=== PATIENT | female | born 1935 | race Caucasian/White ===

== ENCOUNTER 2017-02-09 09:53 | Inpatient (IN) | payer MEDICARE, OTHER ==
[2017-02-09] MEDS ORDERED: SODIUM CHLORIDE 0.9% 1,000 ML IV STA (10:08)
--- NOTE | 2017-02-09 10:20 | ED ---
General Adult HPI - General Chief complaint: Syncope Stated complaint: Fall, Syncope Time Seen by Provider: 02/09/17 09:59 Source: patient, EMS, RN notes reviewed, old records reviewed Mode of arrival: EMS Limitations: no limitations - History of Present Illness Initial comments: This is a 81-year-old female ER for evaluation. This patient presents for evaluation of syncope. Patient is an accurate historian bolus and first that patient was walking into room and completely passed out. She does not lose consciousness and has no trauma she was at the ground easily. Patient denies any chest pain headache or shortness of breath. Patient states she does feel a little weak. She states she did take his Medicare medication as described. Again patient's poor historian, history is obtained from EMS and staff - Related Data Home Medications Medication Instructions Recorded Confirmed Insulin Detemir [Levemir] 40 unit SQ DAILY@1700 12/19/14 10/21/16 Isosorbide Mononitrate [Imdur] 120 mg PO DAILY 12/19/14 10/21/16 Allopurinol [Zyloprim] 100 mg PO DAILY 05/10/15 10/21/16 [place]-3 Fatty Acids/Fish Oil [Fish 1 cap PO BID 05/10/15 10/21/16 Oil 1,000 mg Softgel] Acetaminophen Tab [Tylenol] 650 mg PO ACHS 09/14/16 10/21/16 Artificial Tears-Hypromellose 2 drops BOTH EYES BID 09/14/16 10/21/16 [Artificial Tear Drops] Menthol/Zinc Oxide [Calmoseptine 1 applic TOPICAL BID 09/14/16 10/21/16 Ointment] Naproxen Sodium [Aleve] 440 mg PO BID PRN 09/14/16 10/21/16 PARoxetine [Paxil] 10 mg PO HS 09/14/16 10/21/16 Solifenacin Succinate [Vesicare] 5 mg PO HS 09/14/16 10/21/16 metFORMIN HCL [Glucophage] 500 mg PO TID 09/14/16 10/21/16 Atenolol [Tenormin] 25 mg PO DAILY 10/21/16 10/21/16 Nystatin 1 applic TOPICAL BID 10/21/16 10/21/16 Selsun Blue Dry Scal 1% Shampoo 1 applic TOPICAL MOFR 10/21/16 10/21/16 Triamcinolone 0.1% Cream [Kenalog] 1 applic TOPICAL BID 10/21/16 10/21/16 Previous Rx's Medication Instructions Recorded Aspirin 81 mg PO DAILY #1 chewable 12/21/14 Furosemide [Lasix] 40 mg PO MOWEFR #0 09/15/16 Potassium Chloride ER [K-Dur 10] 10 meq PO MOWEFR tab.er.prt 09/15/16 Acetaminophen Tab [Tylenol] 650 mg PO Q6HR PRN #0 tab 10/23/16 Aspirin EC [Ecotrin Low Dose] 81 mg PO DAILY #30 tablet.dr 10/23/16 Atorvastatin [Lipitor] 10 mg PO HS #30 tab 10/23/16 Fenofibrate [Lofibra] 160 mg PO DAILY #30 tab 10/23/16 Folic Acid 1 mg PO DAILY@1200 #30 tab 10/23/16 Levofloxacin [Levaquin] 250 mg PO Q24H #5 tab 10/23/16 Multivitamins, Thera [Multivitamin] 1 each PO DAILY@1200 #30 tab 10/23/16 Thiamine [Vitamin B-1] 100 mg PO DAILY@1200 #30 tab 10/23/16 Allergies Allergy/AdvReac Type Severity Reaction Status Date / Time No Known Allergies Allergy Verified 02/09/17 11:19 Review of Systems ROS Statement: Those systems with pertinent positive or pertinent negative responses have been documented in the HPI. ROS Other: All systems not noted in ROS Statement are negative. Past Medical History Past Medical History: Coronary Artery Disease (CAD), Heart Failure, Diabetes Mellitus, Hyperlipidemia, Hypertension Additional Past Medical History / Comment(s): shingles a year ago, arthritis in left hand and shoulders. History of Any Multi-Drug Resistant Organisms: None Reported Past Surgical History: Heart Catheterization With Stent, Hysterectomy, Orthopedic Surgery Additional Past Surgical History / Comment(s): bilateral Cateract surgery Past Anesthesia/Blood Transfusion Reactions: No Reported Reaction Date of Last Stent Placement:: 1999 Past Psychological History: Depression Smoking Status: Never smoker Past Alcohol Use History: None Reported Past Drug Use History: None Reported - Past Family History Father Family Medical History: No Reported History General Exam Limitations: no limitations General appearance: alert, in no apparent distress Head exam: Present: atraumatic, normocephalic, normal inspection Eye exam: Present: normal appearance, PERRL, EOMI. Absent: scleral icterus, conjunctival injection, periorbital swelling ENT exam: Present: normal exam, mucous membranes moist Neck exam: Present: normal inspection. Absent: tenderness, meningismus, lymphadenopathy Respiratory exam: Present: normal lung sounds bilaterally. Absent: respiratory distress, wheezes, rales, rhonchi, stridor Cardiovascular Exam: Present: normal rhythm, bradycardia, normal heart sounds. Absent: systolic murmur, diastolic murmur, rubs, gallop, clicks GI/Abdominal exam: Present: soft, normal bowel sounds. Absent: distended, tenderness, guarding, rebound, rigid Extremities exam: Present: normal inspection, full ROM, normal capillary refill. Absent: tenderness, pedal edema, joint swelling, calf tenderness Back exam: Present: normal inspection Neurological exam: Present: alert, oriented X3, CN II-XII intact Psychiatric exam: Present: normal affect, normal mood Skin exam: Present: warm, dry, intact, normal color. Absent: rash Course Vital Signs 02/09/17 02/09/17 02/09/17 09:59 10:07 10:25 Temperature 96.9 F L Pulse Rate 52 L 46 L Pulse Rate [ 51 L Bilateral Radial] Respiratory 15 15 Rate Blood Pressure 104/56 103/56 O2 Sat by Pulse 97 100 Oximetry 02/09/17 10:48 Temperature Pulse Rate 51 L Pulse Rate [ Bilateral Radial] Respiratory 15 Rate Blood Pressure 104/54 O2 Sat by Pulse 99 Oximetry - Reevaluation(s) Reevaluation #1: 02/09/17 11:31 Patient remains bradycardic, feels like she did not pass up of blood pressure is stable EKG Findings - EKG Comments: EKG Findings:: EKG shows sinus bradycardia rate of 51, pO2 26, QRS 76, QTC 414 Medical Decision Making - Medical Decision Making 81 female the ER with syncope, bradycardia, patient was brought to the emergency room, EKG was obtained patient was placed on pacer pads secondary bradycardia, blood pressure is maintaining stable although lower than her normal , patient is not passed out one emergency room and will be admitted for telemetry and cardiology evaluation - Lab Data Result diagrams: 02/09/17 10:22 02/09/17 10:22 Lab Results 02/09/17 02/09/17 02/09/17 Range/Units 10:22 10:22 10:22 WBC 8.7 (3.8-10.6) k/uL RBC 4.02 (3.80-5.40) m/uL Hgb 11.9 (11.4-16.0) gm/dL Hct 37.1 (34.0-46.0) % MCV 92.3 (80.0-100.0) fL MCH 29.6 (25.0-35.0) pg MCHC 32.0 (31.0-37.0) g/dL RDW 15.6 H (11.5-15.5) % Plt Count 164 (150-450) k/uL Neutrophils % 71 % Lymphocytes % 15 % Monocytes % 5 % Eosinophils % 7 % Basophils % 1 % Neutrophils # 6.2 (1.3-7.7) k/uL Lymphocytes # 1.3 (1.0-4.8) k/uL Monocytes # 0.5 (0-1.0) k/uL Eosinophils # 0.6 (0-0.7) k/uL Basophils # 0.1 (0-0.2) k/uL PT (9.0-12.0) sec INR (<1.1) APTT (22.0-30.0) sec Sodium 142 (137-145) mmol/L Potassium 4.3 (3.5-5.1) mmol/L Chloride 107 (98-107) mmol/L Carbon Dioxide 24 (22-30) mmol/L Anion Gap 11 mmol/L BUN 30 H (7-17) mg/dL Creatinine 1.15 H (0.52-1.04) mg/dL Est GFR (MDRD) Af Amer 55 (>60 ml/min/1.73 sqM) Est GFR (MDRD) Non-Af 45 (>60 ml/min/1.73 sqM) Glucose 128 H (74-99) mg/dL Calcium 10.7 H (8.4-10.2) mg/dL Phosphorus 3.4 (2.5-4.5) mg/dL Magnesium 1.9 (1.6-2.3) mg/dL Total Bilirubin 0.6 (0.2-1.3) mg/dL AST 30 (14-36) U/L ALT 27 (9-52) U/L Alkaline Phosphatase 45 (38-126) U/L Total Creatine Kinase 31 (30-135) U/L CK-MB (CK-2) 0.9 (0.0-2.4) ng/mL CK-MB (CK-2) Rel Index 2.9 Troponin I <0.012 (0.000-0.034) ng/mL Total Protein 6.3 (6.3-8.2) g/dL Albumin 3.5 (3.5-5.0) g/dL 02/09/17 Range/Units 10:22 WBC (3.8-10.6) k/uL RBC (3.80-5.40) m/uL Hgb (11.4-16.0) gm/dL Hct (34.0-46.0) % MCV (80.0-100.0) fL MCH (25.0-35.0) pg MCHC (31.0-37.0) g/dL RDW (11.5-15.5) % Plt Count (150-450) k/uL Neutrophils % % Lymphocytes % % Monocytes % % Eosinophils % % Basophils % % Neutrophils # (1.3-7.7) k/uL Lymphocytes # (1.0-4.8) k/uL Monocytes # (0-1.0) k/uL Eosinophils # (0-0.7) k/uL Basophils # (0-0.2) k/uL PT 11.5 (9.0-12.0) sec INR 1.1 (<1.1) APTT 22.1 (22.0-30.0) sec Sodium (137-145) mmol/L Potassium (3.5-5.1) mmol/L Chloride (98-107) mmol/L Carbon Dioxide (22-30) mmol/L Anion Gap mmol/L BUN (7-17) mg/dL Creatinine (0.52-1.04) mg/dL Est GFR (MDRD) Af Amer (>60 ml/min/1.73 sqM) Est GFR (MDRD) Non-Af (>60 ml/min/1.73 sqM) Glucose (74-99) mg/dL Calcium (8.4-10.2) mg/dL Phosphorus (2.5-4.5) mg/dL Magnesium (1.6-2.3) mg/dL Total Bilirubin (0.2-1.3) mg/dL AST (14-36) U/L ALT (9-52) U/L Alkaline Phosphatase (38-126) U/L Total Creatine Kinase (30-135) U/L CK-MB (CK-2) (0.0-2.4) ng/mL CK-MB (CK-2) Rel Index Troponin I (0.000-0.034) ng/mL Total Protein (6.3-8.2) g/dL Albumin (3.5-5.0) g/dL Critical Care Time Critical Care Time: Yes Total Critical Care Time: 31 Disposition Clinical Impression: Syncope, Bradycardia Disposition: ADMITTED IP TO THIS HOSP Condition: Fair Referrals: Home Graham MD [Primary Care Provider] - 1-2 days
[2017-02-09 10:35] LABS: Basophils # (A) 0.1 k/uL (0-0.2); Basophils % (A) 1 %; CH 29.7; CHCM 32.4; Eosinophils # (A) 0.6 k/uL (0-0.7); Eosinophils % (A) 7 %; HCT 37.1 % (34.0-46.0); HDW 2.76; HGB 11.9 gm/dL (11.4-16.0); Luc # (Auto) 0.17; Luc % (Auto) 2; Lymphocytes # (A) 1.3 k/uL (1.0-4.8); Lymphocytes % (A) 15 %; MCH 29.6 pg (25.0-35.0); MCV 92.3 fL (80.0-100.0); Monocytes # (A) 0.5 k/uL (0-1.0); Monocytes % (A) 5 %; Neutrophils # (A) 6.2 k/uL (1.3-7.7); Neutrophils % (A) 71 %; RBC 4.02 m/uL (3.80-5.40); RDW 15.6 % (11.5-15.5); WBC 8.7 k/uL (3.8-10.6); WBC (Perox) 8.91
[2017-02-09 10:46] LABS: INR 1.1 (<1.1); Partial Thromboplastin Time 22.1 sec (22.0-30.0); Prothrombin Time 11.5 sec (9.0-12.0)
[2017-02-09 10:55] LABS: Calcium 10.7 mg/dL (8.4-10.2); Creatine Kinase 31 U/L (30-135); Magnesium 1.9 mg/dL (1.6-2.3); Phosphorous 3.4 mg/dL (2.5-4.5); Potassium 4.3 mmol/L (3.5-5.1); Total Bilirubin 0.6 mg/dL (0.2-1.3); Total Protein 6.3 g/dL (6.3-8.2)
[2017-02-09 11:06] LABS: Creatine Kinase MB 0.9 ng/mL (0.0-2.4); Troponin I <0.012 ng/mL (0.000-0.034)
[2017-02-09] MEDS ORDERED: NITROGLYCERIN SL TABS 0.4 MG TAB SUBLINGUAL PRN (11:28)
[2017-02-09] MEDS ORDERED: ASPIRIN 81 MG CHEW PO STA (11:28)
[2017-02-09 11:57] LABS: Appearance,Urine Cloudy (Clear); Bacteria,Urine Rare /hpf; Bilirubin,Urine Negative (Negative); Glucose,Urine (UA) Negative (Negative); Ketones,Urine Negative (Negative); Leukocyte Esterase,Urine Large (Negative); Nitrite,Urine Positive (Negative); Particle Count 41900; Protein,Urine Negative (Negative); RBC,Urine 17 /hpf (0-5); Specific Gravity,Urine 1.008 (1.001-1.035); Squamous Epithelial Cell,Urine 1 /hpf (0-4); UA Billing (MACRO vs. MICRO) MICRO; Urobilinogen,Urine <2.0 mg/dL (<2.0); WBC,Urine 155 /hpf (0-5)
[2017-02-09 13:33] LABS: Glucose,Whole Blood 123 mg/dL (75-99)
[2017-02-09] MEDS ORDERED: ACETAMINOPHEN TAB 500 MG TAB PO PRN (13:45)
[2017-02-09] MEDS ORDERED: NAPROXEN 250 MG TAB PO PRN (13:45)
--- NOTE | 2017-02-09 14:20 | XR ---
EXAMINATION TYPE: XR chest 1V portable DATE OF EXAM: 02/09/2017 2:00 PM COMPARISON: Prior chest x-ray 21 October 2016 HISTORY: Pneumonia TECHNIQUE: Single frontal view of the chest is obtained. FINDINGS: Heart size is stable and enlarged. There are overlying cardiac leads. Marked arthropathy i n the left shoulder. No airspace disease, pneumothorax, or pleural effusion. Pulmonary vascularity an d perri within normal limits. IMPRESSION: Cardiomegaly
[2017-02-09] MEDS: POTASSIUM CHLORIDE ER 10 MEQ TAB.ER.PRT PO SCH (14:39)
[2017-02-09] MEDS: FUROSEMIDE 40 MG TAB PO SCH (14:39)
[2017-02-09] MEDS: metFORMIN 500 MG TAB PO SCH ×2 (16:26→23:48)
[2017-02-09 17:06] LABS: Creatine Kinase 36 U/L (30-135)
[2017-02-09 17:16] LABS: Troponin I <0.012 ng/mL (0.000-0.034)
[2017-02-09 17:25] LABS: Glucose,Whole Blood 131 mg/dL (75-99)
[2017-02-09] MEDS: INSULIN DETEMIR 100 UNIT/ML 10 ML VIAL SQ SCH (17:38)
[2017-02-09] MEDS: INSULIN LISPRO (humaLOG) 300 UNIT/3 ML VIAL SQ SCH ×2 (17:39→20:40)
[2017-02-09 20:19] LABS: Glucose,Whole Blood 139 mg/dL (75-99)
[2017-02-09] MEDS: ATORVASTATIN 10 MG TAB PO SCH (20:40)
[2017-02-09] MEDS: ARTIFICIAL TEARS-HYPROMELLOSE DROPS 15 ML BTL BOTH EYES SCH (20:40)
[2017-02-09] MEDS: PARoxetine 10 MG TAB PO SCH (20:40)
[2017-02-09] MEDS: OXYBUTYNIN 10 MG TAB.ER.24 PO SCH (20:40)
[2017-02-09] MEDS ORDERED: NON-FORMULARY DRUG (Omega-3 Fatty Acids/Fish Oil [Fish Oil 1,000 Mg Softgel] 1 CAP) PO SCH (21:00)
[2017-02-09 22:37] LABS: Hemoglobin A1C 5.3 % (4.2-6.1)
[2017-02-09 23:11] LABS: Creatine Kinase 41 U/L (30-135)
[2017-02-09 23:24] LABS: Troponin I <0.012 ng/mL (0.000-0.034)
--- NOTE | 2017-02-09 23:38 | HP ---
DATE OF ADMISSION: 02/09/2017 CHIEF COMPLAINT: Syncope. HISTORY OF PRESENT ILLNESS: This 81-year-old woman with a past medical history of multiple medical problems including CAD, history of CHF, CVA, TIA, diabetes mellitus, hypertension, hyperlipidemia, DJD, history of pneumonia, history of sleep apnea, history of anxiety, depression, being followed by Dr. Graham from physician group was admitted. The patient was living in assisted living facility. Apparently, the patient walked in the lynch. The patient felt dizzy and the patient fell down and the patient had an episode of syncope which was a very brief lasting. The patient presented to [facility] and was found to have significant sinus bradycardia and heart rate was up to 30s and 40s. An EKG done in the ER showed heart rate of 51 with possibly first degree AV block as well. The patient admitted to the hospital for further evaluation and treatment. There is no history of fever, rigors or chills. There is no history of any seizures. No history of any chest pain, palpitations, hematochezia, melena at this time. The patient is receiving beta blockers. Cardiology is on the case. The patient is found to have UTI in the ER also. PAST MEDICAL HISTORY: History of coronary artery disease, history of CHF, CVA, TIA, diabetes mellitus, type II, hypertension, hyperlipidemia, degenerative joint disease, history of pneumonia, sleep apnea, syncope. History of CAD/stent, anxiety, depression. Medications prior to admission include home medications are: 1. Vitamin D3 2000 daily. 2. Aleve 220 mg b.i.d. p.r.n. 3. [place] one application b.i.d. 4. Vitamin B100 mg p.o. daily. 5. Vesicare 5 mg p.o. q.h.s. 8. Tylenol 650 p.o. 9. K-Dur 10 meq Thursday, Thursday, Thursday. 11. Multivitamin one p.o. daily. 12. Glucophage 500 mg p.o. t.i.d. 13. Levemir 40 units subcu daily. 14. Imdur 120 mg p.o. daily. 15. Lasix 40 mg Thursday, Thursday, Thursday. 16. Folic acid 1 mg daily. 17. Fish oil 1 capsule p.o. b.i.d. 18. Lofibra 60 mg p.o. daily. 19. Lipitor 10 mg q.h.s. 20. Tenormin 25 mg daily. 21. Aspirin 81 mg daily. 22. Artificial tears two drops b.i.d. 23. Zyloprim 100 mg p.o. daily. ALLERGIES: None. FAMILY HISTORY: No history of heart disease or strokes in the family. SOCIAL HISTORY: no history of smoking. No history of alcohol. REVIEW OF SYSTEMS: HEENT: No diminished vision. No diminished hearing. CARDIOVASCULAR: as mentioned earlier. RESPIRATORY: As mentioned earlier. GI: No nausea or vomiting. GENITOURINARY: No dysuria. CENTRAL NERVOUS SYSTEM: No numbness or weakness otherwise as mentioned earlier. IMMUNOLOGY/ALLERGY: No asthma or hayfever. MUSCULOSKELETAL: As mentioned HEMATOLOGY/ONCOLOGY: No history of anemia. PSYCHIATRY: As mentioned earlier. RHEUMATOLOGY: Negative. DERMATOLOGY: Negative. PHYSICAL EXAMINATION: The patient is alert and oriented times three. Pulse 51. Blood pressure 105/54. Respiratory rate 15, temperature 96.9, pulse ox 97% on room air. HEENT: Conjunctivae normal. Oral mucosa moist. NECK: No jugular venous distention. No carotid bruit. No lymph node enlargement. CARDIOVASCULAR: S1, S2, muffled. No S3, no S4. No murmur. No thrills. RESPIRATORY: Breath sounds diminished at the bases. No rhonchi, no crackles. ABDOMEN: Soft, nontender. No mass palpable. LEGS: No edema. No swelling. CENTRAL NERVOUS SYSTEM: Higher functions as mentioned earlier. Cranial nerves 2 thru 12 grossly intact. Moves all 4 limbs. No nystagmus. SKIN: No ulcer, rash or bleeding. LYMPHATICS: No lymph nodes palpable in the neck, axillae or groin. JOINTS: Deforming arthropathy present. LABS INVESTIGATIONS: At this time shows WBC 8.7, hemoglobin 11.9, creatinine is 1.15. Albumin is 10.7. UA noted urinary tract infection. ASSESSMENT: 1. Syncope for evaluation, possible orthostatic hypotension. 2. Urinary tract infection, rule out sepsis. 3. Mild acute renal failure, possibly prerenal factors. 4. Hypocalcemia secondary to dehydration. 5. Syncope secondary to orthostatic hypotension possibly. 6. Sinus bradycardia, possible secondary to beta blockers. 7. Diabetes mellitus type 2. 8. History of coronary artery disease and stent. 9. History of congestive heart failure, ejection fraction unknown. 10. History of cerebrovascular accident, transient ischemic attack. 11. Hypertension. 12. Hyperlipidemia. 13. History of degenerative joint disease. 14. History of pneumonia. 15. History of obstructive sleep apnea. 16. History of gait dysfunction. 17. History of cataract surgery. 18. Anxiety, depression, not otherwise specified. 19. FULL CODE. RECOMMENDATIONS AND DISCUSSION: In this 81 -year-old woman who presented with multiple complex medical issues, at this time, we will monitor the patient closely. Exact etiology of syncope is unclear at this time. The patient definitely had bradycardia. Would recommend to stop the beta blockers and obtain cardiology consultation for full cardiovascular work-up. Otherwise, I would also recommend antibiotics for urinary tract infection, IV Rocephin as well as follow the cultures. Rule out possible sepsis. Otherwise continue the rest of the medications. See orders for further details. Prognosis guarded. I again discussed diagnosis and prognosis at length with the patient and patient's daughter at the bedside who understand and agree. Further recommendations to follow. A copy of dictation being forwarded to Dr. Graham who is the primary physician. See orders for details. MTDD
[2017-02-10 04:58] LABS: Basophils # (A) 0.1 k/uL (0-0.2); Basophils % (A) 1 %; CH 29.3; CHCM 31.2; Eosinophils # (A) 0.4 k/uL (0-0.7); Eosinophils % (A) 7 %; HCT 39.4 % (34.0-46.0); HDW 2.64; HGB 12.1 gm/dL (11.4-16.0); Hypochromasia Slight; Luc # (Auto) 0.13; Luc % (Auto) 2; Lymphocytes # (A) 1.1 k/uL (1.0-4.8); Lymphocytes % (A) 16 %; MCHC 30.8 g/dL (31.0-37.0); MCV 94.4 fL (80.0-100.0); Mean Platelet Volume 7.1; Monocytes # (A) 0.4 k/uL (0-1.0); Monocytes % (A) 6 %; Neutrophils # (A) 4.5 k/uL (1.3-7.7); Neutrophils % (A) 69 %; RBC 4.17 m/uL (3.80-5.40); RDW 15.4 % (11.5-15.5); WBC 6.5 k/uL (3.8-10.6); WBC (Perox) 6.84
[2017-02-10 05:14] LABS: Calcium 10.3 mg/dL (8.4-10.2); Potassium 4.1 mmol/L (3.5-5.1)
[2017-02-10 07:35] LABS: Glucose,Whole Blood 80 mg/dL (75-99)
[2017-02-10] MEDS: INSULIN LISPRO (humaLOG) 300 UNIT/3 ML VIAL SQ SCH ×4 (07:37→22:37)
[2017-02-10] MEDS: PANTOPRAZOLE 40 MG TABLET PO SCH (07:37)
[2017-02-10] MEDS: ASPIRIN 325 MG TAB PO SCH (07:38)
[2017-02-10] MEDS: ALLOPURINOL 100 MG TAB PO SCH (07:38)
[2017-02-10] MEDS: ARTIFICIAL TEARS-HYPROMELLOSE DROPS 15 ML BTL BOTH EYES SCH ×2 (07:38→20:35)
[2017-02-10] MEDS: metFORMIN 500 MG TAB PO SCH ×3 (07:42→22:39)
[2017-02-10] MEDS: FENOFIBRATE 160 MG TAB PO SCH (07:42)
[2017-02-10] MEDS: THIAMINE 100 MG TAB PO SCH (07:42)
[2017-02-10] MEDS ORDERED: ISOSORBIDE MONONITRATE ER 60 MG TAB.ER.24H PO SCH (09:00)
[2017-02-10] MEDS ORDERED: ENOXAPARIN 40 MG/0.4 ML SYRINGE SQ SCH (09:00)
[2017-02-10 09:16] VITALS: BMI 35.6
[2017-02-10] MEDS: FOLIC ACID 1 MG TAB PO SCH (11:27)
[2017-02-10] MEDS: CHOLECALCIFEROL 1,000 UNIT TAB PO SCH (11:27)
[2017-02-10] MEDS: MULTIVITAMINS, THERA 1 EACH TAB PO SCH (11:27)
--- NOTE | 2017-02-10 11:49 | CONS ---
DATE OF CONSULTATION: Mrs. Duran is an 81-year-old female who is seen for the evaluation of near syncopal spell. This patient lives in assisted living home and patient was walking to the bathroom. He felt the room was spinning around and she probably passed out. She did not have any nausea or vomiting or sweating. When the EMS arrived, the patient's vital signs were stable. This patient has been taking medications for blood pressure and her heart rate was in the 50s when she arrived. She denies any history suggestive of angina. Denies any history of myocardial infarction. Her physical activities are limited. Home medications include, Levemir, Imdur, Zyloprim, Tylenol, artificial drops, Aleve, Paxil, Tenormin 25 mg daily, Lasix 40 mg Thursday, Thursday, Thursday, low-dose aspirin, Lipitor, fenofibrate and ( ). Past medical history includes a history of possible stroke, history of diabetes, hypertension, hyperlipidemia. There is no definite previous history of myocardial infarction. Patient has a prior history of cardiac catheterization with stent. Physical examination at present reveals an 81-year-old female who does not appear to be in any acute distress. In the emergency room, patient's heart rate was 52 and the blood pressure was 104/56 mmHg. HEENT examination is negative. Neck is supple. There is no increase in jugular venous pressure. Both the carotid pulses are felt. There is no bruit. Chest is symmetrical. HEART: The PMI is not felt. First and second heart sounds are normal. There is a grade 2/6 ejection systolic murmur noted. Lungs are clinically clear to auscultation and percussion. ABDOMEN: Soft. Liver and spleen are not enlarged. Bowel sounds are heard. EXTREMITIES: Peripheral pulsations are 1+. EKG shows normal sinus rhythm with sinus bradycardia. Monitor strips reviewed. Patient persists to sinus bradycardia without any significant long pauses. FINAL IMPRESSION: 1. Syncope possibly secondary to orthostatic hypotension. Patient has a sinus bradycardia, possibly secondary to involvement. 2. History of coronary artery disease. RECOMMENDATIONS: As the patient is not having any anginal pain, I will recommend to discontinue Imdur. We will check for orthostatic changes and discontinue atenolol. We will obtain echo and Doppler study.
[2017-02-10 12:10] LABS: Glucose,Whole Blood 135 mg/dL (75-99)
--- NOTE | 2017-02-10 15:20 | PN ---
DATE OF SERVICE: 02/10/2017 This 81-year-old woman who was admitted with syncope and orthostatic hypertension also had possible urinary tract infection. Cultures are negative at this time. White count is normal. No chest pain or palpitation. No fever. The patient is closely monitored. Patient has bradycardia. Cardiology is following the patient closely. PAST MEDICAL HISTORY: Reviewed. REVIEW OF SYSTEMS: CARDIOVASCULAR: As mentioned earlier. RESPIRATORY: As mentioned earlier. GI: As mentioned earlier. : No dysuria, as mentioned earlier. Current medications are reviewed and include: 1. Tylenol 500 mg q.6. p.r.n. 2. Zyloprim 100 mg p.o. daily. 3. Artificial tears. 4. Aspirin 325 mg daily. 5. Lipitor 10 mg q.h.s. 6. Rocephin 1 gram daily. 7. Vitamin D3 2000. 8. Lovenox 30 mg subcutaneous. 10. Folic acid 1 mg daily. 11. Lasix 40 mg p.o. Thursday, Thursday, Thursday. 12. Levemir 40 units a.c. daily. 13. Humalog scale. 14. Glucophage 500 mg p.o. t.i.d. 15. Multivitamins 1 p.o. daily. 16. Naprosyn p.r.n. 17. Nitrostat p.r.n. 18. Ditropan XL. 19. Protonix 40 mg daily. 20. Paxil. 21. K-Dur 10 mg. 22. Vitamin B 100 mg p.o. daily. PHYSICAL EXAMINATION: Patient is alert and oriented x3. Pulse 56, blood pressure 118/92, respiratory rate 19, temperature 98.1. Pulse was 97% on room air. HEENT: Conjunctivae normal. NECK: No jugular venous distention. CARDIOVASCULAR: S1 and S2, muffled. RESPIRATORY: Breath sounds diminished at the bases. Bilateral scattered rhonchi and crackles. ABDOMEN: Soft, nontender. No mass palpable. LEGS: No edema, no swelling. NERVOUS SYSTEM: No focal deficits. LABS: Creatinine 1.30, triglycerides 246. ASSESSMENT: 1. Syncope for evaluation, possible orthostatic hypotension. 2. Urinary tract infection. 3. Mild acute renal failure, possible prerenal factors and dehydration. 4. Hypercalcemia secondary to dehydration. 5. Syncope secondary to orthostatic hypotension possibly. 6. Sinus bradycardia, possibly secondary to beta blockers. 7. Diabetes mellitus type 2. 8. History of coronary artery disease and stent. 9. History of congestive heart failure, ejection fraction unknown. 10. History of cerebrovascular accident and transient ischemic attack. 11. Hypertension. 12. Hyperlipidemia. 13. History of degenerative joint disease. 14. History of pneumonia. 15. History of obstructive sleep apnea. 16. History of gait dysfunction. 17. History of cataract surgery. 18. Anxiety, depression, not otherwise specified. 19. FULL CODE. RECOMMENDATIONS AND DISCUSSION: I recommend to continue the current medications, continue monitoring and symptomatic treatment. Otherwise closely follow with Cardiology. The patient is still having bradycardia, which appears to be improving at this time. The 2-D echo has been taken, results are pending. Continue with the rest of the medications, continue with antibiotics. Cultures are negative so far. Prognosis guarded. Discussed with the patient and family who understand. Further recommendations to follow. MTDD
[2017-02-10 18:13] LABS: Glucose,Whole Blood 89 mg/dL (75-99)
[2017-02-10] MEDS: INSULIN DETEMIR 100 UNIT/ML 10 ML VIAL SQ SCH (18:55)
[2017-02-10] MEDS: OXYBUTYNIN 10 MG TAB.ER.24 PO SCH (20:35)
[2017-02-10] MEDS: ATORVASTATIN 10 MG TAB PO SCH (20:35)
[2017-02-10] MEDS: PARoxetine 10 MG TAB PO SCH (20:35)
[2017-02-10 22:39] LABS: Glucose,Whole Blood 102 mg/dL (75-99)
[2017-02-11 04:39] LABS: Basophils # (A) 0.1 k/uL (0-0.2); Basophils % (A) 1 %; CH 29.5; CHCM 31.4; Eosinophils # (A) 0.3 k/uL (0-0.7); Eosinophils % (A) 5 %; HDW 2.68; HGB 11.7 gm/dL (11.4-16.0); Hypochromasia Slight; Luc # (Auto) 0.11; Luc % (Auto) 2; Lymphocytes % (A) 16 %; MCH 29.8 pg (25.0-35.0); MCHC 31.5 g/dL (31.0-37.0); MCV 94.5 fL (80.0-100.0); Mean Platelet Volume 7.8; Monocytes # (A) 0.4 k/uL (0-1.0); Monocytes % (A) 6 %; Neutrophils # (A) 4.6 k/uL (1.3-7.7); Neutrophils % (A) 71 %; RBC 3.92 m/uL (3.80-5.40); RDW 15.6 % (11.5-15.5); WBC 6.4 k/uL (3.8-10.6); WBC (Perox) 6.74
[2017-02-11 04:56] LABS: Calcium 9.8 mg/dL (8.4-10.2); Potassium 4.1 mmol/L (3.5-5.1)
[2017-02-11 07:42] LABS: Glucose,Whole Blood 83 mg/dL (75-99)
[2017-02-11] MEDS: INSULIN LISPRO (humaLOG) 300 UNIT/3 ML VIAL SQ SCH ×4 (08:21→22:47)
[2017-02-11] MEDS: ASPIRIN 325 MG TAB PO SCH (08:22)
[2017-02-11] MEDS: ARTIFICIAL TEARS-HYPROMELLOSE DROPS 15 ML BTL BOTH EYES SCH ×2 (08:22→22:47)
[2017-02-11] MEDS: POTASSIUM CHLORIDE ER 10 MEQ TAB.ER.PRT PO SCH (08:22)
[2017-02-11] MEDS: ENOXAPARIN 30 MG/0.3 ML SYRINGE SQ SCH (08:22)
[2017-02-11] MEDS: ALLOPURINOL 100 MG TAB PO SCH (08:22)
[2017-02-11] MEDS: FENOFIBRATE 160 MG TAB PO SCH (08:23)
[2017-02-11] MEDS: PANTOPRAZOLE 40 MG TABLET PO SCH (08:23)
[2017-02-11] MEDS: FUROSEMIDE 40 MG TAB PO SCH (08:23)
[2017-02-11] MEDS: THIAMINE 100 MG TAB PO SCH (08:24)
[2017-02-11] MEDS: metFORMIN 500 MG TAB PO SCH ×3 (08:24→22:46)
--- NOTE | 2017-02-11 09:38 | ECHOF ---
Referral Reason:syncope MEASUREMENTS -------- HEIGHT: 152.4 cm WEIGHT: 79.8 kg BP: RVIDd: 2.9 cm (< 3.3) IVSd: 1.4 cm (0.6 - 1.1) LVIDd: 4.1 cm (3.9 - 5.3) LVPWd: 1.0 cm (0.6 - 1.1) IVSs: 1.5 cm LVIDs: 2.9 cm LVPWs: 1.1 cm LA Diam: 3.2 cm (2.7 - 3.8) Ao Diam: 2.8 cm (2.0 - 3.7) AV Cusp: 1.5 cm (1.5 - 2.6) LA Diam: 3.9 cm (2.7 - 3.8) MV EXCURSION: 14.285 mm (> 18.000) MV EF SLOPE: 33 mm/s (70 - 150) EPSS: 0.4 cm MV E Donald: 0.87 m/s MV DecT: 442 ms MV A Donald: 1.13 m/s MV E/A Ratio: 0.77 RAP: 5.00 mmHg RVSP: 17.61 mmHg FINDINGS -------- Sinus rhythm. This was a technically adequate study. There is moderate concentric left ventricular hypertrophy. Overall left ventricular systolic function is low-normal with, an EF between 50 - 55 %. The right ventricle is normal in size. The left atrial size is normal. The right atrial size is normal. There is mild aortic valve sclerosis. There is no evidence of aortic regurgitation. Mild mitral annular calcification present. Mild mitral regurgitation is present. Mild tricuspid regurgitation present. There is no evidence of pulmonary hypertension. The right ventricular systolic pressure, as measured by Doppler, is 17.61mmHg. There is no pulmonic regurgitation present. The aortic root size is normal. There is no pericardial effusion. CONCLUSIONS -------- 1. There is moderate concentric left ventricular hypertrophy. 2. Overall left ventricular systolic function is low-normal with, an EF between 50 - 55 %. 3. There is mild aortic valve sclerosis. 4. Mild mitral annular calcification present. 5. Mild mitral regurgitation is present. 6. Mild tricuspid regurgitation present. 7. There is no evidence of pulmonary hypertension. 8. The right ventricular systolic pressure, as measured by Doppler, is 17.61mmHg. TECHNOLOGY INSTRUCTOR: Chelita Kurtz RDCS
--- NOTE | 2017-02-11 13:55 | PN ---
This patient was admitted with a history of syncope which appears to be secondary to orthostatic hypotension. Patient subsequently was noticed to have some sinus bradycardia. Patient remains asymptomatic. Heart rate remains in the range of 60. No significant bradyarrhythmias are noted. Blood pressure is 145/48 mmHg. First and second heart sounds are normal. Lungs are clinically clear to auscultation and percussion. Patient's echocardiogram reveals normal left ventricular systolic function. Patient can be ambulated and discharged home.
[2017-02-11] MEDS: FOLIC ACID 1 MG TAB PO SCH (14:08)
[2017-02-11] MEDS: MULTIVITAMINS, THERA 1 EACH TAB PO SCH (14:08)
[2017-02-11] MEDS: CHOLECALCIFEROL 1,000 UNIT TAB PO SCH (14:08)
[2017-02-11 14:56] LABS: Glucose,Whole Blood 109 mg/dL (75-99)
[2017-02-11 17:12] LABS: Glucose,Whole Blood 103 mg/dL (75-99)
[2017-02-11] MEDS: INSULIN DETEMIR 100 UNIT/ML 10 ML VIAL SQ SCH (17:34)
--- NOTE | 2017-02-11 19:24 | PN ---
DATE OF SERVICE: 02/11/2017 This 81-year-old woman who was admitted with syncope and orthostatic hypotension is being closely monitored. Patient had UTI also. Cardiology is following the patient closely. The echocardiogram showed normal LV function. Past medical history reviewed. REVIEW OF SYSTEMS: CARDIOVASCULAR SYSTEM: As mentioned earlier. RESPIRATORY SYSTEM: No cough. GI: No nausea. : No dysuria. NERVOUS SYSTEM: No numbness or weakness. Current medications are reviewed and include: 1. Tylenol 500 mg q.6 p.r.n. 2. Zyloprim 100 mg daily. 3. Artificial Tears. 4. Aspirin 325 mg daily. 5. Lipitor 10 mg at bedtime. 6. Rocephin 1 gram daily. 7. Vitamin D3 2000 units. 8. Lovenox 30 mg subcutaneously daily. 9. Lofibra 160 mg p.o. daily. 10. Folic acid 1 mg p.o. daily. 11. Lasix 40 mg Thursday, Thursday and Thursday. 12. Levemir 40 units subcutaneously daily. 13. Humalog. 14. Glucophage 500 mg p.o. t.i.d. 15. Multivitamins 1 p.o. daily. 16. Naprosyn 250 mg p.o. b.i.d. 17. Nitrostat 0.4 sublingually p.r.n. 18. Ditropan XL 10 mg p.o. at bedtime. 19. Protonix 40 mg p.o. daily. 20. Paxil 10 mg p.o. at bedtime. 21. K-Dur 10 mEq p.o. Thursday, Thursday and Thursday. 22. Vitamin B1 100 mg p.o. daily. PHYSICAL EXAMINATION: Patient is alert and oriented x3. Pulse is 57, blood pressure 144/62, respiration 26, temperature 98.0, pulse ox 96% on room air. HEENT: Conjunctivae normal. NECK: No jugular venous distention. CARDIOVASCULAR SYSTEM: S1, S2 muffled. RESPIRATORY SYSTEM: Breath sounds diminished at the bases. A few scattered rhonchi and crackles. ABDOMEN: Soft, obese, nontender. No mass palpable. LEGS: No edema. No swelling. NERVOUS SYSTEM: Higher functions as mentioned earlier. Moves all 4 limbs. No focal motor or sensory deficit. LYMPHATICS: No lymph node palpable in neck, axillae or groin. SKIN: No ulcer, rash, bleeding. LABS: Platelets 170. Creatinine is 1.20. ASSESSMENT: 1. Syncope for evaluation; possible orthostatic hypotension. 2. Urinary tract infection. 3. Mild acute renal failure, possibly prerenal factors and dehydration, present on admission. 4. Hypercalcemia secondary to dehydration and syncope secondary to orthostatic hypotension possibly. 5. Sinus bradycardia, possibly secondary to beta blockers. 6. Diabetes mellitus, type 2. 7. History of coronary artery disease and stent. 8. Thrombocytopenia, stable. 9. History of congestive heart failure; with chronic diastolic dysfucntion. 10. History of cerebrovascular accident, transient ischemic attack. 11. Hypertension, essential. 12. Hyperlipidemia. 13. History of degenerative joint disease. 14. History of pneumonia. 15. History of obstructive sleep apnea. 16. History of gait dysfunction. 17. History of cataract surgery. 18. Anxiety, depression not otherwise specified. 19. FULL CODE. RECOMMENDATIONS AND DISCUSSION: In this 81-year-old woman who presented with multiple complex medical issues, we will monitor the patient closely, continue the current medication, continue with symptomatic treatment. Otherwise, at this time I would recommend continuing to avoid the beta blockers. Increase ambulation. Guarded prognosis. Closely follow with Cardiology. Further recommendations to follow. Monitor renal functions. MTDD
[2017-02-11 21:01] LABS: Glucose,Whole Blood 118 mg/dL (75-99)
[2017-02-11] MEDS: OXYBUTYNIN 10 MG TAB.ER.24 PO SCH (22:46)
[2017-02-11] MEDS: PARoxetine 10 MG TAB PO SCH (22:46)
[2017-02-11] MEDS: ATORVASTATIN 10 MG TAB PO SCH (22:46)
[2017-02-12 07:11] LABS: Glucose,Whole Blood 74 mg/dL (75-99)
[2017-02-12 07:33] VITALS: BP 143/66; PULSE 62; RESP 20; TEMP 96.8
[2017-02-12] MEDS: INSULIN LISPRO (humaLOG) 300 UNIT/3 ML VIAL SQ SCH ×2 (07:52→11:57)
[2017-02-12] MEDS: ALLOPURINOL 100 MG TAB PO SCH (08:34)
[2017-02-12] MEDS: PANTOPRAZOLE 40 MG TABLET PO SCH (08:34)
[2017-02-12] MEDS: ARTIFICIAL TEARS-HYPROMELLOSE DROPS 15 ML BTL BOTH EYES SCH (08:34)
[2017-02-12] MEDS: metFORMIN 500 MG TAB PO SCH (08:35)
[2017-02-12] MEDS: ASPIRIN 325 MG TAB PO SCH (08:35)
[2017-02-12] MEDS: ENOXAPARIN 30 MG/0.3 ML SYRINGE SQ SCH (08:35)
[2017-02-12] MEDS: FENOFIBRATE 160 MG TAB PO SCH (08:35)
[2017-02-12] MEDS: THIAMINE 100 MG TAB PO SCH (08:36)
[2017-02-12 10:08] LABS: Basophils # (A) 0.1 k/uL (0-0.2); Basophils % (A) 1 %; CH 29.9; Eosinophils # (A) 0.6 k/uL (0-0.7); Eosinophils % (A) 8 %; HCT 38.8 % (34.0-46.0); HDW 2.73; HGB 12.4 gm/dL (11.4-16.0); Luc # (Auto) 0.12; Luc % (Auto) 2; Lymphocytes % (A) 14 %; MCH 30.1 pg (25.0-35.0); MCHC 31.9 g/dL (31.0-37.0); MCV 94.2 fL (80.0-100.0); Monocytes # (A) 0.3 k/uL (0-1.0); Monocytes % (A) 4 %; Neutrophils # (A) 4.8 k/uL (1.3-7.7); Neutrophils % (A) 71 %; RBC 4.12 m/uL (3.80-5.40); RDW 15.6 % (11.5-15.5); WBC 6.7 k/uL (3.8-10.6); WBC (Perox) 7.09
[2017-02-12 10:09] LABS: Anion Gap 14 mmol/L; Blood Urea Nitrogen 34 mg/dL (7-17); Calcium 10.3 mg/dL (8.4-10.2); Carbon Dioxide 22 mmol/L (22-30); Chloride 106 mmol/L (98-107); Glucose 116 mg/dL (74-99); Non-African American GFR(MDRD) 51 (>60 ml/min/1.73 sqM); Sodium 142 mmol/L (137-145)
[2017-02-12] MEDS: MULTIVITAMINS, THERA 1 EACH TAB PO SCH (11:53)
[2017-02-12] MEDS: FOLIC ACID 1 MG TAB PO SCH (11:53)
[2017-02-12] MEDS: CHOLECALCIFEROL 1,000 UNIT TAB PO SCH (11:53)
[2017-02-12 11:57] LABS: Glucose,Whole Blood 142 mg/dL (75-99)
--- NOTE | 2017-02-12 13:04 | CDI ---
J[facility] [address] [place] [address] Documentation Clarification Form Date: 02/12/2017 From: MIKE Hendricks, CCDS Admit Date: 02/09/2017 Patient Name: Adilene Duran Visit Number: [id number] Dr Norma Bro History of CHF, ef unknown is documented in the progress notes. History/Risk Factors: Hypertension DM type 2 Clinical Indicators: Echocardiogram Results on 02/10/2017: ef 50-55%, moderate left ventricular hypertrophy Treatment: PO Lasix In your professional opinion, can you please clarify the acuity and type of CHF if known? Chronic Systolic CHF Chronic Diastolic CHF Chronic Systolic and Diastolic CHF Unable to determine Other, please specify Please document in your progress notes and discharge summary in order to capture severity of illness and risk of mortality. Include clinical findings that support your diagnosis. FYI: Press F11 to launch patient chart. Place X here if this finding has no clinical significance, is not applicable or if you are not able to provide any additional documentation. VINCENT
--- NOTE | 2017-02-12 15:22 | DS ---
DATE OF ADMISSION: 02/09/2017 DATE OF DISCHARGE: 02/12/2017 FINAL DIAGNOSES: 1. Syncope, possibly secondary to orthostatic hypotension. 2. Urinary tract infection. 3. Mild acute renal failure, possibly prerenal factors and dehydration, present on admission. 4. Hypercalcemia secondary to dehydration. 5. Sinus bradycardia, possibly secondary to beta blockers. 6. Diabetes mellitus type 2. 7. History of coronary artery disease and stent. 8. Thrombocytopenia, stable. 9. History of congestive heart failure with chronic diastolic dysfunction, ejection fraction 50% to 55%. 10. History of cerebrovascular accident, transient ischemic attack. 11. Hypertension, essential. 12. Hyperlipidemia. 13. History of degenerative joint disease. 14. History of pneumonia. 15. History of obstructive sleep apnea. 16. History of gait dysfunction. 17. History of cataracts. 18. History of anxiety, depression, not otherwise specified. 19. FULL CODE. DISCHARGE DISPOSITION: Patient will be discharged in a stable condition with guarded prognosis. Discharge cleared by multiple consultants. HISTORY OF PRESENT ILLNESS: This is an 81-year-old woman with a past medical history of multiple medical problems including syncope as well as UTI. Patient also had bradycardia, possibly secondary to beta blockers. Patient has been followed by Dr. Graham in the outpatient setting. The patient was treated symptomatically. Cardiology saw the patient. Recommended to followup in the outpatient setting. On exam, vitals are stable. CARDIOVASCULAR SYSTEM: S1, S2 muffled. ABDOMEN: Soft. NERVOUS SYSTEM: No focal deficits. The platelets are 117. Recommend outpatient followup. The sugar is 116. DISCHARGE ADVICE: 1. Diet is cardiac. 2. Activity limited until followup. 3. Follow up with Dr. Graham in 2 to 3 days. 4. Follow up with Cardiology Team as recommended. 5. Follow up with CBC, BMP in 2 to 3 days. The medications are: 1. Selsun Blue one application topically. 2. Tylenol 650 q.a.c. and at bedtime. 3. Zyloprim 100 mg p.o. daily. 4. Artificial tears two drops both eyes b.i.d. 5. Aspirin 81 mg p.o. daily. 6. Lipitor 10 mg q.h.s. 7. Ceftin 500 mg p.o. b.i.d. for 5 days. 8. Vitamin D3 two thousand daily. 9. Lofibra 160 mg p.o. b.i.d. 10. Folic acid 1 mg daily. 11. Lasix 40 mg Thursday, Thursday, Thursday. 12. Levemir 40 units subQ daily. 13. Menthol zinc oxide topically daily. 14. Multivitamin 1 p.o. daily. 15. Aleve 220 mg p.o. b.i.d. p.r.n. 16. [place]-3 fatty acid 1 capsule p.o. b.i.d. 17. Paxil 10 mg p.o. q.h.s. 18. K-Dur 10 mEq p.o. Thursday, Thursday, Thursday along with Lasix. 19. Vesicare 5 mg p.o. q.h.s. 20. Thiamine 100 mg p.o. daily. 21. Glucophage 500 mg p.o. t.i.d. Once again, the patient will be discharged in stable condition with guarded prognosis.
== END 2017-02-12 14:26 | disposition home or self-care (01) | DRG 312 ==
LOC: EC 09:53 → SUPCPDRO 09:53 → 6SEL 11:28 → 6ICU 13:10 → 4MS4W 02-11 15:25
PROVIDERS: ADMIT Hospitalist; ATTEND Hospitalist
DX: I95.1 Orthostatic hypotension (principal); N17.9 Acute kidney failure, unspecified; I50.32 Chronic diastolic (congestive) heart failure; N39.0 Urinary tract infection, site not specified; D69.6 Thrombocytopenia, unspecified; E83.52 Hypercalcemia; E86.0 Dehydration; R00.1 Bradycardia, unspecified; T50.995A Adverse effect of other drugs, medicaments and biological substances, initial encounter; E11.9 Type 2 diabetes mellitus without complications; E78.5 Hyperlipidemia, unspecified; F32.9 Major depressive disorder, single episode, unspecified; F41.9 Anxiety disorder, unspecified; G47.33 Obstructive sleep apnea (adult) (pediatric); I10 Essential (primary) hypertension; I25.10 Atherosclerotic heart disease of native coronary artery without angina pectoris; M19.042 Primary osteoarthritis, left hand; R26.9 Unspecified abnormalities of gait and mobility; R01.1 Cardiac murmur, unspecified; M19.012 Primary osteoarthritis, left shoulder; M19.011 Primary osteoarthritis, right shoulder; E66.9 Obesity, unspecified; Z68.35 Body mass index [BMI] 35.0-35.9, adult; Z79.82 Long term (current) use of aspirin; Z79.899 Other long term (current) drug therapy; Z79.4 Long term (current) use of insulin; Z95.5 Presence of coronary angioplasty implant and graft; Y92.009 Unspecified place in unspecified non-institutional (private) residence as the place of occurrence of the external cause
CPT/HCPCS: 36415; 71010; 80048; 80053; 80061; 81001; 82550; 82553; 83036; 83735; 84100; 84443; 84484; 85025; 85610; 85730; 87040; 87077; 87086; 87186; 93005; 93306; 96360; 96361; 99291

== ENCOUNTER 2017-06-09 15:37 | Emergency (ER) | payer MEDICARE, OTHER ==
[2017-06-09] MEDS ORDERED: SODIUM CHLORIDE 0.9% 1,000 ML IV ONE (16:21)
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
[2017-06-09 16:40] LABS: Basophils # (A) 0.1 k/uL (0-0.2); Basophils % (A) 1 %; CH 29.3; CHCM 33.2; Eosinophils # (A) 0.7 k/uL (0-0.7); Eosinophils % (A) 8 %; HCT 38.5 % (34.0-46.0); HDW 3.04; HGB 13.2 gm/dL (11.4-16.0); Luc % (Auto) 1; Lymphocytes # (A) 1.3 k/uL (1.0-4.8); Lymphocytes % (A) 17 %; MCH 30.4 pg (25.0-35.0); MCHC 34.3 g/dL (31.0-37.0); MCV 88.7 fL (80.0-100.0); Mean Platelet Volume 7.2; Monocytes # (A) 0.5 k/uL (0-1.0); Monocytes % (A) 7 %; Neutrophils # (A) 5.4 k/uL (1.3-7.7); Neutrophils % (A) 67 %; RBC 4.33 m/uL (3.80-5.40); RDW 14.3 % (11.5-15.5); WBC 8.1 k/uL (3.8-10.6); WBC (Perox) 7.91
[2017-06-09 16:48] LABS: ALT 29 U/L (9-52); AST 35 U/L (14-36); Alkaline Phosphatase 80 U/L (38-126); Amylase <30 U/L (30-110); Anion Gap 10 mmol/L; Blood Urea Nitrogen 27 mg/dL (7-17); Calcium 10.6 mg/dL (8.4-10.2); Carbon Dioxide 25 mmol/L (22-30); Chloride 105 mmol/L (98-107); Glucose 189 mg/dL (74-99); Non-African American GFR(MDRD) 42 (>60 ml/min/1.73 sqM); Potassium 4.7 mmol/L (3.5-5.1); Sodium 140 mmol/L (137-145); Total Bilirubin 0.5 mg/dL (0.2-1.3); Total Protein 6.8 g/dL (6.3-8.2)
--- NOTE | 2017-06-09 16:54 | XR ---
EXAMINATION TYPE: XR KUB DATE OF EXAM: 06/09/2017 CLINICAL DATA: 81-year-old female with pain, PHH COMPARISON: None FINDINGS: Lung bases are clear. No evidence for free intraperitoneal air. No dilated small bowel or air-fluid levels. Scattered air and stool seen throughout the colon extendi ng distally into the rectum. Gassy bowel loops are seen throughout. Calcifications on both side of the abdomen, 2 on the right measuring 7 mm each and one on the left me asuring 1.3 cm. These are nonspecific and may represent renal calculi. Bony deformity to the anterior right iliac wing could be posttraumatic or postsurgical. IMPRESSION: 1. No evidence of bowel obstruction or free intraperitoneal air. Prominent gassy bowel loops. 2. Calcifications on both sides of the abdomen measuring up to 1.2 cm. These are nonspecific and may represent renal calculi.
[2017-06-09 17:43] LABS: Appearance,Urine Cloudy (Clear); Bacteria,Urine Occasional /hpf; Bilirubin,Urine Negative (Negative); Glucose,Urine (UA) Negative (Negative); Ketones,Urine Negative (Negative); Leukocyte Esterase,Urine Large (Negative); Mucus,Urine Rare /hpf; Nitrite,Urine Negative (Negative); Particle Count 2263; Protein,Urine Trace (Negative); RBC,Urine 14 /hpf (0-5); Specific Gravity,Urine 1.009 (1.001-1.035); Squamous Epithelial Cell,Urine <1 /hpf (0-4); UA Billing (MACRO vs. MICRO) MICRO; Urobilinogen,Urine <2.0 mg/dL (<2.0); WBC,Urine 130 /hpf (0-5)
[2017-06-09 18:10] VITALS: BP 120/57; PULSE 50; RESP 16; TEMP 98.4
--- NOTE | 2017-06-09 18:13 | CT ---
EXAMINATION TYPE: CT abdomen pelvis wo con DATE OF EXAM: 06/09/2017 COMPARISON: Abdomen same date HISTORY: Patient complains of right flank pain. CT DLP: 826.7 mGycm Automated exposure control for dose reduction was used. TECHNIQUE: Helical acquisition of images from the lung bases through the pelvis. FINDINGS: No pneumoperitoneum, retroperitoneal adenopathy, or ascites. LUNG BASES: There is some basilar bronchiectasis present bilaterally, some dependent atelectatic patterson ges. Bilateral breast calcifications are diffuse. Calcification present at the level of the aortic ro ot, mitral annulus. AORTA: Atheromatous changes are present. LIVER/GB: Nodular contour within the liver compatible with underlying cirrhosis. Gallbladder within n ormal limits. PANCREAS: Small duodenal diverticulum present at the second and third portion of the duodenum, pancre as somewhat atrophic. SPLEEN: No significant abnormality is seen. ADRENALS: No significant abnormality is seen. KIDNEYS: Bilateral renal calculi are present. Within the renal pelvis on the left there is multiple c alcifications, 3-4, largest measures approximately 12 mm in size. Adjacent the renal pelvis there is some fluid density suggestive of inflammatory change. The lower pole of the left kidney multiple calc cathy are present, largest measuring approximately 5 to 6 mm. Midpole also shows a nonobstructive calcu walter on the left. On the right multiple calculi are also present, kidney shows malrotation. Nonobstruc tive posterior calculi present on the right largest measuring approximately 6 mm. Possible parenchyma l calcification present mid pole on the right measuring 7 mm. REPRODUCTIVE ORGANS: Uterus and adnexal structures are not seen. URINARY BLADDER: Urinary bladder is not dilated, there may be wall thickening. BOWEL: Diverticular change is extensive, along the sigmoid colon difficult to exclude some mild infl ammatory change adjacent to some diverticula. FREE AIR: No Free Air is visible. ASCITES: None visible. PELVIC ADENOPATHY: None visualized. RETROPERITONEAL ADENOPATHY: No Retroperitoneal Adenopathy visible. OSSEOUS STRUCTURES: Degenerative disc disease, facet arthropathy changes are present. Anterior abdominal wall shows some increased attenuation, difficult to exclude a local cellulitis inf eriorly. IMPRESSION: CORRELATE FOR URINARY TRACT INFECTION, POSSIBLE PYELONEPHRITIS, CYSTITIS. CIRRHOSIS. DIVERTICULOSIS, CORRELATE FOR POSSIBLE DIVERTICULITIS. NONCONTRAST EXAM. POSTOP CHANGES. BILATERAL NEPHROLITHIASIS.
[2017-06-09] MEDS ORDERED: metroNIDAZOLE 500 MG TAB PO STA (18:37)
[2017-06-09] MEDS ORDERED: CIPROFLOXACIN HCL 500 MG TAB PO STA (18:37)
== END 2017-06-09 18:57 | disposition home or self-care (01) ==
LOC: EC 15:37
DX: K57.92 Diverticulitis of intestine, part unspecified, without perforation or abscess without bleeding (principal); N39.0 Urinary tract infection, site not specified; I25.10 Atherosclerotic heart disease of native coronary artery without angina pectoris; I50.9 Heart failure, unspecified; E11.9 Type 2 diabetes mellitus without complications; I10 Essential (primary) hypertension; M19.90 Unspecified osteoarthritis, unspecified site; F32.9 Major depressive disorder, single episode, unspecified; F41.9 Anxiety disorder, unspecified; Z79.4 Long term (current) use of insulin; Z79.899 Other long term (current) drug therapy; Z79.891 Long term (current) use of opiate analgesic; Z95.5 Presence of coronary angioplasty implant and graft
CPT/HCPCS: 36415; 74000; 74176; 80053; 81001; 82150; 83605; 83690; 85025; 87040; 99284

== ENCOUNTER 2017-07-22 10:34 | Inpatient (IN) | payer MEDICARE, OTHER ==
[2017-07-22] MEDS ORDERED: SODIUM CHLORIDE 0.9% 1,000 ML IV STA ×2 (10:44)
[2017-07-22] MEDS ORDERED: RX INFO: IV CONTRAST WAS GIVEN 1 EACH MISC MISCELLANE PRN (10:44)
[2017-07-22] MEDS ORDERED: MORPHINE SULFATE 4 MG/ML SYRINGE IV STA (10:44)
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
[2017-07-22 11:21] LABS: ALT 39 U/L (9-52); AST 25 U/L (14-36); Alkaline Phosphatase 85 U/L (38-126); Amylase <30 U/L (30-110); Anion Gap 9 mmol/L; Basophils # (A) 0.1 k/uL (0-0.2); Basophils % (A) 1 %; Blood Urea Nitrogen 16 mg/dL (7-17); CH 29.5; CHCM 33.2; Carbon Dioxide 25 mmol/L (22-30); Chloride 105 mmol/L (98-107); Eosinophils # (A) 0.3 k/uL (0-0.7); Eosinophils % (A) 3 %; Glucose 229 mg/dL (74-99); HCT 42.7 % (34.0-46.0); HGB 14.6 gm/dL (11.4-16.0); Luc # (Auto) 0.13; Luc % (Auto) 1; Lymphocytes # (A) 1.1 k/uL (1.0-4.8); Lymphocytes % (A) 10 %; MCH 30.5 pg (25.0-35.0); MCHC 34.3 g/dL (31.0-37.0); MCV 89.1 fL (80.0-100.0); Mean Platelet Volume 7.3; Monocytes # (A) 0.6 k/uL (0-1.0); Monocytes % (A) 6 %; Neutrophils # (A) 8.8 k/uL (1.3-7.7); Neutrophils % (A) 80 %; Non-African American GFR(MDRD) >60 (>60 ml/min/1.73 sqM); RBC 4.79 m/uL (3.80-5.40); RDW 14.7 % (11.5-15.5); Sodium 139 mmol/L (137-145); Total Protein 6.5 g/dL (6.3-8.2)
[2017-07-22 11:35] LABS: Creatine Kinase <20 U/L (30-135)
[2017-07-22 11:47] LABS: Creatine Kinase MB 0.5 ng/mL (0.0-2.4); Troponin I <0.012 ng/mL (0.000-0.034)
[2017-07-22 12:23] LABS: Appearance,Urine Cloudy (Clear); Bacteria,Urine Many /hpf; Bilirubin,Urine Negative (Negative); Glucose,Urine (UA) Negative (Negative); Ketones,Urine Negative (Negative); Leukocyte Esterase,Urine Large (Negative); Mucus,Urine Rare /hpf; Nitrite,Urine Negative (Negative); PH, Urine 5.5 (5.0-8.0); Particle Count 2003; Protein,Urine Negative (Negative); RBC,Urine 1 /hpf (0-5); Specific Gravity,Urine 1.004 (1.001-1.035); Squamous Epithelial Cell,Urine 1 /hpf (0-4); UA Billing (MACRO vs. MICRO) MICRO; Urobilinogen,Urine <2.0 mg/dL (<2.0); WBC,Urine 68 /hpf (0-5)
--- NOTE | 2017-07-22 14:13 | CT ---
EXAMINATION TYPE: CT abdomen pelvis w con DATE OF EXAM: 07/22/2017 COMPARISON: Prior CT abdomen pelvis 06/09/2017 HISTORY: Patient complains of RLQ pain. CT DLP: 1598.3 mGycm Automated exposure control for dose reduction was used. TECHNIQUE: Helical acquisition of images from the lung bases through the pelvis have been completed. CONTRAST: Performed without Oral Contrast and with IV Contrast, patient injected with 100 mL of Omnipaque 300. FINDINGS: Bilateral breast calcifications are present. LUNG BASES: Dependent atelectatic changes are present. No pleural or pericardial effusion. There are coronary artery calcifications. The heart is enlarged. AORTA: No significant abnormality is appreciated. LIVER/GB: The liver shows a nodular contour and low attenuation and is enlarged, there may be underly ing hepatocellular disease, cirrhosis, hepatic steatosis, gallbladder is normal. PANCREAS: Pancreas is somewhat atrophic. Pancreatic head shows associated duodenal diverticulum at th e second portion of the duodenum with an air-fluid level. SPLEEN: Spleen is enlarged. ADRENALS: No significant abnormality is seen. KIDNEYS: Nonobstructive calculi are present bilaterally, at the upper pole of the right kidney there is a calcification measuring approximately 6 mm, the mid pole there is a calcification measuring appr oximately 4 to 5 mm. The left kidney shows a calcification at the lower pole measuring only 7 mm, the re may be 2 distinct calcifications. At the mid pole there is a calcification measuring 4 to 5 mm. Th e left renal pelvis shows a calcification present measuring 9 mm. There is some inflammatory change a bout the renal pelvis. No ureteral dilation is evident. Small probable cortical cysts associated with the kidneys. REPRODUCTIVE ORGANS: Not seen, there is suggestion of fatty lesion in the right hemipelvis with some peripheral calcification which is indeterminate measuring approximately 4.7 cm, teratoma or postop ch uziel could be present. BOWEL: Retained fecal debris present throughout much of the distribution of the colon. Some inflamma tory change in the right lower quadrant is present, there is some local increased density within some pericecal fat laterally, the appendix not seen with certainty FREE AIR: No Free Air visible. ASCITES: None visible. PELVIC ADENOPATHY: None visualized. RETROPERITONEAL ADENOPATHY: No Retroperitoneal Adenopathy visible. URINARY BLADDER: No significant abnormality is seen. OSSEOUS STRUCTURES: No significant abnormality is seen. Injection granuloma noted in the visualized subcutaneous fat the right lower quadrant. IMPRESSION: ABNORMAL ATTENUATION IN THE RIGHT LOWER QUADRANT WITHIN THE FAT, CORRELATE FOR POSSIBLE APPENDICITIS, THE APPENDIX IS NOT SEEN WITH CERTAINTY. NONOBSTRUCTIVE NEPHROLITHIASIS. CORRELATE FOR POSSIBLE URIN NELLI TRACT INFECTION. HEPATOSPLENOMEGALY. CORRELATE FOR FECAL STASIS. Additional findings above.
[2017-07-22] MEDS ORDERED: SODIUM CHLORIDE 0.9% 1,000 ML IV ONE (14:21)
[2017-07-22] MEDS ORDERED: ONDANSETRON 4 MG/2 ML VIAL IVP PRN (14:22)
[2017-07-22 16:00] VITALS: BMI 35.1
[2017-07-22] MEDS ORDERED: MAGNESIUM CITRATE 296 ML BOTTLE PO ONE (16:20)
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
[2017-07-22 16:35] LABS: Glucose,Whole Blood 144 mg/dL (75-99)
[2017-07-22] MEDS: INSULIN LISPRO (humaLOG) 300 UNIT/3 ML VIAL SQ SCH ×2 (17:57→22:13)
[2017-07-22] MEDS: INSULIN DETEMIR 100 UNIT/ML 10 ML VIAL SQ SCH (17:57)
[2017-07-22 22:07] LABS: Glucose,Whole Blood 233 mg/dL (75-99)
[2017-07-22] MEDS: ACETAMINOPHEN TAB 325 MG TAB PO SCH (22:08)
[2017-07-22] MEDS: OXYBUTYNIN XL 5 MG TAB.ER.24 PO SCH (22:09)
[2017-07-22] MEDS: PARoxetine 10 MG TAB PO SCH (22:09)
[2017-07-22] MEDS: ARTIFICIAL TEARS-HYPROMELLOSE DROPS 15 ML BTL BOTH EYES SCH (22:09)
[2017-07-22] MEDS: METOCLOPRAMIDE 10 MG TAB PO SCH (22:09)
[2017-07-22] MEDS: MEMANTINE 5 MG TAB PO SCH (22:09)
[2017-07-22] MEDS: ATORVASTATIN 10 MG TAB PO SCH (22:10)
[2017-07-22] MEDS: NYSTATIN 100,000 UNIT/GM OINT 30 GM TUBE TOPICAL SCH (22:11)
[2017-07-22] MEDS: DICLOFENAC SODIUM GEL 100 GM TUBE TOPICAL SCH (22:11)
[2017-07-23] MEDS: DICLOFENAC SODIUM GEL 100 GM TUBE TOPICAL SCH ×4 (00:52→20:36)
[2017-07-23 07:14] LABS: Basophils % (A) 1 %; CH 29.1; CHCM 32.3; Eosinophils # (A) 0.4 k/uL (0-0.7); Eosinophils % (A) 5 %; HCT 40.9 % (34.0-46.0); HDW 3.18; HGB 13.7 gm/dL (11.4-16.0); Hypochromasia Slight; Luc # (Auto) 0.15; Luc % (Auto) 2; Lymphocytes # (A) 1.1 k/uL (1.0-4.8); Lymphocytes % (A) 11 %; MCH 30.2 pg (25.0-35.0); MCHC 33.4 g/dL (31.0-37.0); MCV 90.5 fL (80.0-100.0); Mean Platelet Volume 7.7; Monocytes # (A) 0.7 k/uL (0-1.0); Monocytes % (A) 8 %; Neutrophils % (A) 74 %; RBC 4.52 m/uL (3.80-5.40); RDW 14.7 % (11.5-15.5); WBC 9.4 k/uL (3.8-10.6); WBC (Perox) 10.02
[2017-07-23 07:34] LABS: Anion Gap 6 mmol/L; Blood Urea Nitrogen 13 mg/dL (7-17); Calcium 9.2 mg/dL (8.4-10.2); Carbon Dioxide 27 mmol/L (22-30); Chloride 110 mmol/L (98-107); Glucose 104 mg/dL (74-99); Non-African American GFR(MDRD) >60 (>60 ml/min/1.73 sqM); Potassium 4.1 mmol/L (3.5-5.1); Sodium 143 mmol/L (137-145)
[2017-07-23] MEDS: INSULIN LISPRO (humaLOG) 300 UNIT/3 ML VIAL SQ SCH ×4 (08:00→22:04)
[2017-07-23] MEDS: ARTIFICIAL TEARS-HYPROMELLOSE DROPS 15 ML BTL BOTH EYES SCH ×2 (08:39→20:37)
[2017-07-23] MEDS: ATENOLOL 25 MG TAB PO SCH (08:40)
[2017-07-23] MEDS: FUROSEMIDE 20 MG TAB PO SCH (08:40)
[2017-07-23] MEDS: METOCLOPRAMIDE 10 MG TAB PO SCH ×3 (08:40→22:04)
[2017-07-23] MEDS: ALLOPURINOL 100 MG TAB PO SCH (08:41)
[2017-07-23] MEDS: NYSTATIN 100,000 UNIT/GM OINT 30 GM TUBE TOPICAL SCH ×2 (08:41→20:37)
[2017-07-23] MEDS: ASPIRIN 81 MG CHEW PO SCH (08:41)
[2017-07-23] MEDS: MEMANTINE 5 MG TAB PO SCH (08:42)
[2017-07-23] MEDS: ACETAMINOPHEN TAB 325 MG TAB PO SCH ×2 (08:44→20:35)
[2017-07-23] MEDS: ENOXAPARIN 40 MG/0.4 ML SYRINGE SQ SCH (09:00)
[2017-07-23] MEDS: PANTOPRAZOLE 40 MG/10 ML VIAL IVP SCH (09:00)
--- NOTE | 2017-07-23 09:36 | P.PN ---
Subjective Principal diagnosis: Abdominal pain The patient is seen on rounds. She has not had a bowel movement yet. No complaints of abdominal pain to the nurses. She does admit to tenderness when palpated. Nausea or vomiting. Tolerating a diet. No fevers or chills. She wants to get up and walk. Objective - Vital Signs Vital signs: Vital Signs Temp 97.0 F L 07/23/17 07:00 Pulse 64 07/23/17 08:00 Resp 16 07/23/17 08:00 BP 154/68 07/23/17 07:00 Pulse Ox 97 07/23/17 07:00 Intake & Output 07/22/17 07/23/17 07/23/17 18:59 06:59 18:59 Intake Total 330 Balance 330 Weight 81.64 kg 81.64 kg Intake: Intake, IV Titration 130 Amount Sodium Chloride 0.9% 1, 130 000 ml @ 100 mls/hr IV . Q10H ONE Rx#:[id number] Oral 200 Other: # Voids 4 4 - Constitutional General appearance: Present: cooperative, no acute distress - Respiratory Respiratory: bilateral: CTA - Cardiovascular Rhythm: regular - Gastrointestinal General gastrointestinal: Present: normal bowel sounds, soft, tenderness (Right lower quadrant, no rebound or guarding). Absent: distended - Labs CBC & Chem 7: 07/23/17 06:49 07/23/17 06:49 Labs: Abnormal Lab Results - Last 24 Hours (Table) 07/22/17 07/22/17 07/22/17 Range/Units 10:58 10:58 10:58 WBC 11.0 H (3.8-10.6) k/uL Plt Count 116 L (150-450) k/uL Neutrophils # 8.8 H (1.3-7.7) k/uL Chloride (98-107) mmol/L Glucose 229 H (74-99) mg/dL POC Glucose (mg/dL) (75-99) mg/dL Total Creatine Kinase <20 L (30-135) U/L Amylase <30 L (30-110) U/L Urine Appearance (Clear) Ur Leukocyte Esterase (Negative) Urine WBC (0-5) /hpf Urine Bacteria (None) /hpf Urine Mucus (None) /hpf 07/22/17 07/22/17 07/22/17 Range/Units 12:07 16:30 22:05 WBC (3.8-10.6) k/uL Plt Count (150-450) k/uL Neutrophils # (1.3-7.7) k/uL Chloride (98-107) mmol/L Glucose (74-99) mg/dL POC Glucose (mg/dL) 144 H 233 H (75-99) mg/dL Total Creatine Kinase (30-135) U/L Amylase (30-110) U/L Urine Appearance Cloudy H (Clear) Ur Leukocyte Esterase Large H (Negative) Urine WBC 68 H (0-5) /hpf Urine Bacteria Many H (None) /hpf Urine Mucus Rare H (None) /hpf 07/23/17 07/23/17 Range/Units 06:49 06:49 WBC (3.8-10.6) k/uL Plt Count 110 L (150-450) k/uL Neutrophils # (1.3-7.7) k/uL Chloride 110 H (98-107) mmol/L Glucose 104 H (74-99) mg/dL POC Glucose (mg/dL) (75-99) mg/dL Total Creatine Kinase (30-135) U/L Amylase (30-110) U/L Urine Appearance (Clear) Ur Leukocyte Esterase (Negative) Urine WBC (0-5) /hpf Urine Bacteria (None) /hpf Urine Mucus (None) /hpf Microbiology - Last 24 Hours (Table) 07/22/17 12:07 Urine Culture - Preliminary Urine,Clean Catch Assessment and Plan (1) Change in bowel habits Status: Acute (2) Abdominal pain Status: Acute (3) UTI (urinary tract infection) Status: Acute Plan: The patient's white count has normalized. There is no fevers. She is watershed tender in the right lower quadrant. We will recheck her later today. Give another half bottle of magnesium citrate. Further recommendations to follow.
[2017-07-23] MEDS ORDERED: MAGNESIUM CITRATE 296 ML BOTTLE PO ONE (09:45)
[2017-07-23] MEDS: MULTIVITAMINS, THERA 1 EACH TAB PO SCH (12:35)
[2017-07-23] MEDS: ISOSORBIDE MONONITRATE ER 60 MG TAB.ER.24H PO SCH (12:35)
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
--- NOTE | 2017-07-23 16:25 | P.PN ---
Progress Note - Text The patient did have a bowel movement. Continues to have pain in the right lower quadrant. Today according to her daughter. No nausea or vomiting. Tolerating a diet. Abdomen: Soft, positive bowel sounds, right lower quadrant tenderness without rebound. Assessment: Abdominal pain Plan: currently nonsurgical. We'll evaluate her in the morning. If she has fever or elevated white count I may repeat the computed tomography scan.
[2017-07-23 16:31] LABS: Glucose,Whole Blood 185 mg/dL (75-99)
[2017-07-23] MEDS: SENNOSIDES-DOCUSATE SODIUM 1 EACH TAB PO SCH (16:42)
[2017-07-23] MEDS: DICYCLOMINE 10 MG CAP PO SCH ×2 (16:46→20:36)
[2017-07-23] MEDS: INSULIN DETEMIR 100 UNIT/ML 10 ML VIAL SQ SCH (18:00)
[2017-07-23] MEDS: OXYBUTYNIN XL 5 MG TAB.ER.24 PO SCH (20:36)
[2017-07-23] MEDS: ATORVASTATIN 10 MG TAB PO SCH (20:37)
[2017-07-23] MEDS: PARoxetine 10 MG TAB PO SCH (20:37)
[2017-07-23 21:39] LABS: Glucose,Whole Blood 225 mg/dL (75-99)
[2017-07-24] MEDS: DICLOFENAC SODIUM GEL 100 GM TUBE TOPICAL SCH ×5 (01:30→20:55)
[2017-07-24 07:34] LABS: HCT 39.8 % (34.0-46.0); HGB 12.7 gm/dL (11.4-16.0); Hypochromasia Slight; MCH 30.2 pg (25.0-35.0); MCV 94.4 fL (80.0-100.0); RBC 4.22 m/uL (3.80-5.40); RDW 15.3 % (11.5-15.5); WBC 8.2 k/uL (3.8-10.6)
[2017-07-24 07:45] LABS: Anion Gap 6 mmol/L; Blood Urea Nitrogen 22 mg/dL (7-17); Calcium 8.9 mg/dL (8.4-10.2); Carbon Dioxide 23 mmol/L (22-30); Chloride 112 mmol/L (98-107); Glucose 128 mg/dL (74-99); Non-African American GFR(MDRD) 58 (>60 ml/min/1.73 sqM); Sodium 141 mmol/L (137-145)
[2017-07-24] MEDS: ACETAMINOPHEN TAB 325 MG TAB PO SCH ×2 (07:47→20:56)
[2017-07-24 07:52] LABS: Potassium 4.3 mmol/L (3.5-5.1)
[2017-07-24] MEDS: METOCLOPRAMIDE 10 MG TAB PO SCH ×3 (07:54→23:20)
[2017-07-24] MEDS: ALLOPURINOL 100 MG TAB PO SCH (07:54)
[2017-07-24] MEDS: ASPIRIN 81 MG CHEW PO SCH (07:55)
[2017-07-24] MEDS: FUROSEMIDE 20 MG TAB PO SCH (07:55)
[2017-07-24] MEDS: POTASSIUM CHLORIDE ER 10 MEQ TAB.ER.PRT PO SCH (07:55)
[2017-07-24] MEDS: ATENOLOL 25 MG TAB PO SCH (07:55)
[2017-07-24] MEDS: ARTIFICIAL TEARS-HYPROMELLOSE DROPS 15 ML BTL BOTH EYES SCH ×2 (07:55→20:57)
[2017-07-24] MEDS: NYSTATIN 100,000 UNIT/GM OINT 30 GM TUBE TOPICAL SCH ×3 (07:56→20:58)
[2017-07-24] MEDS: DICYCLOMINE 10 MG CAP PO SCH ×2 (07:57→14:38)
[2017-07-24] MEDS: ENOXAPARIN 40 MG/0.4 ML SYRINGE SQ SCH (07:58)
[2017-07-24] MEDS: PANTOPRAZOLE 40 MG/10 ML VIAL IVP SCH (07:58)
[2017-07-24] MEDS: POLYETHYLENE GLYCOL 3350 17 GM POWD.PACK PO SCH (07:59)
[2017-07-24] MEDS: INSULIN LISPRO (humaLOG) 300 UNIT/3 ML VIAL SQ SCH ×4 (08:37→20:59)
--- NOTE | 2017-07-24 09:54 | CT ---
EXAMINATION TYPE: CT abdomen pelvis wo con DATE OF EXAM: 07/24/2017 COMPARISON: 07/22/2017 HISTORY: Abdominal pain CT DLP: 624.6 mGycm Examination of the solid and hollow viscera is limited given the lack of contrast. FINDINGS: LUNG BASES: No evidence for nodule. Mild basilar subpleural fibrosis. Cardiomegaly. Coronary artery c alcifications. LIVER/GB: The gallbladder is unremarkable. No space-occupying hepatic lesion. PANCREAS: No pancreatic mass identified. No inflammatory process seen. SPLEEN: No evidence for splenomegaly. No intrasplenic lesions seen. ADRENALS: No adrenal nodules identified. No evidence for thickening. KIDNEYS: Bilateral nephrolithiasis again noted. Calculus is noted within the left renal pelvis withou t evidence for obstruction although the left renal pelvis demonstrates wall thickening and this may r eflect underlying infection. No distinct renal mass. BOWEL: Persistent inflammatory process right lower quadrant. The appendix is poorly visualized. Findi ngs could reflect appendicitis versus a diverticulitis. Overall the appearance is slightly improved. No evidence for abscess. No evidence for bowel obstruction. Lymph nodes: No evidence for adenopathy greater than 1 cm. Abdominal aorta: Atheromatous changes seen. Mild aneurysmal dilatation of the abdominal aorta at the level of the aortic hiatus. Genital organs: No significant abnormality. Other: Degenerative changes lumbar spine. IMPRESSION: 1. PERSISTENT BUT IMPROVING INFLAMMATORY PROCESS ADJACENT TO THE CECUM WITHIN THE RIGHT LOWER QUADRAN T. NOTED THE APPENDIX IS NOT CLEARLY VISUALIZED. APPENDICITIS IS NOT ENTIRELY EXCLUDED. NO EVIDENC E OF PERFORATION OR ABSCESS. 2. NONOBSTRUCTING NEPHROLITHIASIS. UROTHELIAL THICKENING LEFT RENAL PELVIS COULD REFLECT UNDERLYING I NFECTION.
[2017-07-24] MEDS: DEXTROSE 5%-0.45% NACL 1,000 ML IV SCH ×2 (10:04→23:25)
[2017-07-24] MEDS: SENNOSIDES-DOCUSATE SODIUM 1 EACH TAB PO SCH (10:07)
[2017-07-24 12:17] LABS: Glucose,Whole Blood 130 mg/dL (75-99)
--- NOTE | 2017-07-24 13:06 | P.PN ---
Subjective Principal diagnosis: Abdominal pain The patient was complaining of more abdominal pain this morning so I ordered a repeat CT scan. This showed improvment of the inflammatory changes in the right lower quadrant. The appendix was not visualized. No abscess. The patient's eating well. She's had several bowel movements. No nausea no vomiting. Pain with movement or cough. Objective - Vital Signs Vital signs: Vital Signs Temp 98.5 F 07/24/17 07:00 Pulse 65 07/24/17 07:00 Resp 16 07/24/17 07:00 BP 139/64 07/24/17 07:00 Pulse Ox 93 L 07/24/17 07:00 Intake & Output 07/23/17 07/24/17 07/24/17 18:59 06:59 18:59 Intake Total 200 590 Balance 200 590 Weight 81.64 kg Intake: Oral 200 590 Other: # Voids 1 2 # Bowel Movements 1 1 - Constitutional General appearance: Present: cooperative, no acute distress - Gastrointestinal General gastrointestinal: Present: normal bowel sounds, soft, tenderness (Right lower quadrant was some mild voluntary guarding) - Labs CBC & Chem 7: 07/24/17 07:17 07/24/17 07:17 Labs: Abnormal Lab Results - Last 24 Hours (Table) 07/23/17 07/23/17 07/24/17 Range/Units 16:30 21:38 07:17 Plt Count 123 L (150-450) k/uL Chloride (98-107) mmol/L BUN (7-17) mg/dL Glucose (74-99) mg/dL POC Glucose (mg/dL) 185 H 225 H (75-99) mg/dL 07/24/17 07/24/17 Range/Units 07:17 12:15 Plt Count (150-450) k/uL Chloride 112 H (98-107) mmol/L BUN 22 H (7-17) mg/dL Glucose 128 H (74-99) mg/dL POC Glucose (mg/dL) 130 H (75-99) mg/dL Microbiology - Last 24 Hours (Table) 07/22/17 12:07 Urine Culture - Preliminary Urine,Clean Catch Gram Neg Bacilli - Imaging and Cardiology CT scan - abdomen: report reviewed, image reviewed Assessment and Plan (1) Change in bowel habits Status: Acute (2) Abdominal pain Status: Acute (3) UTI (urinary tract infection) Status: Acute Plan: The patient does have a urinary tract infection. She can be treated with antibiotics. Control pain. Agree with addition of MiraLAX. She can have outpatient colonoscopy in a month.
[2017-07-24] MEDS: ISOSORBIDE MONONITRATE ER 60 MG TAB.ER.24H PO SCH (13:18)
[2017-07-24] MEDS: MULTIVITAMINS, THERA 1 EACH TAB PO SCH (13:18)
[2017-07-24] MEDS: MORPHINE SULFATE 4 MG/ML SYRINGE IVP PRN (14:41)
[2017-07-24 16:51] LABS: Glucose,Whole Blood 231 mg/dL (75-99)
[2017-07-24] MEDS: INSULIN DETEMIR 100 UNIT/ML 10 ML VIAL SQ SCH (17:41)
--- NOTE | 2017-07-24 18:30 | P.PN ---
<Zoë Lofton - Last Filed: 07/24/17 18:31> Progress Note - Text DATE OF SERVICE: 07/24/2017 PRESENTING COMPLAINT: Tired/UTI/Abdominal pain INTERVAL HISTORY: 81-year-old female who was tired and lethargic found to have a UTI and was also having abdominal pain intermittently with an erratic bowel pattern. 07/24/2017: Patient seen in follow-up today continues to complain of right-sided abdominal pain, painful when she breathes or coughs. Surgery saw the patient this morning continuing with a nonsurgical approach. Continues on IV antibiotics for UTI. Tolerating her diet appetite is really good eating 75% of her meals. Patient is sitting up in the chair at the bedside. REVIEW OF SYSTEMS: Done for constitutional ,cardiovascular, GI, pulmonary with relevant findings as above. CURRENT MEDICATIONS Tylenol, Zyloprim, aspirin, Tenormin, Lipitor, ceftriaxone, diclofenac gel, Bentyl, Lasix, Levemir, Humalog, Reglan, Paxil, MiraLAX PHYSICAL EXAM VITAL SIGNS: Temperature 98.5, pulse 65, respiratory rate 16, blood pressure 139/64, oxygen saturation 93% on room air. GENERAL APPEARANCE: Sitting in the chair at the bedside, not in distress. EYES: Pupils equal. Conjunctiva normal. NECK: JVD not raised. Mass not palpable. RESPIRATORY: Respiratory effort normal. Lungs diminished to auscultation. CARDIOVASCULAR: First and second sounds normal. No edema. ABDOMEN: Soft. Liver and spleen not palpable. Right upper and lower quadrant tenderness, No mass palpable. PSYCHIATRY: Alert and oriented x3. Mood and affect normal. Dermatologic: Bilateral discoloration of the shins INVESTIGATIONS: White blood cell count 8.2, platelet count 123, sodium 141, BUN 22 Accu-Cheks noted. Computed tomography scan: Persistent but improving inflammatory process in the right lower quadrant no evidence of perforation or abscess. ASSESSMENT: -Acute UTI leading to metabolic encephalopathy present on admission in a patient with recurrent UTIs -Possibly low-grade colitis with long history of abdominal pain on and off intermittent diarrhea and constipation -Chronic constipation patient noted to have a lot of stool in the computed tomography scan -Diabetes mellitus type 2 on oral hypoglycemic -Essential hypertension -Hyperlipidemia -Alzheimer's dementia late onset type -Coronary artery disease or prior history of stent -chronic congestive heart failure from diastolic dysfunction EF 50% secondary to CAD -Obstructive sleep apnea does not use CPAP machine -Anxiety depression not otherwise specified -Primary osteoarthritis multiple joints, especially the knees -Kidney stones asymptomatic -Chronic sleepiness and drowsiness according to the daughter this could be developing be from patient being on Namenda/chronic encephalopathy. -Chronic gait dysfunction uses a walker PLAN: Continue IV antibiotics and adjusted Bentyl. Surgery continuing to follow with a nonsurgical approach and may have colonoscopy in the outpatient setting in a month. Plan of care discussed with the patient and the daughter at the bedside. They all are in Agreement with current plan. We will continue to follow closely. BANQUET MANAGER statement: Patient was seen and examined by nurse practitioner Zoë Lofton and all elements of the case discussed with attending Dr. Salas <Aquilino Salas - Last Filed: 07/25/17 12:45> Progress Note - Text Attending note. Date of service-07/24/2017 This patient was seen and examined by me . Discussed the patient with my nurse practitioner Ms. Lofton. Admitted with UTI and possible low-grade colitis. Patient tolerating a diet well. Having bowel movements. Much more awake. As discussed the surgery patient oriented antibiotics. On examination: Abdomen-tender with no guarding or rigidity, soft. Patient otherwise very comfortable sitting up Investigations: White count 8.2 Assessment and plan: Possible acute colitis right-sided with good clinical response patient doing well no fever and no white count tolerating a diet having a bowel movement. Patient relates long-term assistance. . Spoke to Dr. Carmona from surgery. Total time spent was 40 minutes with over 25 minutes of discussion including Dr. Carmona.
[2017-07-24 20:52] LABS: Glucose,Whole Blood 228 mg/dL (75-99)
[2017-07-24] MEDS: ATORVASTATIN 10 MG TAB PO SCH (20:57)
[2017-07-24] MEDS: OXYBUTYNIN XL 5 MG TAB.ER.24 PO SCH (20:58)
[2017-07-24] MEDS: PARoxetine 10 MG TAB PO SCH (20:58)
[2017-07-24] MEDS: DICYCLOMINE 20 MG TAB PO SCH (20:58)
[2017-07-25] MEDS: DICLOFENAC SODIUM GEL 100 GM TUBE TOPICAL SCH ×4 (01:10→19:56)
[2017-07-25] MEDS: MORPHINE SULFATE 4 MG/ML SYRINGE IVP PRN (05:49)
[2017-07-25 07:38] LABS: Basophils % (A) 0 %; CHCM 32.4; Eosinophils # (A) 0.5 k/uL (0-0.7); Eosinophils % (A) 5 %; HCT 40.6 % (34.0-46.0); HDW 3.17; Hypochromasia Slight; Luc % (Auto) 1; Lymphocytes % (A) 11 %; MCH 29.9 pg (25.0-35.0); MCHC 32.1 g/dL (31.0-37.0); MCV 93.2 fL (80.0-100.0); Mean Platelet Volume 8.1; Monocytes # (A) 0.6 k/uL (0-1.0); Monocytes % (A) 7 %; Neutrophils # (A) 6.2 k/uL (1.3-7.7); Neutrophils % (A) 74 %; RBC 4.36 m/uL (3.80-5.40); RDW 15.1 % (11.5-15.5); WBC 8.3 k/uL (3.8-10.6); WBC (Perox) 8.09
[2017-07-25 07:46] LABS: Anion Gap 8 mmol/L; Blood Urea Nitrogen 15 mg/dL (7-17); Calcium 8.9 mg/dL (8.4-10.2); Carbon Dioxide 25 mmol/L (22-30); Chloride 110 mmol/L (98-107); Glucose 137 mg/dL (74-99); Non-African American GFR(MDRD) >60 (>60 ml/min/1.73 sqM); Potassium 4.2 mmol/L (3.5-5.1); Sodium 143 mmol/L (137-145)
[2017-07-25] MEDS: ARTIFICIAL TEARS-HYPROMELLOSE DROPS 15 ML BTL BOTH EYES SCH ×2 (08:20→19:58)
[2017-07-25] MEDS: ISOSORBIDE MONONITRATE ER 60 MG TAB.ER.24H PO SCH (08:21)
[2017-07-25] MEDS: ALLOPURINOL 100 MG TAB PO SCH (08:21)
[2017-07-25] MEDS: DICYCLOMINE 20 MG TAB PO SCH ×3 (08:21→23:02)
[2017-07-25] MEDS: METOCLOPRAMIDE 10 MG TAB PO SCH ×3 (08:21→23:02)
[2017-07-25] MEDS: ENOXAPARIN 40 MG/0.4 ML SYRINGE SQ SCH (08:22)
[2017-07-25] MEDS: ATENOLOL 25 MG TAB PO SCH (08:22)
[2017-07-25] MEDS: ASPIRIN 81 MG CHEW PO SCH (08:22)
[2017-07-25] MEDS: FUROSEMIDE 20 MG TAB PO SCH (08:23)
[2017-07-25] MEDS: NYSTATIN 100,000 UNIT/GM OINT 30 GM TUBE TOPICAL SCH ×2 (08:23→19:59)
[2017-07-25] MEDS: PANTOPRAZOLE 40 MG/10 ML VIAL IVP SCH (08:25)
[2017-07-25] MEDS: ACETAMINOPHEN TAB 325 MG TAB PO SCH ×2 (08:25→19:58)
[2017-07-25] MEDS: SENNOSIDES-DOCUSATE SODIUM 1 EACH TAB PO SCH (08:35)
[2017-07-25] MEDS: INSULIN LISPRO (humaLOG) 300 UNIT/3 ML VIAL SQ SCH ×4 (09:50→20:42)
[2017-07-25] MEDS: MULTIVITAMINS, THERA 1 EACH TAB PO SCH (09:50)
--- NOTE | 2017-07-25 12:51 | P.PN ---
Progress Note - Text The patient continues to complain of some pain. She's tolerating a diet. She had a bowel movement. Physical exam: She's been afebrile, positive bowel sounds, minimal right upper quadrant tenderness which subjectively appears improved. Lab: She does have a UTI with E. coli present. It's resistant to multiple antibiotics. Assessment: Abdominal pain, UTI Recommendation: She is nonsurgical. Antibiotics based on urine culture and sensitivity. Outpatient colonoscopy.
[2017-07-25 13:21] LABS: Glucose,Whole Blood 149 mg/dL (75-99)
[2017-07-25] MEDS: DEXTROSE 5%-0.45% NACL 1,000 ML IV SCH (13:34)
--- NOTE | 2017-07-25 14:25 | P.PN ---
<Zoë Lofton - Last Filed: 07/25/17 14:01> Progress Note - Text DATE OF SERVICE: 07/25/2017 PRESENTING COMPLAINT: Tired/UTI/Abdominal pain INTERVAL HISTORY: 81-year-old female who was tired and lethargic found to have a UTI and was also having abdominal pain intermittently with an erratic bowel pattern. 07/25/2017: Patient seen today sitting up in the bed, continues to complain of right-sided abdominal pain particular painful when she agrees her coughs. Continue with a nonsurgical approach, encourage splinting when coughing or deep breathing to support. Bentyl adjusted. Tolerating her diet, eating about 75% -100% of her meals. Moving her bowels. Patient ambulatory with minimal assist, concerns from the family regarding returning to nursing care facility. Case management to come and evaluate and provide options. 07/24/2017: Patient seen in follow-up today continues to complain of right-sided abdominal pain, painful when she breathes or coughs. Surgery saw the patient this morning continuing with a nonsurgical approach. Continues on IV antibiotics for UTI. Tolerating her diet appetite is really good eating 75% of her meals. Patient is sitting up in the chair at the bedside. REVIEW OF SYSTEMS: Done for constitutional ,cardiovascular, GI, pulmonary with relevant findings as above. CURRENT MEDICATIONS Tylenol, Zyloprim, aspirin, Tenormin, Lipitor, ceftriaxone, diclofenac gel, Bentyl, Lasix, Levemir, Humalog, Reglan, Paxil, MiraLAX PHYSICAL EXAM VITAL SIGNS: Temperature 97.1, pulse 62, respiratory rate 16, blood pressure 132/74, oxygen saturation 96% on room air GENERAL APPEARANCE: Sitting in the chair at the bedside, not in distress. EYES: Pupils equal. Conjunctiva normal. NECK: JVD not raised. Mass not palpable. RESPIRATORY: Respiratory effort normal. Lungs diminished to auscultation. CARDIOVASCULAR: First and second sounds normal. No edema. ABDOMEN: Soft. Liver and spleen not palpable. Right upper and lower quadrant tenderness, No mass palpable. PSYCHIATRY: Alert and oriented x3. Mood and affect normal. DERMATOLOGIC: Bilateral discoloration of the shins INVESTIGATIONS: CBC unremarkable, BMP unremarkable Accu-Cheks noted. ASSESSMENT: -Acute UTI leading to metabolic encephalopathy present on admission in a patient with recurrent UTIs -Possibly acute colitis with good clinical response -Chronic constipation patient noted to have a lot of stool in the computed tomography scan -Diabetes mellitus type 2 on oral hypoglycemic -Essential hypertension -Hyperlipidemia -Alzheimer's dementia late onset type -Coronary artery disease or prior history of stent -chronic congestive heart failure from diastolic dysfunction EF 50% secondary to CAD -Obstructive sleep apnea does not use CPAP machine -Anxiety depression not otherwise specified -Primary osteoarthritis multiple joints, especially the knees -Kidney stones asymptomatic -Chronic sleepiness and drowsiness according to the daughter this could be developing be from patient being on Namenda/chronic encephalopathy. -Chronic gait dysfunction uses a walker PLAN: Continue IV antibiotics and adjusted Bentyl. Surgery continuing to follow with a nonsurgical approach and may have colonoscopy in the outpatient setting in a month. Plan of care discussed with the daughter, said son was coming to see patient, new concerns for abdominal pain, GI consulted. Case management to see daughter and son at bedside to provide information about discharge options. They all are in Agreement with current plan. We will continue to follow closely. HORSE RANCHER statement: Patient was seen and examined by nurse practitioner Zoë Lofton and all elements of the case discussed with attending Dr. Salas <Aquilino Salas - Last Filed: 07/25/17 16:28> Progress Note - Text Attending note. Date of service-07/25/2017 This patient was seen and examined by me . Discussed the patient with my nurse practitioner Ms. Lofton. Patient seen to be very comfortable in bed. She does state that when she coughed she hurts in the belly. To be noted again the patient had his intermittently chronic for a long time. Though given the computed tomography scan findings and may be an element of colitis hence the antibiotics and to continue in addition to the UTI. Patient eating well. On examination: Abdomen-soft, tenderness present but no guarding or rigidity. Patient very comfortable at rest otherwise Investigations: White count normal Assessment and plan: Possible acute colitis that responded to IV antibiotics. Did speak to the daughter at length to respond. We'll get a GI opinion.
[2017-07-25 16:21] LABS: Glucose,Whole Blood 173 mg/dL (75-99)
[2017-07-25] MEDS: INSULIN DETEMIR 100 UNIT/ML 10 ML VIAL SQ SCH (17:46)
[2017-07-25] MEDS: ATORVASTATIN 10 MG TAB PO SCH (19:58)
[2017-07-25] MEDS: OXYBUTYNIN XL 5 MG TAB.ER.24 PO SCH (19:59)
[2017-07-25] MEDS: PARoxetine 10 MG TAB PO SCH (19:59)
[2017-07-25 20:24] LABS: Glucose,Whole Blood 241 mg/dL (75-99)
[2017-07-25] MEDS: Acetaminophen-Codeine 300-30mg TAB PO PRN (23:01)
[2017-07-26] MEDS: DEXTROSE 5%-0.45% NACL 1,000 ML IV SCH ×2 (01:00→15:49)
[2017-07-26] MEDS: DICLOFENAC SODIUM GEL 100 GM TUBE TOPICAL SCH ×4 (06:11→21:39)
[2017-07-26] MEDS: Acetaminophen-Codeine 300-30mg TAB PO PRN ×2 (07:22→17:44)
[2017-07-26] MEDS: FUROSEMIDE 20 MG TAB PO SCH (07:29)
[2017-07-26] MEDS: ATENOLOL 25 MG TAB PO SCH (07:29)
[2017-07-26] MEDS: ISOSORBIDE MONONITRATE ER 60 MG TAB.ER.24H PO SCH (07:29)
[2017-07-26] MEDS: ARTIFICIAL TEARS-HYPROMELLOSE DROPS 15 ML BTL BOTH EYES SCH ×2 (07:30→21:41)
[2017-07-26] MEDS: SENNOSIDES-DOCUSATE SODIUM 1 EACH TAB PO SCH (07:32)
[2017-07-26] MEDS: NYSTATIN 100,000 UNIT/GM OINT 30 GM TUBE TOPICAL SCH ×2 (07:34→21:41)
[2017-07-26 07:37] LABS: Glucose,Whole Blood 139 mg/dL (75-99)
[2017-07-26] MEDS: ACETAMINOPHEN TAB 325 MG TAB PO SCH ×2 (08:25→21:40)
[2017-07-26] MEDS: METOCLOPRAMIDE 10 MG TAB PO SCH ×3 (08:25→22:00)
[2017-07-26] MEDS: PANTOPRAZOLE 40 MG/10 ML VIAL IVP SCH (08:25)
[2017-07-26] MEDS: ENOXAPARIN 40 MG/0.4 ML SYRINGE SQ SCH (08:25)
[2017-07-26] MEDS: ALLOPURINOL 100 MG TAB PO SCH (08:26)
[2017-07-26] MEDS: ASPIRIN 81 MG CHEW PO SCH (08:26)
[2017-07-26] MEDS: DICYCLOMINE 20 MG TAB PO SCH ×3 (08:26→21:42)
[2017-07-26] MEDS: MULTIVITAMINS, THERA 1 EACH TAB PO SCH (08:27)
[2017-07-26] MEDS: INSULIN LISPRO (humaLOG) 300 UNIT/3 ML VIAL SQ SCH ×4 (08:28→21:42)
[2017-07-26 09:58] LABS: Anion Gap 10 mmol/L; Blood Urea Nitrogen 15 mg/dL (7-17); Calcium 9.2 mg/dL (8.4-10.2); Carbon Dioxide 21 mmol/L (22-30); Chloride 109 mmol/L (98-107); Glucose 140 mg/dL (74-99); Non-African American GFR(MDRD) >60 (>60 ml/min/1.73 sqM); Potassium 4.9 mmol/L (3.5-5.1); Sodium 140 mmol/L (137-145)
[2017-07-26] MEDS ORDERED: BISACODYL 10 MG SUPP RECTAL STA (10:18)
--- NOTE | 2017-07-26 10:41 | XR ---
EXAMINATION TYPE: XR chest 1V portable DATE OF EXAM: 07/26/2017 COMPARISON: 02/09/2017 HISTORY: Cough TECHNIQUE: Single frontal view of the chest is obtained. FINDINGS: Subsegmental changes at the right lung base. Chronic rib deformities and severe arthropath y of the AC joints and left shoulder. No pneumothorax. Heart is enlarged. Hypertrophic change of the spine. Atherosclerotic change aorta. IMPRESSION: 1. Elevated right hemidiaphragm with subsegmental atelectasis favored over infiltrate correlate clini dedrick
[2017-07-26 11:40] LABS: Glucose,Whole Blood 267 mg/dL (75-99)
--- NOTE | 2017-07-26 11:40 | P.PN ---
Subjective Principal diagnosis: Abdominal pain The patient is eating normally. She is passing flatus. No bowel movement since she had the bottle of magnesium citrate. That day therefore bowel movements. She is still having some right-sided abdominal pain. Objective - Vital Signs Vital signs: Vital Signs Temp 97.4 F L 07/26/17 08:00 Pulse 60 07/26/17 09:00 Resp 17 07/26/17 08:00 BP 133/70 07/26/17 09:00 Pulse Ox 95 07/26/17 08:00 Intake & Output 07/25/17 07/26/17 07/26/17 18:59 06:59 18:59 Intake Total 1710 Output Total 350 Balance 1710 -350 Intake: IV 750 Dextrose 5%-0.45% NaCl 1, 750 000 ml @ 75 mls/hr IV . [id number] DANIEL Rx#:[id number] Oral 960 Output: Urine 350 Other: Voiding Method Toilet Diaper # Voids 2 - Constitutional General appearance: Present: cooperative, no acute distress - Gastrointestinal General gastrointestinal: Present: normal bowel sounds, soft, tenderness (Right lower quadrant right upper quadrant) - Labs CBC & Chem 7: 07/25/17 07:15 07/26/17 06:55 Labs: Abnormal Lab Results - Last 24 Hours (Table) 07/25/17 07/25/17 07/25/17 Range/Units 13:09 16:16 20:23 Chloride (98-107) mmol/L Carbon Dioxide (22-30) mmol/L Glucose (74-99) mg/dL POC Glucose (mg/dL) 149 H 173 H 241 H (75-99) mg/dL 07/26/17 07/26/17 Range/Units 06:55 07:30 Chloride 109 H (98-107) mmol/L Carbon Dioxide 21 L (22-30) mmol/L Glucose 140 H (74-99) mg/dL POC Glucose (mg/dL) 139 H (75-99) mg/dL Microbiology - Last 24 Hours (Table) 07/22/17 12:07 Urine Culture - Preliminary Urine,Clean Catch Escherichia coli Escherichia coli#2 Assessment and Plan (1) Change in bowel habits Status: Acute (2) Abdominal pain Status: Acute (3) UTI (urinary tract infection) Status: Acute Plan: The patient's temperature and white count are normal. The computed tomography scan showed improvement of the inflammatory change. She is on antibiotics for the urinary tract infection. Recommend outpatient colonoscopy in 4-6 weeks. This was discussed with patient and family.
[2017-07-26 16:23] LABS: Glucose,Whole Blood 146 mg/dL (75-99)
--- NOTE | 2017-07-26 16:27 | CONS ---
REASON FOR CONSULTATION: Abdominal pain. HISTORY OF PRESENT ILLNESS: The patient is an 81-year-old pleasant white female admitted to the hospital with right-sided abdominal pain for the last two weeks duration. Apparently she has been having alternating diarrhea and constipation for the last several months duration. She initially had some pain in the right lower quadrant that radiated to the right upper quadrant area on and off for the last two weeks, but has progressively gotten worse and hence, came into the emergency room on July 22. In the emergency room she did have a CT of the abdomen and pelvis done that showed inflammatory changes in the cecal area and possibility of acute appendicitis could not be excluded. Dr. Carmona was consulted and patient was started on broad-spectrum IV antibiotics and was being treated conservatively. The patient continued to have progressively worsening pain over the next two to three days and hence we are consulted for another opinion. Today the patient states the pain is mostly in the right lower quadrant area. It radiates to the right upper quadrant area, very intense, worse with coughing and movement. She denies any diarrhea. In fact bowel movement yesterday that was normal in consistency. Denies any active bleeding. She reports no fever, chills or night sweats. No nausea or vomiting. Her past medical history is significant for hypertension, hyperlipidemia, dementia, coronary artery disease, congestive heart failure, degenerative joint disease, sleep apnea with CPAP. PAST SURGICAL HISTORY: Bilateral cataract surgeries, carpal tunnel surgery, right leg fracture, hysterectomy, cardiac catheterization with stent. Medications at home include: VESIcare, K-Dur, Paxil, multivitamins, Reglan, Imdur, Namenda, Levemir, Lasix, Voltaren, Lipitor, Ecotrin, Zyloprim, and Tylenol. ALLERGIES: NONE. SOCIAL HISTORY: No smoking, no alcohol use. FAMILY HISTORY: Unremarkable. REVIEW OF SYSTEMS: CARDIOPULMONARY: She denies any chest pain or shortness of breath. GENITOURINARY: No dysuria or hematuria. MUSCULOSKELETAL: Unremarkable other than mild chronic back pain. NEUROLOGY: Unremarkable other than mild dementia. PSYCHIATRIC: Unremarkable. ENT/VISION: Unremarkable. HEMATOLOGY: Unremarkable. CONSTITUTIONAL: No recent weight loss. ENDOCRINE: Unremarkable. On physical examination, she appears comfortable in no apparent distress. Vital signs are stable. Blood pressure is 138/63, pulse rate is 56, temperature 97.9. HEENT: Unremarkable. Conjunctivae pink. Sclerae clear. Oral cavity, no lesions. NECK: No JVD or lymph node enlargement. CHEST: Clear to auscultation. HEART: Regular rate and rhythm. ABDOMEN: Soft. There was tenderness in the right lower quadrant area, right upper quadrant area as well as in the periumbilical area. No rebound or rigidity. Bowel sounds are positive. She has obese abdomen. EXTREMITIES: No pedal edema. SKIN: No rashes. NEURO: Alert and oriented x3. No focal deficits. Labs done from yesterday: WBC 8.3, hemoglobin 13, and platelets are 118. Basic metabolic panel is within normal limits. Repeat CT scan of the abdomen on 07/24 did show inflammatory changes, persistent inflammatory changes in the right lower quadrant area. Findings suspicious for appendicitis versus acute diverticulitis but the overall appearance has improved from the CT scan done 2 days prior. No evidence of abscess. IMPRESSION: This is a lady who presented to the hospital with right lower quadrant abdominal pain, right-sided abdominal pain for the last two weeks duration, associated with alternating diarrhea and constipation for several months. Her pain was progressively getting worse and initial CT scan at the time of the admission to the hospital on 07/22 showed inflammatory changes in the right lower quadrant area suspicious for diverticulitis versus appendicitis. Patient was seen by Dr. Carmona and started on broad-spectrum antibiotics. However, she continues to have worsening abdominal pain. She had repeat CT scan done 2 days later which was on July 24 which showed improvement in the persistent inflammatory process in the right lower quadrant area. She remains on ceftriaxone day number four with persistent right lower quadrant abdominal pain. RECOMMENDATIONS: I had a lengthy discussion with the patient as well as her family who was at the bedside. At this time I agree with the current approach of management since both the CT scans showed inflammatory changes in the right lower quadrant suspicious for possible diverticulitis. I would continue with broad-spectrum antibiotics for at least another 2 days duration. If she continues to have persistent symptoms, possibly inpatient colonoscopy needs to be considered. At this time we will continue with conservative approach and follow her close during hospital stay. Thank you for this consultation. VINCENT
[2017-07-26] MEDS: INSULIN DETEMIR 100 UNIT/ML 10 ML VIAL SQ SCH (17:40)
--- NOTE | 2017-07-26 18:06 | P.PN ---
Progress Note - Text Attending note. Date of service-07/26/2017 This patient was seen and examined by me . Discussed the patient with my nurse practitioner Ms. Lofton. Tolerating a diet well. Had a bowel movement day before. Sitting comfortably repeated. eating all her meals. On examination: Abdomen-soft, tender, no guarding or rigidity. Patient sitting on a chair comfortable Investigations: Labs noted Assessment and plan: -Possible colitis responding well to antibiotics as per CAT scan. Patient also seems to chronic element. Dr. Mccabe's consult noted. Discussed the Dr. Carmona. No change in plan. Continue with antibiotics..
--- NOTE | 2017-07-26 18:29 | P.PN ---
Progress Note - Text DATE OF SERVICE: 07/26/2017 PRESENTING COMPLAINT: Tired/UTI/Abdominal pain HISTORY OF PRESENT ILLNESS: 81-year-old female who was tired and lethargic found to have a UTI, cultures positive for E. coli, and was also having abdominal pain intermittently with an erratic bowel pattern. INTERVAL HISTORY: 07/26/2017: Patient seen today in follow-up sitting up in bed continues to complain of right -sided abdominal pain particularly painful when she coughs. GI saw the patient today recommends antibiotic therapy for at least another 2 days. May need colonoscopy if pain persists. General surgery does not recommend any new interventions this time. Tolerating her diet eating 100% of her meals, ambulatory with minimal assist, last BM 07/23/2017. 07/25/2017: Patient seen today sitting up in the bed, continues to complain of right-sided abdominal pain particular painful when she agrees her coughs. Continue with a nonsurgical approach, encourage splinting when coughing or deep breathing to support. Bentyl adjusted. Tolerating her diet, eating about 75% -100% of her meals. Moving her bowels. Patient ambulatory with minimal assist, concerns from the family regarding returning to nursing care facility. Case management to come and evaluate and provide options. 07/24/2017: Patient seen in follow-up today continues to complain of right-sided abdominal pain, painful when she breathes or coughs. Surgery saw the patient this morning continuing with a nonsurgical approach. Continues on IV antibiotics for UTI. Tolerating her diet appetite is really good eating 75% of her meals. Patient is sitting up in the chair at the bedside. REVIEW OF SYSTEMS: Done for constitutional ,cardiovascular, GI, pulmonary with relevant findings as above. CURRENT MEDICATIONS Tylenol, Zyloprim, aspirin, Tenormin, Lipitor, ceftriaxone, diclofenac gel, Bentyl, Lasix, Levemir, Humalog, Reglan, Paxil, MiraLAX PHYSICAL EXAM VITAL SIGNS: Temperature 97.1, pulse 62, respiratory rate 16, blood pressure 132/74, oxygen saturation 96% on room air GENERAL APPEARANCE: Sitting in the chair at the bedside, not in distress. EYES: Pupils equal. Conjunctiva normal. NECK: JVD not raised. Mass not palpable. RESPIRATORY: Respiratory effort normal. Lungs diminished to auscultation. CARDIOVASCULAR: First and second sounds normal. No edema. ABDOMEN: Soft. Liver and spleen not palpable. Right upper and lower quadrant tenderness, No mass palpable. PSYCHIATRY: Alert and oriented x3. Mood and affect normal. DERMATOLOGIC: Bilateral discoloration of the shins INVESTIGATIONS: CBC unremarkable, BMP unremarkable Accu-Cheks noted. 07/22/2017 urine culture positive for E. coli. ASSESSMENT: -Acute UTI leading to metabolic encephalopathy present on admission in a patient with recurrent UTIs -Possibly acute colitis with good clinical response -Chronic constipation patient noted to have a lot of stool in the computed tomography scan -Diabetes mellitus type 2 on oral hypoglycemic -Essential hypertension -Hyperlipidemia -Alzheimer's dementia late onset type -Coronary artery disease or prior history of stent -chronic congestive heart failure from diastolic dysfunction EF 50% secondary to CAD -Obstructive sleep apnea does not use CPAP machine -Anxiety depression not otherwise specified -Primary osteoarthritis multiple joints, especially the knees -Kidney stones asymptomatic -Chronic sleepiness and drowsiness according to the daughter this could be developing be from patient being on Namenda/chronic encephalopathy. -Chronic gait dysfunction uses a walker PLAN: Continue IV antibiotics, per both GI and surgery as patient seems to be having good clinical response.. Patient may require colonoscopy prior to discharge if symptoms continue or worsen. Plan of care discussed with the son and the patient and they all are in Agreement with current plan. We will continue to follow closely. Tentative discharge planning for the next 24-48 hours. VICE PRINCIPAL statement: Patient was seen and examined by nurse practitioner Zoë Lofton and all elements of the case discussed with attending Dr. Salas
[2017-07-26] MEDS: ATORVASTATIN 10 MG TAB PO SCH (21:41)
[2017-07-26] MEDS: OXYBUTYNIN XL 5 MG TAB.ER.24 PO SCH (21:41)
[2017-07-26] MEDS: PARoxetine 10 MG TAB PO SCH (21:42)
[2017-07-26 21:47] LABS: Glucose,Whole Blood 167 mg/dL (75-99)
[2017-07-27] MEDS: Acetaminophen-Codeine 300-30mg TAB PO PRN ×2 (04:01→16:03)
[2017-07-27] MEDS: DICLOFENAC SODIUM GEL 100 GM TUBE TOPICAL SCH ×4 (04:02→19:01)
[2017-07-27 07:15] LABS: Glucose,Whole Blood 102 mg/dL (75-99)
[2017-07-27] MEDS: INSULIN LISPRO (humaLOG) 300 UNIT/3 ML VIAL SQ SCH ×4 (07:46→20:29)
[2017-07-27 07:49] LABS: Basophils % (A) 1 %; CH 30.1; CHCM 32.4; Eosinophils # (A) 0.4 k/uL (0-0.7); Eosinophils % (A) 6 %; HCT 40.3 % (34.0-46.0); HDW 3.23; HGB 12.6 gm/dL (11.4-16.0); Hypochromasia Slight; Luc # (Auto) 0.09; Luc % (Auto) 2; Lymphocytes # (A) 0.9 k/uL (1.0-4.8); Lymphocytes % (A) 14 %; MCH 29.3 pg (25.0-35.0); MCHC 31.3 g/dL (31.0-37.0); MCV 93.4 fL (80.0-100.0); Mean Platelet Volume 7.9; Monocytes # (A) 0.4 k/uL (0-1.0); Monocytes % (A) 7 %; Neutrophils # (A) 4.4 k/uL (1.3-7.7); Neutrophils % (A) 71 %; RBC 4.32 m/uL (3.80-5.40); RDW 15.2 % (11.5-15.5); WBC 6.2 k/uL (3.8-10.6); WBC (Perox) 6.54
[2017-07-27 07:55] LABS: Anion Gap 9 mmol/L; Blood Urea Nitrogen 16 mg/dL (7-17); Calcium 9.1 mg/dL (8.4-10.2); Carbon Dioxide 25 mmol/L (22-30); Chloride 108 mmol/L (98-107); Glucose 97 mg/dL (74-99); Non-African American GFR(MDRD) >60 (>60 ml/min/1.73 sqM); Potassium 3.8 mmol/L (3.5-5.1); Sodium 142 mmol/L (137-145)
[2017-07-27] MEDS: ACETAMINOPHEN TAB 325 MG TAB PO SCH ×2 (08:00→19:26)
[2017-07-27] MEDS: ARTIFICIAL TEARS-HYPROMELLOSE DROPS 15 ML BTL BOTH EYES SCH ×2 (08:02→19:27)
[2017-07-27] MEDS: DICYCLOMINE 20 MG TAB PO SCH ×3 (08:03→22:10)
[2017-07-27] MEDS: MULTIVITAMINS, THERA 1 EACH TAB PO SCH (08:03)
[2017-07-27] MEDS: FUROSEMIDE 20 MG TAB PO SCH (08:03)
[2017-07-27] MEDS: ALLOPURINOL 100 MG TAB PO SCH (08:03)
[2017-07-27] MEDS: PANTOPRAZOLE 40 MG/10 ML VIAL IVP SCH (08:03)
[2017-07-27] MEDS: ISOSORBIDE MONONITRATE ER 60 MG TAB.ER.24H PO SCH (08:03)
[2017-07-27] MEDS: POTASSIUM CHLORIDE ER 10 MEQ TAB.ER.PRT PO SCH (08:04)
[2017-07-27] MEDS: METOCLOPRAMIDE 10 MG TAB PO SCH ×3 (08:04→22:10)
[2017-07-27] MEDS: ASPIRIN 81 MG CHEW PO SCH (08:04)
[2017-07-27] MEDS: NYSTATIN 100,000 UNIT/GM OINT 30 GM TUBE TOPICAL SCH ×2 (08:30→19:27)
[2017-07-27 11:48] LABS: Glucose,Whole Blood 119 mg/dL (75-99)
[2017-07-27] MEDS: ATENOLOL 25 MG TAB PO SCH (16:03)
[2017-07-27] MEDS: SENNOSIDES-DOCUSATE SODIUM 1 EACH TAB PO SCH (16:04)
[2017-07-27] MEDS: POLYETHYLENE GLYCOL 3350 17 GM POWD.PACK PO SCH (16:04)
[2017-07-27 17:12] LABS: Glucose,Whole Blood 175 mg/dL (75-99)
--- NOTE | 2017-07-27 17:31 | P.PN ---
Progress Note - Text The patient had some blood noted, which was felt to be rectal by nursing. She is continuing to have some right-sided pain. Lab and temperature are normal. CAT scans of been unremarkable. I'd recommend letting the inflammation resolve and then doing a colonoscopy. This would decrease the risk of perforation.
--- NOTE | 2017-07-27 18:35 | P.PN ---
Progress Note - Text DATE OF SERVICE: 07/27/2017 PRESENTING COMPLAINT: Tired/UTI/Abdominal pain HISTORY OF PRESENT ILLNESS: 81-year-old female who was tired and lethargic found to have a UTI, cultures positive for E. coli, and was also having abdominal pain intermittently with an erratic bowel pattern. INTERVAL HISTORY: 07/27/2017: Should seen in follow-up today sitting in a chair at the bedside continues complaint right-sided abdominal pain particularly when she coughs. On going to the bathroom early this morning patient had an episode of blood in the toilet bowl, Concerns for vaginal/rectal bleeding, gynecology consulted, no vaginal bleeding, likely rectal. Gen. surgery already on the case. Patient's appetite is good eating 100% of her meals, ambulatory with some assist. Last BM 2016. 07/26/2017: Patient seen today in follow-up sitting up in bed continues to complain of right -sided abdominal pain particularly painful when she coughs. GI saw the patient today recommends antibiotic therapy for at least another 2 days. May need colonoscopy if pain persists. General surgery does not recommend any new interventions this time. Tolerating her diet eating 100% of her meals, ambulatory with minimal assist, last BM 07/23/2017. 07/25/2017: Patient seen today sitting up in the bed, continues to complain of right-sided abdominal pain particular painful when she agrees her coughs. Continue with a nonsurgical approach, encourage splinting when coughing or deep breathing to support. Bentyl adjusted. Tolerating her diet, eating about 75% -100% of her meals. Moving her bowels. Patient ambulatory with minimal assist, concerns from the family regarding returning to nursing care facility. Case management to come and evaluate and provide options. 07/24/2017: Patient seen in follow-up today continues to complain of right-sided abdominal pain, painful when she breathes or coughs. Surgery saw the patient this morning continuing with a nonsurgical approach. Continues on IV antibiotics for UTI. Tolerating her diet appetite is really good eating 75% of her meals. Patient is sitting up in the chair at the bedside. REVIEW OF SYSTEMS: Done for constitutional ,cardiovascular, GI, pulmonary with relevant findings as above. CURRENT MEDICATIONS Tylenol, Zyloprim, aspirin, Tenormin, Lipitor, ceftriaxone, diclofenac gel, Bentyl, Lasix, Levemir, Humalog, Reglan, Paxil, MiraLAX PHYSICAL EXAM VITAL SIGNS: Temperature 97.7, pulse 50, respiratory rate 17, blood pressure 119/59, oxygen saturation 96% on room air. GENERAL APPEARANCE: Sitting in the chair at the bedside, not in distress. EYES: Pupils equal. Conjunctiva normal. NECK: JVD not raised. Mass not palpable. RESPIRATORY: Respiratory effort normal. Lungs diminished to auscultation. CARDIOVASCULAR: First and second sounds normal. No edema. ABDOMEN: Soft. Liver and spleen not palpable. Right upper and lower quadrant tenderness, no guarding or rigidity No mass palpable. PSYCHIATRY: Alert and oriented x2-3. Mood and affect normal. DERMATOLOGIC: Bilateral necrobiosis lipodica INVESTIGATIONS: Accu-Cheks noted 07/22/2017 urine culture positive for E. coli. ASSESSMENT: -Acute UTI leading to metabolic encephalopathy present on admission in a patient with recurrent UTIs -Possibly acute colitis with good clinical response -Chronic constipation patient noted to have a lot of stool in the computed tomography scan -Diabetes mellitus type 2 on oral hypoglycemic -Essential hypertension -Hyperlipidemia -Alzheimer's dementia late onset type -Coronary artery disease or prior history of stent -chronic congestive heart failure from diastolic dysfunction EF 50% secondary to CAD -Obstructive sleep apnea does not use CPAP machine -Anxiety depression not otherwise specified -Primary osteoarthritis multiple joints, especially the knees -Kidney stones asymptomatic -Chronic sleepiness and drowsiness according to the daughter this could be developing be from patient being on Namenda/chronic encephalopathy. -Chronic gait dysfunction uses a walker PLAN: Continue IV antibiotics, per both GI and surgery as patient seems to be having good clinical response.. Patient may require colonoscopy prior to discharge if symptoms continue or worsen. GI in favor of waiting for inflammation to resolve prior to doing a colonoscopy. Plan of care discussed with the patient the bedside she is in agreement. We will continue to follow closely. Tentative discharge planning for the next 24-48 hours. ORCHID GROWER statement: Patient was seen and examined by nurse practitioner Zoë Lofton and all elements of the case discussed with attending Dr. Salas
--- NOTE | 2017-07-27 18:37 | P.PN ---
Progress Note - Text Attending note. Date of service-07/27/2017 This patient was seen and examined by me . Discussed the patient with my nurse practitioner Ms. Lofton. Patient is a very small amount of rectal bleeding, initially thought by the night staff to be vaginal but then conform with a day staff to be rectal. MANAGEMENT INFORMATION SYSTEMS DIRECTOR consult was done that canceled. Patient can use to eat well had a bowel movement yesterday. Right-sided abdominal pain is present. Patient appears sitting up rather comfortable On examination: Viezdzp-rgyds-trcox tenderness, no guarding or rigidity. Patient sitting on a chair comfortable smiling Investigations: White count 6.23.8 Assessment and plan: Acute UTI leading to metabolic encephalopathy presentation the patient recurrent UTIs now resolved -Acute right-sided colitis questionable diverticulitis on antibiotics with no fever and no white count. Patient tolerating a diet very well. Patient is on IV ceftriaxone. Continue same. We'll put the patient on clear liquids for now.
[2017-07-27] MEDS: INSULIN DETEMIR 100 UNIT/ML 10 ML VIAL SQ SCH (18:57)
[2017-07-27] MEDS: PARoxetine 10 MG TAB PO SCH (19:27)
[2017-07-27] MEDS: OXYBUTYNIN XL 5 MG TAB.ER.24 PO SCH (19:27)
[2017-07-27] MEDS: ATORVASTATIN 10 MG TAB PO SCH (19:27)
[2017-07-27 20:38] LABS: Glucose,Whole Blood 188 mg/dL (75-99)
[2017-07-28 01:23] LABS: Appearance,Urine Clear (Clear); Bacteria,Urine Rare /hpf; Bilirubin,Urine Negative (Negative); Glucose,Urine (UA) Negative (Negative); Ketones,Urine Negative (Negative); Leukocyte Esterase,Urine Small (Negative); Nitrite,Urine Negative (Negative); PH, Urine 5.5 (5.0-8.0); Particle Count 717; Protein,Urine Negative (Negative); RBC,Urine 3 /hpf (0-5); Specific Gravity,Urine 1.006 (1.001-1.035); Squamous Epithelial Cell,Urine 1 /hpf (0-4); UA Billing (MACRO vs. MICRO) MICRO; Urobilinogen,Urine <2.0 mg/dL (<2.0); WBC,Urine 7 /hpf (0-5)
[2017-07-28] MEDS: Acetaminophen-Codeine 300-30mg TAB PO PRN ×2 (06:11→20:20)
[2017-07-28] MEDS: DICLOFENAC SODIUM GEL 100 GM TUBE TOPICAL SCH ×4 (06:11→20:21)
[2017-07-28 06:57] LABS: Glucose,Whole Blood 109 mg/dL (75-99)
[2017-07-28] MEDS: INSULIN LISPRO (humaLOG) 300 UNIT/3 ML VIAL SQ SCH ×4 (08:19→21:00)
[2017-07-28] MEDS: DICYCLOMINE 20 MG TAB PO SCH ×3 (08:23→20:25)
[2017-07-28] MEDS: METOCLOPRAMIDE 10 MG TAB PO SCH ×2 (08:23→15:38)
[2017-07-28] MEDS: ASPIRIN 81 MG CHEW PO SCH (08:23)
[2017-07-28] MEDS: NYSTATIN 100,000 UNIT/GM OINT 30 GM TUBE TOPICAL SCH ×2 (08:23→20:22)
[2017-07-28] MEDS: FUROSEMIDE 20 MG TAB PO SCH (08:24)
[2017-07-28] MEDS: PANTOPRAZOLE 40 MG TABLET PO SCH (08:24)
[2017-07-28] MEDS: ACETAMINOPHEN TAB 325 MG TAB PO SCH ×2 (08:25→20:33)
[2017-07-28] MEDS: ARTIFICIAL TEARS-HYPROMELLOSE DROPS 15 ML BTL BOTH EYES SCH ×2 (08:25→20:22)
[2017-07-28] MEDS: ALLOPURINOL 100 MG TAB PO SCH (08:26)
[2017-07-28] MEDS: ATENOLOL 25 MG TAB PO SCH (08:26)
[2017-07-28] MEDS: ENOXAPARIN 40 MG/0.4 ML SYRINGE SQ SCH (08:26)
--- NOTE | 2017-07-28 10:34 | P.PN ---
Subjective Principal diagnosis: Abdominal pain 81-year-old female presents with acute right lower quadrant abdominal pain 2 weeks duration with alternating diarrhea constipation for several months. Bowel movements small amount of blood. CT reported inflammatory changes. Still reporting moderate tenderness to the right lower abdomen. Receiving IV antibiotics versus addition of diverticulitis colitis possible appendicitis. General surgery following closely. No history of colonoscopy. Denies diarrhea. No nausea vomiting. Tolerating clear liquid. Objective - Vital Signs Vital signs: Vital Signs Temp 98.1 F 07/28/17 07:24 Pulse 60 07/28/17 07:24 Resp 16 07/28/17 07:24 BP 155/71 07/28/17 07:24 Pulse Ox 94 L 07/28/17 07:24 Intake & Output 07/27/17 07/28/17 07/28/17 18:59 06:59 18:59 Intake Total 100 780 Output Total 600 Balance 100 180 Intake: Intake, IV Titration 100 Amount cefTRIAXone 1,000 mg In 100 Sodium Chloride 0.9% 50 ml @ 100 mls/hr IVPB Q24HR DANIEL Rx#:[id number] Oral 300 Other 480 Output: Urine 600 Other: Voiding Method Toilet Toilet Diaper Diaper # Voids 3 - Exam General appearance: The patient is alert, oriented, in no acute distress. HET: Head is normocephalic and atraumatic. Pupils are equal and reactive. Oropharynx is clear without lesions. Neck: Supple without lymphadenopathy. Trachea midline. Heart: S1 S2. Regular rate and rhythm. Lungs: No crackles or wheezes are heard. Abdomen: Soft, moderate tenderness right lower quadrant as well as diffuse tenderness across the remainder abdomen, mildly bloated with bowel sounds. No palpable organomegaly or masses. Extremities: Normal skin color and turgor. No cyanosis, rash, ulceration, clubbing, or edema. Radial and pedal pulses are 2/4 bilaterally. Neurological: No focal deficits. Strength and sensation are grossly intact. - Labs CBC & Chem 7: 07/27/17 07:15 07/27/17 07:15 Labs: Abnormal Lab Results - Last 24 Hours (Table) 07/27/17 07/27/17 07/27/17 Range/Units 11:47 17:05 20:26 POC Glucose (mg/dL) 119 H 175 H 188 H (75-99) mg/dL Urine Blood (Negative) Ur Leukocyte Esterase (Negative) Urine WBC (0-5) /hpf Urine WBC Clumps (None) /hpf Urine Bacteria (None) /hpf 07/27/17 07/28/17 Range/Units Unknown 06:51 POC Glucose (mg/dL) 109 H (75-99) mg/dL Urine Blood Trace H (Negative) Ur Leukocyte Esterase Small H (Negative) Urine WBC 7 H (0-5) /hpf Urine WBC Clumps Rare H (None) /hpf Urine Bacteria Rare H (None) /hpf Assessment and Plan (1) Abdominal pain Narrative/Plan: Suspect right-sided colitis possible diverticulitis possible ischemic possible subacute appendicitis however underlying malignancy cannot be entirely excluded change in bowel habits several months duration. Status: Acute Plan: 1. Colonoscopy tentatively scheduled for with Dr. Lopez. Plan of care was discussed with patient's daughter and son-in-law at bedside this morning. All questions were answered to their satisfaction. Continue clear liquid diet, IV antibiotics. Will allow additional 24 hours for IV antibiotics, bowel rest and IV fluids to manage patient's abdominal pain settled down inflammation and reassess tomorrow. Assessment and plan of care discussed with Dr. Lopez.
[2017-07-28] MEDS: ISOSORBIDE MONONITRATE ER 60 MG TAB.ER.24H PO SCH (11:04)
[2017-07-28] MEDS: SENNOSIDES-DOCUSATE SODIUM 1 EACH TAB PO SCH (11:04)
[2017-07-28 11:35] LABS: Glucose,Whole Blood 121 mg/dL (75-99)
[2017-07-28] MEDS: MULTIVITAMINS, THERA 1 EACH TAB PO SCH (12:49)
[2017-07-28 16:43] LABS: Glucose,Whole Blood 206 mg/dL (75-99)
--- NOTE | 2017-07-28 16:59 | P.PN ---
<Zoë Lofton Carol - Last Filed: 07/28/17 16:46> Progress Note - Text DATE OF SERVICE: 07/28/2017 PRESENTING COMPLAINT: Tired/UTI/Abdominal pain HISTORY OF PRESENT ILLNESS: 81-year-old female who was tired and lethargic found to have a UTI, cultures positive for E. coli, and was also having abdominal pain intermittently with an erratic bowel pattern. INTERVAL HISTORY: 07/28/2017: Patient seen in follow-up today, sitting in a chair at the bedside just finished breakfast complains of right-sided abdominal pain mostly when she coughs. Son-in-law and daughter at the bedside discussed plan of care and tentative plans for colonoscopy and EGD with GI on . Diet changed to clear liquid, tolerating her diet, ambulatory with some assist. Last BM 2016. 07/27/2017: Should seen in follow-up today sitting in a chair at the bedside continues complaint right-sided abdominal pain particularly when she coughs. On going to the bathroom early this morning patient had an episode of blood in the toilet bowl, Concerns for vaginal/rectal bleeding, gynecology consulted, no vaginal bleeding, likely rectal. Gen. surgery already on the case. Patient's appetite is good eating 100% of her meals, ambulatory with some assist. Last BM 2016. 07/26/2017: Patient seen today in follow-up sitting up in bed continues to complain of right -sided abdominal pain particularly painful when she coughs. GI saw the patient today recommends antibiotic therapy for at least another 2 days. May need colonoscopy if pain persists. General surgery does not recommend any new interventions this time. Tolerating her diet eating 100% of her meals, ambulatory with minimal assist, last BM 07/23/2017. 07/25/2017: Patient seen today sitting up in the bed, continues to complain of right-sided abdominal pain particular painful when she agrees her coughs. Continue with a nonsurgical approach, encourage splinting when coughing or deep breathing to support. Bentyl adjusted. Tolerating her diet, eating about 75% -100% of her meals. Moving her bowels. Patient ambulatory with minimal assist, concerns from the family regarding returning to nursing care facility. Case management to come and evaluate and provide options. 07/24/2017: Patient seen in follow-up today continues to complain of right-sided abdominal pain, painful when she breathes or coughs. Surgery saw the patient this morning continuing with a nonsurgical approach. Continues on IV antibiotics for UTI. Tolerating her diet appetite is really good eating 75% of her meals. Patient is sitting up in the chair at the bedside. REVIEW OF SYSTEMS: Done for constitutional ,cardiovascular, GI, pulmonary with relevant findings as above. CURRENT MEDICATIONS Tylenol, Zyloprim, aspirin, Tenormin, Lipitor, ceftriaxone, diclofenac gel, Bentyl, Lasix, Levemir, Humalog, Reglan, Paxil, MiraLAX, Dulcolax PHYSICAL EXAM VITAL SIGNS: Temperature 97.6, pulse 55, respirations 16, blood pressure 126/57, oxygen saturation 94% on room air. GENERAL APPEARANCE: Sitting in the chair at the bedside, not in distress. EYES: Pupils equal. Conjunctiva normal. NECK: JVD not raised. Mass not palpable. RESPIRATORY: Respiratory effort normal. Lungs diminished to auscultation. CARDIOVASCULAR: First and second sounds normal. No edema. ABDOMEN: Soft. Liver and spleen not palpable. Right upper and lower quadrant tenderness, no guarding or rigidity No mass palpable. PSYCHIATRY: Alert and oriented x2-3. Mood and affect normal. DERMATOLOGIC: Bilateral necrobiosis lipodica INVESTIGATIONS: White blood cell count 6.2, platelet count 143, Accu-Cheks noted ASSESSMENT: -Acute UTI leading to metabolic encephalopathy present on admission in a patient with recurrent UTIs -Possibly acute colitis with good clinical response -Chronic constipation patient noted to have a lot of stool in the computed tomography scan -Diabetes mellitus type 2 on oral hypoglycemic -Essential hypertension -Hyperlipidemia -Alzheimer's dementia late onset type -Coronary artery disease or prior history of stent -chronic congestive heart failure from diastolic dysfunction EF 50% secondary to CAD -Obstructive sleep apnea does not use CPAP machine -Anxiety depression not otherwise specified -Primary osteoarthritis multiple joints, especially the knees -Kidney stones asymptomatic -Chronic sleepiness and drowsiness according to the daughter this could be developing be from patient being on Namenda/chronic encephalopathy, improved -Chronic gait dysfunction uses a walker PLAN: Continue IV antibiotics, per both GI and surgery as patient seems to be having good clinical response.. Tentative plans for EGD and colonoscopy for with GI. Plan of care discussed with the patient and family the bedside she is in agreement. We will continue to follow closely. Tentative discharge planning for the next 24-48 hours. 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 Salas <Aquilino Salas - Last Filed: 07/28/17 21:19> Progress Note - Text Attending note. Date of [id number]/28/2017 This patient was seen and examined by me . Discussed the patient with my nurse practitioner Ms. Lofton. The patient was switched to clear liquids last night. Still complains of some right low cord pain. GI is planning to colonoscopy on . On examination: Sitting up in chair comfortable abdomen-right low quadrant tenderness no guarding or rigidity. Investigations: Accu-Cheks noted Assessment and plan: Possible right-sided colitis, on antibiotics. Per GI Will proceed with colonoscopy as symptoms are not improved or expected. The clinically patient appears rather comfortable with no fever and a white count. Switched over to a clear liquid diet.
[2017-07-28] MEDS: INSULIN DETEMIR 100 UNIT/ML 10 ML VIAL SQ SCH (17:51)
[2017-07-28] MEDS: ATORVASTATIN 10 MG TAB PO SCH (20:22)
[2017-07-28] MEDS: OXYBUTYNIN XL 5 MG TAB.ER.24 PO SCH (20:23)
[2017-07-28] MEDS: PARoxetine 10 MG TAB PO SCH (20:23)
[2017-07-28 21:01] LABS: Glucose,Whole Blood 163 mg/dL (75-99)
[2017-07-29] MEDS: METOCLOPRAMIDE 10 MG TAB PO SCH ×4 (00:22→22:14)
[2017-07-29] MEDS: DICLOFENAC SODIUM GEL 100 GM TUBE TOPICAL SCH ×4 (02:42→19:00)
[2017-07-29 06:58] LABS: Glucose,Whole Blood 83 mg/dL (75-99)
[2017-07-29] MEDS: POTASSIUM CHLORIDE ER 10 MEQ TAB.ER.PRT PO SCH (08:48)
[2017-07-29] MEDS: INSULIN LISPRO (humaLOG) 300 UNIT/3 ML VIAL SQ SCH ×4 (08:48→20:22)
[2017-07-29] MEDS: MULTIVITAMINS, THERA 1 EACH TAB PO SCH (08:49)
[2017-07-29] MEDS: ASPIRIN 81 MG CHEW PO SCH (08:49)
[2017-07-29] MEDS: ALLOPURINOL 100 MG TAB PO SCH (08:49)
[2017-07-29] MEDS: ATENOLOL 25 MG TAB PO SCH (08:50)
[2017-07-29] MEDS: FUROSEMIDE 20 MG TAB PO SCH (08:50)
[2017-07-29] MEDS: DICYCLOMINE 20 MG TAB PO SCH ×3 (08:50→22:14)
[2017-07-29] MEDS: PANTOPRAZOLE 40 MG TABLET PO SCH (08:50)
[2017-07-29] MEDS: POLYETHYLENE GLYCOL 3350 17 GM POWD.PACK PO SCH (08:51)
[2017-07-29] MEDS: ARTIFICIAL TEARS-HYPROMELLOSE DROPS 15 ML BTL BOTH EYES SCH ×2 (08:51→20:21)
[2017-07-29] MEDS: NYSTATIN 100,000 UNIT/GM OINT 30 GM TUBE TOPICAL SCH ×2 (09:45→20:22)
--- NOTE | 2017-07-29 09:46 | P.PN ---
Subjective Principal diagnosis: Abdominal pain 81-year-old female presents with acute right lower quadrant abdominal pain 2 weeks duration with alternating diarrhea constipation for several months. Bowel movement last night with small clot. Abdominal pain improved not as tender. Afebrile. Tolerating clear liquid. Objective - Vital Signs Vital signs: Vital Signs Temp 97.0 F L 07/29/17 00:54 Pulse 53 L 07/29/17 00:54 Resp 16 07/29/17 00:54 BP 159/79 07/29/17 08:46 Pulse Ox 94 L 07/29/17 00:54 Intake & Output 07/28/17 07/29/17 07/29/17 18:59 06:59 18:59 Intake Total 50 Balance 50 Intake: Intake, IV Titration 50 Amount cefTRIAXone 1,000 mg In 50 Sodium Chloride 0.9% 50 ml @ 100 mls/hr IVPB Q24HR [facility] Rx#:[id number] Other: Voiding Method Toilet Toilet Diaper Diaper # Voids 1 6 - Exam General appearance: The patient is alert, oriented, in no acute distress. HET: Head is normocephalic and atraumatic. Pupils are equal and reactive. Oropharynx is clear without lesions. Neck: Supple without lymphadenopathy. Trachea midline. Heart: S1 S2. Regular rate and rhythm. Lungs: No crackles or wheezes are heard. Abdomen: Soft, mild tenderness right lower quadrant as well as diffuse tenderness across the remainder abdomen, mildly bloated with bowel sounds. No palpable organomegaly or masses. Extremities: Normal skin color and turgor. No cyanosis, rash, ulceration, clubbing, or edema. Radial and pedal pulses are 2/4 bilaterally. Neurological: No focal deficits. Strength and sensation are grossly intact. - Labs CBC & Chem 7: 07/27/17 07:15 07/27/17 07:15 Labs: Abnormal Lab Results - Last 24 Hours (Table) 07/28/17 07/28/17 07/28/17 Range/Units 11:18 16:38 20:59 POC Glucose (mg/dL) 121 H 206 H 163 H (75-99) mg/dL Microbiology - Last 24 Hours (Table) 07/27/17 Unknown Urine Culture - Preliminary Urine,Clean Catch Assessment and Plan (1) Abdominal pain Narrative/Plan: Suspect right-sided colitis possible diverticulitis possible ischemic possible subacute appendicitis however underlying malignancy cannot be entirely excluded change in bowel habits several months duration. Status: Acute Plan: 1. Colonoscopy tomorrow. Plan of care was discussed with patient's daughter at bedside this morning. All questions were answered to her satisfaction. Continue clear liquid diet, IV antibiotics. Assessment and plan of care discussed with Dr. Lopez.
[2017-07-29] MEDS: ACETAMINOPHEN TAB 325 MG TAB PO SCH ×2 (10:54→20:21)
[2017-07-29] MEDS: ISOSORBIDE MONONITRATE ER 60 MG TAB.ER.24H PO SCH (13:30)
[2017-07-29] MEDS ORDERED: PEG 3350-NA SULF,BICARB,CL/KCL 4,000 ML BOTTLE PO ONE (14:00)
[2017-07-29 14:07] LABS: Glucose,Whole Blood 167 mg/dL (75-99)
[2017-07-29 16:58] LABS: Glucose,Whole Blood 153 mg/dL (75-99)
[2017-07-29] MEDS: INSULIN DETEMIR 100 UNIT/ML 10 ML VIAL SQ SCH (18:00)
[2017-07-29] MEDS: SENNOSIDES-DOCUSATE SODIUM 1 EACH TAB PO SCH (18:14)
[2017-07-29] MEDS: BISACODYL 10 MG SUPP RECTAL SCH (18:14)
[2017-07-29 20:18] LABS: Glucose,Whole Blood 142 mg/dL (75-99)
[2017-07-29] MEDS: ATORVASTATIN 10 MG TAB PO SCH (20:22)
[2017-07-29] MEDS: OXYBUTYNIN XL 5 MG TAB.ER.24 PO SCH (20:22)
[2017-07-29] MEDS: PARoxetine 10 MG TAB PO SCH (20:22)
[2017-07-30] MEDS: DICLOFENAC SODIUM GEL 100 GM TUBE TOPICAL SCH ×4 (02:25→20:42)
[2017-07-30 07:03] LABS: Glucose,Whole Blood 88 mg/dL (75-99)
--- NOTE | 2017-07-30 07:29 | PN ---
PROGRESS NOTE Date of Service: DATE OF SERVICE: 07/30/2017 PRESENTING COMPLAINT: Abdominal pain. INTERVAL HISTORY: This is a patient initially presented with UTI positive for E coli. Been having intermittent abdominal pain, long-standing off and on. Patient's pain is more right- sided and it was felt patient may have colitis. Already patient on IV antibiotics. Patient is now currently on a clear liquid diet. Pain is better. Daughter is at the bedside. Due to go down for colonoscopy with GI. Patient actually says the pain is much better. REVIEW OF SYSTEMS: Done for constitutional, cardiovascular, GI, pulmonary; relevant findings as above. Current medications are reviewed that include IV ceftriaxone. PHYSICAL EXAMINATION: Temperature 97, pulse 83, respirations 16, blood pressure 165/72, pulse of 94% on room air. GENERAL APPEARANCE: Sitting on bed. Comfortable, smiling. EYES: Pupils normal. NECK: JVD unable to assess, mass not palpable. RESPIRATORY: Effort normal. LUNGS: Fair air entry. CARDIOVASCULAR: First and second sounds, no edema. ABDOMEN: Soft, some right-sided tenderness, no guarding or rigidity. Liver and spleen are palpable. PSYCHIATRY: Answering simple questions. Mood and affect cheerful. INVESTIGATIONS: Accu-Cheks noted. ASSESSMENT: 1. Acute right-sided colitis, clinically improving pending colonoscopy. 2. Acute urinary tract infection leading to metabolic encephalopathy present on admission in a patient with recurrent urinary tract infections, improved. 3. Chronic constipation, multifactorial. 4. Diabetes mellitus type 2, on oral hyperglycemic. 5. Essential hypertension. 6. Hyperlipidemia. 7. Alzheimer's dementia, late onset type. 8. Coronary artery disease with a prior history of stent. 9. Chronic congestive heart failure from diastolic dysfunction, ejection fraction 50% secondary to coronary artery disease. 10.Obstructive sleep apnea, does not use CPAP machine. 11.Anxiety and depression, not otherwise specified. 12.Primary osteoarthritis of multiple joints, especially on the knees. 13.Kidney stones, asymptomatic. 14.Chronic encephalopathy, could be medication induced, now doing somewhat better. 15.Chronic gait dysfunction, uses a walker. PLAN: Continue with IV antibiotics. Awaiting colonoscopy. Care was discussed with daughter at the bedside. Will follow. MMODL / IJN: [id number] /
[2017-07-30] MEDS: INSULIN LISPRO (humaLOG) 300 UNIT/3 ML VIAL SQ SCH ×4 (08:18→20:37)
[2017-07-30] MEDS: PANTOPRAZOLE 40 MG TABLET PO SCH (08:50)
[2017-07-30] MEDS: METOCLOPRAMIDE 10 MG TAB PO SCH ×3 (08:50→20:28)
[2017-07-30] MEDS: ACETAMINOPHEN TAB 325 MG TAB PO SCH ×2 (08:50→20:30)
[2017-07-30] MEDS: FUROSEMIDE 20 MG TAB PO SCH ×2 (08:50→15:17)
[2017-07-30] MEDS: ASPIRIN 81 MG CHEW PO SCH (08:50)
[2017-07-30] MEDS: ALLOPURINOL 100 MG TAB PO SCH (08:50)
[2017-07-30] MEDS: SENNOSIDES-DOCUSATE SODIUM 1 EACH TAB PO SCH (08:53)
[2017-07-30] MEDS: BISACODYL 10 MG SUPP RECTAL SCH (08:53)
[2017-07-30] MEDS: DICYCLOMINE 20 MG TAB PO SCH ×3 (08:53→20:29)
[2017-07-30] MEDS: ATENOLOL 25 MG TAB PO SCH (08:56)
[2017-07-30] MEDS: ARTIFICIAL TEARS-HYPROMELLOSE DROPS 15 ML BTL BOTH EYES SCH ×2 (08:57→20:29)
[2017-07-30] MEDS: NYSTATIN 100,000 UNIT/GM OINT 30 GM TUBE TOPICAL SCH ×2 (09:02→20:30)
[2017-07-30 11:32] LABS: Glucose,Whole Blood 95 mg/dL (75-99)
[2017-07-30] MEDS: ISOSORBIDE MONONITRATE ER 60 MG TAB.ER.24H PO SCH ×2 (11:49→15:17)
[2017-07-30] MEDS: MULTIVITAMINS, THERA 1 EACH TAB PO SCH (11:49)
[2017-07-30] MEDS ORDERED: IV FLUID CONTINUATION 1,000 ML IV ONE (13:29)
[2017-07-30] MEDS ORDERED: PROPOFOL 10 MG/ML 20 ML VIAL IV ONE (13:31)
--- NOTE | 2017-07-30 14:08 | P.PCN ---
Date of Procedure: 07/30/17 Preoperative Diagnosis: Postoperative Diagnosis: Procedure(s) Performed: Procedure: Total colonoscopy. Preoperative diagnosis: Abdominal pain and abnormal CT. Postoperative diagnosis: 1. Sigmoid diverticulosis with no evidence of acute diverticulitis, strictures, polyps or cancer. 2. Cecum and terminal ileum and right colon within normal limits. Preparation: GoLYTELY prep. Sedation: Was provided by anesthesia. Brief clinical history: The patient is an 81-year-old female who presented with acute right lower quadrant abdominal pain of 2 weeks duration with alternating diarrhea constipation for several months. CT of the abdomen showed persistent inflammatory process in the right lower quadrant raising the possibility of chronic appendicitis or right-sided diverticulitis. This evaluation was planned to rule out neoplasia or other pathology. The details are summarized in the history and physical and dictated consultations and progress notes.. Procedure: With the patient on her left lateral decubitus position and after informed consent and adequate sedation, the perianal area was inspected and it did not show any fissures or fistulas. There were no masses felt on digital rectal examination. The Olympus CFQ 160L video colonoscope was then inserted in the rectum in the usual fashion and advanced to the cecum. I intubated the ileocecal valve and examined the terminal ileum. There were multiple diverticular orifices seen scattered in the sigmoid with no evidence of acute diverticulitis or strictures. The mucosa appeared healthy. The preparation was good. No abnormalities were seen on the right side including the cecum and the terminal ileum. I retroflexed the endoscope in the rectum before the endoscope was withdrawn. The patient tolerated the procedure well. Plan: The patient was reassured. Discussed dietary measures. Will allow diet and further plans will be based on his her course. Implants: Indications for Procedure: Operative Findings: Description of Procedure:
[2017-07-30 16:39] LABS: Glucose,Whole Blood 125 mg/dL (75-99)
[2017-07-30] MEDS: INSULIN DETEMIR 100 UNIT/ML 10 ML VIAL SQ SCH (17:42)
[2017-07-30] MEDS: Acetaminophen-Codeine 300-30mg TAB PO PRN (18:28)
[2017-07-30] MEDS: PARoxetine 10 MG TAB PO SCH (20:28)
[2017-07-30] MEDS: ATORVASTATIN 10 MG TAB PO SCH (20:29)
[2017-07-30] MEDS: OXYBUTYNIN XL 5 MG TAB.ER.24 PO SCH (20:29)
[2017-07-30 20:42] LABS: Glucose,Whole Blood 184 mg/dL (75-99)
[2017-07-30] MEDS: CEFUROXIME 250 MG TAB PO SCH (20:42)
[2017-07-31] MEDS: DICLOFENAC SODIUM GEL 100 GM TUBE TOPICAL SCH ×3 (01:29→14:19)
[2017-07-31] MEDS: Acetaminophen-Codeine 300-30mg TAB PO PRN (04:30)
[2017-07-31 07:17] LABS: Glucose,Whole Blood 108 mg/dL (75-99)
--- NOTE | 2017-07-31 07:36 | P.PN ---
Subjective Principal diagnosis: Abdominal pain 81-year-old female presents with acute right lower quadrant abdominal pain 2 weeks duration with alternating diarrhea constipation for several months. Colonoscopy yesterday within normal limits diverticulosis. Feels well. Tolerating regular diet. Minimal abdominal pain. Objective - Vital Signs Vital signs: Vital Signs Temp 97.1 F L 07/31/17 07:00 Pulse 55 L 07/31/17 07:00 Resp 20 07/31/17 07:00 BP 143/64 07/31/17 07:00 Pulse Ox 97 07/31/17 07:00 Intake & Output 07/30/17 07/31/17 07/31/17 18:59 06:59 18:59 Intake Total 290 400 Balance 290 400 Intake: IV 50 Oral 240 Other 400 Other: Voiding Method Toilet # Voids 3 # Bowel Movements 2 - Exam General appearance: The patient is alert, oriented, in no acute distress. HET: Head is normocephalic and atraumatic. Pupils are equal and reactive. Oropharynx is clear without lesions. Neck: Supple without lymphadenopathy. Trachea midline. Heart: S1 S2. Regular rate and rhythm. Lungs: No crackles or wheezes are heard. Abdomen: Soft, mild tenderness right lower quadrant with bowel sounds. No palpable organomegaly or masses. Extremities: Normal skin color and turgor. No cyanosis, rash, ulceration, clubbing, or edema. Radial and pedal pulses are 2/4 bilaterally. Neurological: No focal deficits. Strength and sensation are grossly intact. - Labs CBC & Chem 7: 07/27/17 07:15 07/27/17 07:15 Labs: Abnormal Lab Results - Last 24 Hours (Table) 07/30/17 07/30/17 07/31/17 Range/Units 16:36 20:34 07:13 POC Glucose (mg/dL) 125 H 184 H 108 H (75-99) mg/dL Assessment and Plan (1) Abdominal pain Narrative/Plan: s/p unremarkable colonoscopy. Status: Acute Plan: 1. DC per medicine. Will sign off.
[2017-07-31] MEDS: METOCLOPRAMIDE 10 MG TAB PO SCH (08:17)
[2017-07-31] MEDS: CEFUROXIME 250 MG TAB PO SCH (08:17)
[2017-07-31] MEDS: PANTOPRAZOLE 40 MG TABLET PO SCH (08:17)
[2017-07-31] MEDS: ATENOLOL 25 MG TAB PO SCH (08:17)
[2017-07-31] MEDS: FUROSEMIDE 20 MG TAB PO SCH (08:17)
[2017-07-31] MEDS: ALLOPURINOL 100 MG TAB PO SCH (08:18)
[2017-07-31] MEDS: POTASSIUM CHLORIDE ER 10 MEQ TAB.ER.PRT PO SCH (08:18)
[2017-07-31] MEDS: ARTIFICIAL TEARS-HYPROMELLOSE DROPS 15 ML BTL BOTH EYES SCH (08:18)
[2017-07-31] MEDS: DICYCLOMINE 20 MG TAB PO SCH (08:18)
[2017-07-31] MEDS: ASPIRIN 81 MG CHEW PO SCH (08:18)
[2017-07-31] MEDS: POLYETHYLENE GLYCOL 3350 17 GM POWD.PACK PO SCH (08:19)
[2017-07-31] MEDS: INSULIN LISPRO (humaLOG) 300 UNIT/3 ML VIAL SQ SCH ×2 (08:19→11:39)
[2017-07-31] MEDS: BISACODYL 10 MG SUPP RECTAL SCH (08:19)
[2017-07-31] MEDS: ACETAMINOPHEN TAB 325 MG TAB PO SCH (08:19)
[2017-07-31] MEDS: SENNOSIDES-DOCUSATE SODIUM 1 EACH TAB PO SCH (08:27)
--- NOTE | 2017-07-31 09:33 | PN ---
PROGRESS NOTE Date of Service: DATE OF SERVICE: 07/30/2017 PRESENTING COMPLAINT: Abdominal pain. INTERVAL HISTORY: This is a patient who initially presented with UTI for E coli. He has been having long- standing intermittent abdominal pain on and off, more on the right side, felt to be colitis. Pain overall is better. The patient went for a colonoscopy today and came back showing diverticulosis. No other major abnormality was found. REVIEW OF SYSTEMS: Review of systems done for constitutional, cardiovascular, GI, pulmonary; relevant findings as above. CURRENT MEDICATIONS: Current medications are reviewed and include IV ceftriaxone. EXAMINATION: On examination, temperature 97.6, pulse 52, respirations 16, blood pressure 139/63, pulse ox 97% room air. GENERAL APPEARANCE: Sitting in a chair, comfortable. EYES: Pupils equal, conjunctivae normal. NECK: JVD unable to assess. Mass palpable. RESPIRATORY: Effort normal. LUNGS: Fair air entry. CARDIOVASCULAR: First and second sounds normal. No edema. ABDOMEN: Soft. Right-sided tenderness. No guarding or rigidity. Liver and spleen not palpable. PSYCHIATRY: Awake, answering questions, smiling. INVESTIGATIONS: Accu-Cheks are noted. ASSESSMENT: 1. Acute right-sided colitis, clinically much improved, now with colonoscopy results noted. 2. Colonic diverticulosis. 3. Acute urinary tract infection leading to metabolic encephalopathy, present on admission. Recurrent urinary tract infections now clinically resolved. 4. Chronic constipation, multifactorial. 5. Diabetes mellitus type 2 on oral hypoglycemic. 6. Essential hypertension. 7. Hyperlipidemia. 8. Alzheimer's dementia, late onset type. 9. Coronary artery disease with prior history of stent. 10.Chronic congestive heart failure from diastolic dysfunction. Ejection fraction 50% secondary to coronary artery disease. 11.Obstructive sleep apnea. Does not use CPAP machine. 12.Anxiety and depression, not otherwise specified. 13.Primary osteoarthritis of multiple joints especially the knee. 14.Kidney stones, asymptomatic. 15.Chronic encephalopathy could be medication induced, now doing much better. 16.Chronic gait dysfunction, uses a walker. PLAN: I spoke to the family before the procedure. Now the results are known. Will switch the patient to oral antibiotics to complete her short spell for the colitis. Patient should be able to be discharged hopefully tomorrow. MMODL / IJN: [id number] /
--- NOTE | 2017-07-31 09:37 | PN ---
PROGRESS NOTE Date of Service: 07/29/2017 CORRECTION: Please note my progress note dictated yesterday at 07/29/17 at 1519, date transcribed on 07/30/17 at 0722, the correct date of service should read 07/29/17. MARYA / IJN: [id number] /
[2017-07-31 11:33] LABS: Glucose,Whole Blood 102 mg/dL (75-99)
[2017-07-31] MEDS: ISOSORBIDE MONONITRATE ER 60 MG TAB.ER.24H PO SCH (11:38)
[2017-07-31] MEDS: MULTIVITAMINS, THERA 1 EACH TAB PO SCH (11:38)
[2017-07-31 15:05] VITALS: BP 134/60; PULSE 59; RESP 16; TEMP 98.4
--- NOTE | 2017-07-31 15:08 | P.DS ---
<Zoë Lofton - Last Filed: 07/31/17 14:49> Providers Date of admission: 07/22/17 14:21 Expected date of discharge: 07/31/17 Attending physician: Aquilino Salas Consults: 07/22/17 14:21 Consult Physician Urgent Consulting Provider: Tati Carmona Consult Reason/Comments: ?ap[y Do you want consulting provider notified?: Yes Primary care physician: [facility] Course: FINAL DIAGNOSES: -Acute right-sided colitis, clinically much improved now with colonoscopy results noted. -Colonic diverticulosis. -Acute urinary tract infection leading to metabolic encephalopathy, present on admission. Recurrent urinary tract infections now clinically resolved. -Chronic constipation, multifactorial. -Diabetes mellitus type 2 on oral hypoglycemics. -Essential hypertension. -Hyperlipidemia. -Alzheimer's dementia, late onset type. -Coronary artery disease prior history of stents. -Chronic congestive heart failure from diastolic dysfunction. Ejection fraction 50% secondary to coronary artery disease. -Obstructive sleep apnea. Does not use a CPAP machine. -Anxiety and depression not otherwise specified. -Primary osteoarthritis of multiple joints especially the knee. -Kidney stones, asymptomatic. -Chronic encephalopathy could be medicine induced now doing much better. -Chronic gait dysfunction, uses a walker. HOSPTIAL COURSE: 81-year-old female who presented with lethargy and was increasingly sleepy was found to have a UTI. Has had intermittent right quadrant abdominal pain for a long time with an erratic bowel pattern and diarrhea. Concerns for appendicitis , Gen. surgery was consulted. Diagnostic imaging revealed no evidence of acute appendicitis or diverticulitis and suggested colonoscopy in the outpatient setting. Patient continued to complain of abdominal pain right upper and lower quadrants, thought to be an inflammatory process, GI consulted and recommended colonoscopy. Procedure completed and revealed sigmoid diverticulosis no evidence of acute diverticulitis, strictures, polyps or cancer with cecum and terminal ileum right colon within normal limits. Abdominal pain improved, tolerating her diet eating between 75 and 100% of her meals, last BM 07/30/2017 ambulatory with assistance and walker. Condition stabilized patient will benefit from a brief stay at rehab for gait training and strengthening and as such will be transferred to [facility] on the [facility]. PHYSICAL EXAM: CARDIOVASCULAR: First and second sounds noted generalized edema RESPIRATORY: Effort normal diminished breath sounds bilaterally GI: Abdomen soft mild tenderness noted to the right upper and lower quadrants liver and spleen not palpable. Patient was seen and examined by nurse practitioner Zoë Lofton in all elements of the case discussed with attending Dr. Salas DISPOSITION: Discharge to [facility] the [facility]. Patient Condition at Discharge: Fair Plan - Discharge Summary New Discharge Prescriptions: New Acetaminophen-Codeine 300-30mg [Tylenol w/codeine #3] 1 each PO Q6HR PRN #20 tab PRN Reason: Pain Cefuroxime [Ceftin] 500 mg PO BID #6 tab Dicyclomine [Bentyl] 20 mg PO TID tab Furosemide [Lasix] 20 mg PO DAILY@0700 tab INSULIN LISPRO (humaLOG) [humaLOG (formulary)] 0 unit SQ ACHS vial Pantoprazole [Protonix] 40 mg PO AC-BRKFST tab Polyethylene Glycol 3350 [Miralax] 17 gm PO DAILY pack Sennosides-Docusate Sodium [Senokot-S] 1 each PO DAILY tab Continue Insulin Detemir [Levemir] 20 unit SQ DAILY@1700 Allopurinol [Zyloprim] 100 mg PO DAILY@0800 Solifenacin Succinate [Vesicare] 5 mg PO HS@2000 PARoxetine [Paxil] 10 mg PO HS@2000 Artificial Tears-Hypromellose [Artificial Tear Drops] 2 drops BOTH EYES BID@ 0800,1999 Menthol-Zinc Oxide Oint [Risamine Oint] 1 applic TOPICAL BID@0800,1999 Multivitamins, Thera [Multivitamin (formulary)] 1 tab PO DAILY@0800 Nystatin 100,000 Unit/gm Oint [Mycostatin Oint] 1 applic TOPICAL BID@0800, 1999 Isosorbide Mononitrate ER [Imdur] 60 mg PO AC-LUNCH@1200 Diclofenac Sodium Gel [Voltaren Gel] 2 gm TOPICAL QID@01,07,13,19 Atenolol 25 mg PO DAILY@0800 Aspirin EC [Ecotrin Low Dose] 81 mg PO DAILY@0800 Atorvastatin [Lipitor] 10 mg PO HS@2000 Potassium Chloride ER [K-Dur 10] 10 meq PO MOWEFR@0700 Changed Metoclopramide [Reglan] 5 mg PO TID@0700,1500,2300 PRN #10 PRN Reason: Nausea Discontinued Acetaminophen Tab [Tylenol] 650 mg PO BID@0800,1999 Memantine [Namenda] 5 mg PO BID@08,1999 Furosemide [Lasix] 20 mg PO DAILY@0700 Discharge Medication List Insulin Detemir [Levemir] 20 unit SQ DAILY@1700 12/19/14 [History] Allopurinol [Zyloprim] 100 mg PO DAILY@0800 05/10/15 [History] Artificial Tears-Hypromellose [Artificial Tear Drops] 2 drops BOTH EYES BID@08 ,199909/14/16 [History] PARoxetine [Paxil] 10 mg PO HS@199909/14/16 [History] Solifenacin Succinate [Vesicare] 5 mg PO HS@199909/14/16 [History] Menthol-Zinc Oxide Oint [Risamine Oint] 1 applic TOPICAL BID@799,199902/09/17 [History] Multivitamins, Thera [Multivitamin (formulary)] 1 tab PO DAILY@0802/09/17 [ History] Atenolol 25 mg PO DAILY@0806/09/17 [History] Diclofenac Sodium Gel [Voltaren Gel] 2 gm TOPICAL QID@,,,06/09/17 [ History] Isosorbide Mononitrate ER [Imdur] 60 mg PO AC-LUNCH@119906/09/17 [History] Nystatin 100,000 Unit/gm Oint [Mycostatin Oint] 1 applic TOPICAL BID@0800,199906/09/17 [History] Aspirin EC [Ecotrin Low Dose] 81 mg PO DAILY@0807/22/17 [History] Atorvastatin [Lipitor] 10 mg PO HS@199907/22/17 [History] Potassium Chloride ER [K-Dur 10] 10 meq PO MOWEFR@69907/22/17 [History] Acetaminophen-Codeine 300-30mg [Tylenol w/codeine #3] 1 each PO Q6HR PRN #20 tab 07/31/17 [Rx] Cefuroxime [Ceftin] 500 mg PO BID #6 tab 07/31/17 [Rx] Dicyclomine [Bentyl] 20 mg PO TID tab 07/31/17 [Rx] Furosemide [Lasix] 20 mg PO DAILY@0700 tab 07/31/17 [Rx] INSULIN LISPRO (humaLOG) [humaLOG (formulary)] 0 unit SQ ACHS vial 07/31/17 [Rx ] Metoclopramide [Reglan] 5 mg PO TID@0700,1500,2300 PRN #10 07/31/17 [Rx] Pantoprazole [Protonix] 40 mg PO AC-BRKFST tab 07/31/17 [Rx] Polyethylene Glycol 3350 [Miralax] 17 gm PO DAILY pack 07/31/17 [Rx] Sennosides-Docusate Sodium [Senokot-S] 1 each PO DAILY tab 07/31/17 [Rx] Follow up Appointment(s)/Referral(s): Tati Carmona DO [Doctor of Osteopathic Medicine] - (4-6 weeks for colonoscopy) Kuldeep Sorto DO [Primary Care Provider] - 1-2 days Discharge Disposition: TRANSFER TO SNF/ECF <Aquilino Salas - Last Filed: 07/31/17 22:52> Hospital Course: Attending note. Date of service-07/31/2017 This patient was seen and examined by me . Discussed the patient with my nurse practitioner Ms. Lofton. Feeding better. Patient much better controlled she states. Tolerating diet. On examination: Abdomen soft with minimal tenderness. Sitting up comfortable smiling Investigations: Assessment and plan: Possible acute colitis. Much improved. Computed course and her buttocks. Overall prognosis is guarded. DC the ECF.
== END 2017-07-31 15:47 | DRG 391 ==
LOC: EC 10:34 → OBSVTOIN 14:21 → 3SUR 14:21
PROVIDERS: ADMIT Hospitalist; ATTEND Hospitalist
PROC: 0DJD8ZZ Inspection of Lower Intestinal Tract, Via Natural or Artificial Opening Endoscopic (ICD-10-PCS; principal; 2017-07-30 13:45)
DX: K52.9 Noninfective gastroenteritis and colitis, unspecified (principal); G93.41 Metabolic encephalopathy; N39.0 Urinary tract infection, site not specified; I50.32 Chronic diastolic (congestive) heart failure; I11.0 Hypertensive heart disease with heart failure; E11.9 Type 2 diabetes mellitus without complications; B96.20 Unspecified Escherichia coli [E. coli] as the cause of diseases classified elsewhere; K62.5 Hemorrhage of anus and rectum; G30.1 Alzheimer's disease with late onset; F02.80 Dementia in other diseases classified elsewhere, unspecified severity, without behavioral disturbance, psychotic disturbance, mood disturbance, and anxiety; K57.30 Diverticulosis of large intestine without perforation or abscess without bleeding; K59.09 Other constipation; I25.10 Atherosclerotic heart disease of native coronary artery without angina pectoris; G89.29 Other chronic pain; E78.5 Hyperlipidemia, unspecified; G47.33 Obstructive sleep apnea (adult) (pediatric); M17.0 Bilateral primary osteoarthritis of knee; F41.8 Other specified anxiety disorders; N20.0 Calculus of kidney; R26.9 Unspecified abnormalities of gait and mobility; Z16.24 Resistance to multiple antibiotics; Z79.4 Long term (current) use of insulin; Z79.82 Long term (current) use of aspirin; Z79.899 Other long term (current) drug therapy; Z90.710 Acquired absence of both cervix and uterus; Z86.73 Personal history of transient ischemic attack (TIA), and cerebral infarction without residual deficits; Z98.42 Cataract extraction status, left eye; Z98.41 Cataract extraction status, right eye; Z87.440 Personal history of urinary (tract) infections; Z95.5 Presence of coronary angioplasty implant and graft
CPT/HCPCS: 36415; 45378; 71010; 74176; 74177; 80048; 80053; 81001; 82150; 82550; 82553; 83605; 83690; 84484; 85025; 85027; 87077; 87086; 87186; 99285

== ENCOUNTER → 2017-10-09 | Outpatient (CLI) | payer MEDICARE, OTHER ==
--- NOTE | 2017-10-09 12:54 | XR ---
EXAMINATION TYPE: XR KUB DATE OF EXAM: 10/09/2017 COMPARISON: NONE INDICATION: Left-sided lithotripsy TECHNIQUE: Single view abdomen upright view FINDINGS: There is a normal bowel gas pattern. Psoas margins are normal. No organomegaly is present. Fecal debris is within the descending colon There is a calcification overlying the left kidney which is changed configuration from the prior stud y. This currently measures 1.5 x 1.0 cm and is likely fragmented. IMPRESSION: 1. Fragmented calcification inferior pole left kidney
== END | disposition home or self-care (01) ==
LOC: RADXRMAIN 11:25
PROVIDERS: ATTEND Urology
DX: N28.89 Other specified disorders of kidney and ureter (principal)
CPT/HCPCS: 74000

== ENCOUNTER 2018-01-31 22:33 | Emergency (ER) | payer MEDICARE, OTHER ==
--- NOTE | 2018-01-31 23:24 | XR ---
EXAMINATION TYPE: XR chest 2V DATE OF EXAM: 01/31/2018 COMPARISON: 07/26/2017 HISTORY: Altered mental status TECHNIQUE: Frontal and lateral views of the chest are obtained. FINDINGS: There is no heart failure nor confluent pneumonic infiltrate. Thoracic aorta is atheromato us. There is spurring in the thoracic spine. Costophrenic angles are clear. IMPRESSION: No active cardiopulmonary disease. Atheromatous aorta. Old right-sided healed rib fractu re. There is improved inspiration compared to old exam.
[2018-01-31 23:36] VITALS: RESP 18
--- NOTE | 2018-01-31 23:46 | CT ---
EXAMINATION TYPE: CT brain wo con DATE OF EXAM: 01/31/2018 COMPARISON: 10/21/2016 HISTORY: Prior on synaspe, AMS, visual disturbance, shingles CT DLP: 1040.70 mGycm Automated exposure control for dose reduction was used. FINDINGS: Ventricles of normal size. There is mild hypodensity around the lateral ventricles and more noticeabl e in the occipital lobes. There is no mass effect nor midline shift. There is no sign of intracranial hemorrhage. The calvarium is intact. IMPRESSION: NO ACUTE INTRACRANIAL ABNORMALITY. MILD CHRONIC SMALL VESSEL ISCHEMIA. NO SIGNIFICANT CHANGE.
[2018-02-01 00:02] LABS: Basophils # (A) 0.1 k/uL (0-0.2); Basophils % (A) 0 %; Eosinophils # (A) 0.3 k/uL (0-0.7); Eosinophils % (A) 2 %; HCT 44.9 % (34.0-46.0); HGB 14.6 gm/dL (11.4-16.0); Lymphocytes # (A) 0.9 k/uL (1.0-4.8); Lymphocytes % (A) 6 %; MCH 28.7 pg (25.0-35.0); MCHC 32.4 g/dL (31.0-37.0); MCV 88.4 fL (80.0-100.0); Monocytes # (A) 0.5 k/uL (0-1.0); Monocytes % (A) 4 %; Neutrophils % (A) 87 %; Platelet Count 120 k/uL (150-450); RBC 5.08 m/uL (3.80-5.40); RDW 14.6 % (11.5-15.5); WBC 13.7 k/uL (3.8-10.6)
[2018-02-01 00:14] LABS: INR 1.1 (<1.2); Partial Thromboplastin Time 23.7 sec (22.0-30.0); Prothrombin Time 10.3 sec (9.0-12.0)
[2018-02-01 00:16] LABS: ALT 25 U/L (9-52); AST 20 U/L (14-36); Albumin 3.9 g/dL (3.5-5.0); Alkaline Phosphatase 87 U/L (38-126); Anion Gap 9 mmol/L; Blood Urea Nitrogen 19 mg/dL (7-17); Calcium 10.5 mg/dL (8.4-10.2); Carbon Dioxide 28 mmol/L (22-30); Chloride 105 mmol/L (98-107); Glucose 112 mg/dL (74-99); Potassium 4.3 mmol/L (3.5-5.1); Sodium 142 mmol/L (137-145); Total Bilirubin 0.6 mg/dL (0.2-1.3)
[2018-02-01 00:21] LABS: Creatine Kinase 23 U/L (30-135)
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
[2018-02-01 00:34] LABS: Creatine Kinase MB 0.4 ng/mL (0.0-2.4); Troponin I <0.012 ng/mL (0.000-0.034)
[2018-02-01 00:57] VITALS: BP 146/70; PULSE 70; TEMP 98.4
== END 2018-02-01 01:07 | disposition home or self-care (01) ==
LOC: EC 22:33
DX: H53.8 Other visual disturbances (principal); E11.59 Type 2 diabetes mellitus with other circulatory complications; I50.9 Heart failure, unspecified; I11.0 Hypertensive heart disease with heart failure; E78.5 Hyperlipidemia, unspecified; F32.9 Major depressive disorder, single episode, unspecified; F41.9 Anxiety disorder, unspecified; I25.10 Atherosclerotic heart disease of native coronary artery without angina pectoris; G47.33 Obstructive sleep apnea (adult) (pediatric); M19.90 Unspecified osteoarthritis, unspecified site; Z79.4 Long term (current) use of insulin; Z79.899 Other long term (current) drug therapy; Z79.82 Long term (current) use of aspirin; Z79.891 Long term (current) use of opiate analgesic; Z86.73 Personal history of transient ischemic attack (TIA), and cerebral infarction without residual deficits
CPT/HCPCS: 36415; 70450; 71046; 80053; 82550; 82553; 84484; 85025; 85610; 85730; 93005; 99285

== ENCOUNTER 2018-09-03 17:10 | Emergency (ER) | payer MEDICARE, OTHER ==
[2018-09-03] MEDS ORDERED: SODIUM CHLORIDE 0.9% 1,000 ML IV STA (17:37)
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
[2018-09-03 18:20] LABS: Basophils % (A) 1 %; Eosinophils # (A) 0.3 k/uL (0-0.7); Eosinophils % (A) 4 %; HCT 45.7 % (34.0-46.0); HGB 14.7 gm/dL (11.4-16.0); Hypochromasia Slight; Lymphocytes % (A) 11 %; MCH 28.4 pg (25.0-35.0); MCHC 32.2 g/dL (31.0-37.0); MCV 88.2 fL (80.0-100.0); Mean Platelet Volume 7.2; Monocytes # (A) 0.5 k/uL (0-1.0); Monocytes % (A) 6 %; Neutrophils # (A) 7.2 k/uL (1.3-7.7); Neutrophils % (A) 79 %; Platelet Count 149 k/uL (150-450); RBC 5.18 m/uL (3.80-5.40); RDW 14.8 % (11.5-15.5); WBC 9.2 k/uL (3.8-10.6)
[2018-09-03 19:02] LABS: Partial Thromboplastin Time 22.3 sec (22.0-30.0)
[2018-09-03 19:16] LABS: Albumin 3.3 g/dL (3.5-5.0); Magnesium 1.9 mg/dL (1.6-2.3); Phosphorus 3.7 mg/dL (2.5-4.5); Potassium 5.3 mmol/L (3.5-5.1); Total Bilirubin 0.5 mg/dL (0.2-1.3); Total Protein 6.4 g/dL (6.3-8.2)
[2018-09-03 19:27] LABS: Appearance,Urine Turbid (Clear); Bilirubin,Urine Negative (Negative); Blood,Urine Small (Negative); Color,Urine Yellow; Glucose,Urine (UA) Negative (Negative); Ketones,Urine Negative (Negative); Leukocyte Esterase,Urine Large (Negative); Mucus,Urine Few /hpf; Nitrite,Urine Negative (Negative); PH, Urine 5.5 (5.0-8.0); Protein,Urine 1+ (Negative); RBC,Urine 5 /hpf (0-5); Specific Gravity,Urine 1.019 (1.001-1.035); Urobilinogen,Urine <2.0 mg/dL (<2.0); WBC,Urine >182 /hpf (0-5)
[2018-09-03] MEDS ORDERED: cefTRIAXone 2,000 MG in SODIUM CHLORIDE 0.9% 100 ML IVPB STA (19:42)
[2018-09-03 19:44] LABS: Creatine Kinase <20 U/L (30-135)
[2018-09-03 19:57] LABS: Creatine Kinase MB 0.4 ng/mL (0.0-2.4); Troponin I <0.012 ng/mL (0.000-0.034)
[2018-09-03] MEDS ORDERED: NITROFURANTOIN MONOHYD/M-CRYST 100 MG CAP PO STA (20:49)
[2018-09-03 21:12] VITALS: RESP 20
[2018-09-03 22:30] VITALS: BP 133/78; PULSE 68
== END 2018-09-03 22:30 | disposition home or self-care (01) ==
LOC: EC 17:10
DX: N39.0 Urinary tract infection, site not specified (principal); R55 Syncope and collapse; E86.0 Dehydration; I25.10 Atherosclerotic heart disease of native coronary artery without angina pectoris; I11.0 Hypertensive heart disease with heart failure; I50.9 Heart failure, unspecified; E11.9 Type 2 diabetes mellitus without complications; E78.5 Hyperlipidemia, unspecified; M19.90 Unspecified osteoarthritis, unspecified site; M10.9 Gout, unspecified; F41.9 Anxiety disorder, unspecified; F32.9 Major depressive disorder, single episode, unspecified; G47.33 Obstructive sleep apnea (adult) (pediatric); Z99.89 Dependence on other enabling machines and devices; Z86.73 Personal history of transient ischemic attack (TIA), and cerebral infarction without residual deficits; Z95.5 Presence of coronary angioplasty implant and graft; Z79.4 Long term (current) use of insulin; Z79.1 Long term (current) use of non-steroidal anti-inflammatories (NSAID); Z79.82 Long term (current) use of aspirin; Z79.899 Other long term (current) drug therapy
CPT/HCPCS: 99285 ×2; 96365 ×2; 96366 ×3; 96360 ×2; 96361 ×4; 36415; 93005; 80053; 82550; 82553; 83605; 83735; 84100; 84484; 85025; 85610; 85730; 81001; 87086; J0696

== ENCOUNTER 2019-02-11 15:48 | Inpatient (IN) | payer MEDICARE, OTHER ==
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
[2019-02-11 17:04] LABS: Appearance,Urine Clear (Clear); Bilirubin,Urine Negative (Negative); Blood,Urine Negative (Negative); Color,Urine Light Yellow; Glucose,Urine (UA) Negative (Negative); Ketones,Urine Negative (Negative); Leukocyte Esterase,Urine Negative (Negative); Nitrite,Urine Negative (Negative); Protein,Urine Negative (Negative); Specific Gravity,Urine 1.012 (1.001-1.035); Urobilinogen,Urine <2.0 mg/dL (<2.0)
[2019-02-11 17:15] LABS: Basophils # (A) 0.1 k/uL (0-0.2); Basophils % (A) 1 %; Eosinophils # (A) 0.6 k/uL (0-0.7); Eosinophils % (A) 7 %; HCT 41.4 % (34.0-46.0); HGB 12.8 gm/dL (11.4-16.0); Hypochromasia Slight; Lymphocytes # (A) 1.3 k/uL (1.0-4.8); Lymphocytes % (A) 16 %; MCHC 30.9 g/dL (31.0-37.0); MCV 87.5 fL (80.0-100.0); Mean Platelet Volume 7.6; Monocytes # (A) 0.5 k/uL (0-1.0); Monocytes % (A) 6 %; Neutrophils # (A) 5.7 k/uL (1.3-7.7); Neutrophils % (A) 69 %; Platelet Count 128 k/uL (150-450); RBC 4.73 m/uL (3.80-5.40); RDW 15.5 % (11.5-15.5); WBC 8.3 k/uL (3.8-10.6)
[2019-02-11 17:23] LABS: ALT 30 U/L (9-52); AST 22 U/L (14-36); Albumin 3.2 g/dL (3.5-5.0); Alkaline Phosphatase 103 U/L (38-126); Anion Gap 6 mmol/L; Blood Urea Nitrogen 21 mg/dL (7-17); Calcium 9.7 mg/dL (8.4-10.2); Carbon Dioxide 28 mmol/L (22-30); Chloride 105 mmol/L (98-107); Glucose 175 mg/dL (74-99); Potassium 4.5 mmol/L (3.5-5.1); Sodium 139 mmol/L (137-145); Total Bilirubin 0.4 mg/dL (0.2-1.3); Total Protein 6.1 g/dL (6.3-8.2)
[2019-02-11] MEDS ORDERED: NALOXONE 0.4 MG/ML 1 ML VIAL IV PRN (19:25)
[2019-02-11] MEDS ORDERED: ACETAMINOPHEN TAB 325 MG TAB PO PRN (19:25)
[2019-02-11] MEDS ORDERED: MAGNESIUM HYDROXIDE 2,400 MG/10 ML CUP PO PRN (19:30)
[2019-02-11] MEDS ORDERED: traMADol 50 MG TAB PO PRN (19:30)
[2019-02-11] MEDS ORDERED: ARTIFICIAL TEARS-HYPROMELLOSE DROPS 15 ML BTL BOTH EYES PRN (19:30)
[2019-02-11] MEDS ORDERED: BENZOCAINE/MENTHOL SPRAY 1 GM/SPRAY AEROSOL TOPICAL PRN (19:30)
[2019-02-11] MEDS ORDERED: ONDANSETRON 4 MG TAB PO PRN (19:30)
[2019-02-11] MEDS: SODIUM CHLORIDE 0.9% 1,000 ML IV SCH (20:00)
[2019-02-11] MEDS ORDERED: LORazepam 2 MG/ML INJ IV PRN (20:08)
[2019-02-11] MEDS ORDERED: IOPAMIDOL-300 CONTRAST 30 ML VIAL (ORAL USE) PO PRN (20:09)
[2019-02-11] MEDS ORDERED: TEMAZEPAM 15 MG CAP PO PRN (20:09)
[2019-02-11] MEDS: HYDROmorphone 0.5 MG/0.5 ML SYRINGE IVP PRN (20:21)
--- NOTE | 2019-02-11 20:46 | HP ---
HISTORY AND PHYSICAL CHIEF COMPLAINTS: Lower abdominal pain as well as pelvic pain. HISTORY OF PRESENT ILLNESS: This 83-year-old woman with a past medical history of multiple medical problems, including CAD, history of CHF, CVA, TIA, diabetes mellitus, hypertension, hyperlipidemia, sleep apnea, history of CAD, stent, being followed by Dr. Vann in the outpatient setting, has been living at [facility] for the last one year because of decreased functional capacity. The patient apparently was complaining of severe lower abdominal and private area pain and the patient was moaning and apparently yelling, and the patient was taken to [facility] and admitted for further evaluation and treatment. Patient has significant candidiasis. There is no history of discharge. No history of any bleeding. No history of any fever, rigor or chills. A detailed history could not be taken; the patient is mildly confused. Most of the history is taken from my discussion with staff and discussion with the ER physician as well as discussion with 2 daughters at the bedside. PAST MEDICAL HISTORY: 1. History of CAD. 2. CHF. 3. CVA, TIA. 4. Diabetes mellitus, type 2. 5. Hypertension. 6. Hyperlipidemia. 7. History of DJD. 8. History of pneumonia. 9. History of TIA. 10.History of CAD with stent. HOME MEDICATIONS: Home medications are reviewed. They include: 1. Zofran 4 mg q.8 p.r.n. 2. Ultram 50 mg q.6. 3. VESIcare 5 mg p.o. daily. 4. Vitamin D3 1000 daily. 5. K-Dur 10 mEq p.o. q.48 hours. 6. Multivitamins 1 p.o. daily. 7. Reglan 5 mg p.o. at bedtime. 8. Paxil 20 mg p.o. daily. 9. Omeprazole 20 mg p.o. daily. 10.Artificial Tears 2 drops at bedtime. 11.Namenda 10 mg p.o. b.i.d. 12.Sarna lotion topically b.i.d. 13.Milk of Magnesia 2.4 daily p.r.n. 14.Melatonin 5 mg at bedtime. 15.Imdur 60 mg p.o. daily. 16.Levemir 20 units subcutaneously at bedtime. 17.Lasix 20 mg p.o. daily. 18.Diflucan 100 mg p.o. daily. 19.Colace 100 mg p.o. b.i.d. 20.Desitin (zinc oxide) 1 application b.i.d. 21.Voltaren 2 grams b.i.d. 22.Dermoplast spray 2 applications b.i.d. 23.Claritin 10 mg daily. 24.Lipitor 10 mg at bedtime. 25.Ecotrin 81 mg p.o. daily. 26.Zyloprim 100 mg p.o. daily. 27.Tylenol 650 t.i.d. and p.r.n. ALLERGIES: NONE. Family history, social history, review of systems could not be taken at length because of patient confusion. The patient has no history of smoking or alcohol intake. PHYSICAL EXAMINATION: Patient is conscious, confused. Pulse 77, blood pressure 129/75, respiration 18, temperature 98 degrees, pulse ox 97% on room air. HEENT: Conjunctivae normal. Oral mucosa moist. NECK: No jugular venous distention. No carotid bruit. No lymph node enlargement. CARDIOVASCULAR SYSTEM: S1, S2 muffled. RESPIRATORY SYSTEM: Breath sounds diminished at the bases. A few scattered rhonchi. No crackles. ABDOMEN: Soft. Mild diffuse distention present. No guarding. No mass palpable. LEGS: Minimal edema. NERVOUS SYSTEM: Higher functions as mentioned earlier. Moves all 4 limbs. No focal motor or sensory deficit. LYMPHATICS: No lymph node palpable in neck, axillae or groin. SKIN: There is significant candidiasis. On examination of the external genitalia, some erythema, induration, some tenderness also present. No discharge noted. Evidence of some cellulitis also present. LABS: WBC 8.3, hemoglobin 12.8. Sodium 139, potassium 4.4. ASSESSMENT: 1. Lower abdominal pain and pelvic pain for evaluation. 2. Severe cellulitis. 3. Fungal intertrigo. 4. Thrombocytopenia. 5. History of congestive heart failure. 6. History of coronary artery disease. 7. Diabetes mellitus, type 2. 8. Hypertension. 9. Hyperlipidemia. 10.Degenerative joint disease. 11.History of pneumonia. 12.History of sleep apnea. 13.History of syncope. 14.History of bradycardia. 15.History of gait dysfunction. 16.History of coronary artery disease, stent. 17.History of anxiety, depression. RECOMMENDATIONS AND DISCUSSION: In this 83-year-old woman who presented with multiple medical problems, we will monitor the patient closely, continue the current medication. Etiology of the patient's current symptomatology is unknown at this time. The patient is yelling because of severe pain apparently. I would start symptomatic treatment. I would also recommend a CT scan of the abdomen and pelvis. Otherwise, EMPLOYMENT SECURITY OFFICER has been consulted. Resume the home medications. DVT prophylaxis. Empiric antibiotics and antifungals. Prognosis guarded because of multiple complex medical issues. Further recommendations to follow. A copy of this dictation is being forwarded to Dr. Vann, who is the primary physician. Discussed with the family, who understands and agrees. MMODL / IJN: [id number] /
[2019-02-11 21:35] LABS: Glucose,Whole Blood 150 mg/dL (75-99)
[2019-02-11] MEDS: DOCUSATE 100 MG CAP PO SCH (23:16)
[2019-02-11] MEDS: HEPARIN SODIUM,PORCINE 5,000 UNIT/ML 1 ML VIAL SQ SCH (23:17)
[2019-02-11] MEDS: BENZOCAINE/MENTHOL SPRAY 1 GM/SPRAY AEROSOL TOPICAL SCH (23:17)
[2019-02-11] MEDS: ATORVASTATIN 10 MG TAB PO SCH (23:17)
[2019-02-11] MEDS: DICLOFENAC SODIUM GEL 100 GM TUBE TOPICAL SCH (23:18)
--- NOTE | 2019-02-11 23:18 | CT ---
EXAM: CT Abdomen and Pelvis Without Intravenous Contrast CLINICAL HISTORY: ITS.REASON CT Reason: Pain TECHNIQUE: Axial computed tomography images of the abdomen and pelvis without intravenous contrast. CTDI is 38.6 mGy and DLP is 1972.3 mGy-cm. This CT exam was performed using one or more of the following dose reduction techniques: automated exposure control, adjustment of the mA and/or kV according to patient size, and/or use of iterative reconstruction technique. Coronal and sagittal reformatted images were created and reviewed. COMPARISON: 07/24/17 FINDINGS: Lung bases: Lower lung airspace opacities favoring atelectasis. Mediastinum: Possible small hiatal hernia. ABDOMEN: Liver: Peripheral scalloping and nodularity of the liver which could suggest cirrhotic changes. Gallbladder and bile ducts: Unremarkable. No calcified stones. No ductal dilation. Pancreas: Unremarkable. No ductal dilation. Spleen: Unremarkable. No splenomegaly. Adrenals: Unremarkable. No mass. Kidneys and ureters: Bilateral renal stones. There is a stone projecting into the right renal pelvis with slight regional urothelial thickening measuring 6 mm, without significant upstream calyceal distention or current evidence for obstructive uropathy. Stomach and bowel: Borderline dilated loops of small bowel with fluid levels in the lower abdomen though without abrupt transition. Slight fat stranding adjacent to the rectosigmoid colon which could be related to scarring or mild reactive changes. Diverticulosis is present though findings do not favor focal diverticulitis. PELVIS: Appendix: No evidence for appendicitis. Bladder: Mild urinary bladder wall thickening which could be due to underdistention. No stones. Reproductive: Hysterectomy. ABDOMEN and PELVIS: Intraperitoneal space: Unremarkable. No free air. No significant fluid collection. Bones/joints: No acute fracture. No dislocation. Multilevel degenerative disc changes with disc space height loss and osteophytosis. Chronic subtle anterolisthesis L3 on L4 and L4-L5. Degenerative joint changes of the bilateral hips and sacral iliac joints. Osteopenia. Soft tissues: Subcutaneous fat stranding and skin thickening along the leftward lateral abdomen. Edema also noted within the bilateral gluteal subcutaneous tissues. Injection granulomas are noted. Vasculature: Diffuse atherosclerosis of the aorta. Characterization limited on noncontrast imaging. Multivessel coronary artery calcifications. No abdominal aortic aneurysm. Lymph nodes: Prominent right axillary lymph node measuring 15 mm short axis caliber. IMPRESSION: 1. Bilateral nonobstructing nephrolithiasis. Notable 6 mm stone projecting into the right renal pelvis with slight urothelial thickening which could be due to scarring or mild reactive changes. There is also nonspecific slight urinary bladder wall thickening. Correlate to exclude urinary tract infection. 2. Slight pericolonic fat stranding within the rectosigmoid segment, possibly related to scarring though early reactive/inflammatory changes could be considered if in the appropriate clinical setting. Colonic diverticulosis is present without definitive evidence for focal diverticulitis. 3. Skin thickening with underlying fat stranding/edema in the leftward lower lateral abdomen. Query cellulitis. Nonspecific mild subcutaneous edema also noted within the gluteal regions. 4. Other nonacute and incidental findings as noted above.
[2019-02-11] MEDS: ceFAZolin IN SWFI 2 GM/20 ML SYRINGE IVP SCH (23:19)
[2019-02-11] MEDS: INSULIN ASPART (NovoLOG) 100 UNIT/ML VIAL SQ SCH (23:20)
[2019-02-11] MEDS: MEMANTINE 10 MG TAB PO SCH (23:56)
[2019-02-11] MEDS: INSULIN DETEMIR (LEVEMIR) 100 UNIT/ML SYR SQ SCH (23:56)
[2019-02-11] MEDS: METOCLOPRAMIDE 5 MG TAB PO SCH (23:57)
[2019-02-11] MEDS: NYSTATIN 100,000 UNIT/GM OINT 30 GM TUBE TOPICAL SCH (23:57)
[2019-02-12] MEDS: MELATONIN 5 MG TABLET PO SCH ×2 (01:32→20:34)
[2019-02-12] MEDS: HYDROmorphone 0.5 MG/0.5 ML SYRINGE IVP PRN ×5 (01:32→20:59)
[2019-02-12] MEDS: ceFAZolin IN SWFI 2 GM/20 ML SYRINGE IVP SCH ×3 (06:06→22:11)
[2019-02-12] MEDS: LORATADINE 10 MG TAB PO SCH (06:06)
[2019-02-12] MEDS: PANTOPRAZOLE 40 MG TABLET PO SCH (06:06)
[2019-02-12 07:02] LABS: Basophils % (A) 1 %; Eosinophils # (A) 0.6 k/uL (0-0.7); Eosinophils % (A) 8 %; HCT 41.1 % (34.0-46.0); HGB 13.2 gm/dL (11.4-16.0); Hypochromasia Slight; Lymphocytes # (A) 1.4 k/uL (1.0-4.8); Lymphocytes % (A) 19 %; MCH 27.8 pg (25.0-35.0); MCHC 32.2 g/dL (31.0-37.0); MCV 86.3 fL (80.0-100.0); Mean Platelet Volume 6.9; Monocytes # (A) 0.4 k/uL (0-1.0); Monocytes % (A) 6 %; Neutrophils # (A) 4.8 k/uL (1.3-7.7); Neutrophils % (A) 66 %; Platelet Count 121 k/uL (150-450); RBC 4.76 m/uL (3.80-5.40); RDW 15.5 % (11.5-15.5); WBC 7.4 k/uL (3.8-10.6)
[2019-02-12 07:11] LABS: Anion Gap 6 mmol/L; Blood Urea Nitrogen 17 mg/dL (7-17); Calcium 9.4 mg/dL (8.4-10.2); Carbon Dioxide 30 mmol/L (22-30); Chloride 104 mmol/L (98-107); Glucose 115 mg/dL (74-99); Potassium 4.6 mmol/L (3.5-5.1); Sodium 140 mmol/L (137-145)
[2019-02-12] MEDS ORDERED: PANTOPRAZOLE 40 MG TABLET PO SCH (07:30)
[2019-02-12 07:33] LABS: Glucose,Whole Blood 112 mg/dL (75-99)
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
[2019-02-12] MEDS: INSULIN ASPART (NovoLOG) 100 UNIT/ML VIAL SQ SCH ×4 (09:05→20:34)
--- NOTE | 2019-02-12 09:13 | XR ---
EXAMINATION TYPE: XR chest 1V portable DATE OF EXAM: 02/12/2019 HISTORY: chf. REFERENCE: Previous study dated 01/31/2018. FINDINGS: The heart is enlarged. There is vascular congestion. I could not exclude subtle interstitia l change. I suspect small, bilateral effusions. IMPRESSION: SUBTLE FINDINGS OF CONGESTIVE HEART FAILURE.
[2019-02-12] MEDS: SODIUM CHLORIDE 0.9% 1,000 ML IV SCH ×2 (09:53→21:42)
[2019-02-12] MEDS: ALLOPURINOL 100 MG TAB PO SCH (09:54)
[2019-02-12] MEDS: CHOLECALCIFEROL 1,000 UNIT TAB PO SCH (09:54)
[2019-02-12] MEDS: FUROSEMIDE 20 MG TAB PO SCH (09:54)
[2019-02-12] MEDS: POTASSIUM CHLORIDE ER 10 MEQ TAB.ER.PRT PO SCH (09:54)
[2019-02-12] MEDS: MULTIVITAMINS, THERA 1 EACH TAB PO SCH (09:54)
[2019-02-12] MEDS: DOCUSATE 100 MG CAP PO SCH ×2 (09:54→20:38)
[2019-02-12] MEDS: ASPIRIN 81 MG PO SCH (09:54)
[2019-02-12] MEDS: BENZOCAINE/MENTHOL SPRAY 1 GM/SPRAY AEROSOL TOPICAL SCH ×2 (09:54→20:37)
[2019-02-12] MEDS: FLUCONAZOLE 100 MG TAB PO SCH (09:55)
[2019-02-12] MEDS: DICLOFENAC SODIUM GEL 100 GM TUBE TOPICAL SCH ×2 (09:55→20:33)
[2019-02-12] MEDS: HEPARIN SODIUM,PORCINE 5,000 UNIT/ML 1 ML VIAL SQ SCH ×2 (09:56→20:34)
[2019-02-12] MEDS: MEMANTINE 10 MG TAB PO SCH ×2 (09:57→20:34)
[2019-02-12] MEDS: ISOSORBIDE MONONITRATE ER 60 MG TAB.ER.24H PO SCH (09:57)
[2019-02-12] MEDS: NYSTATIN 100,000 UNIT/GM OINT 30 GM TUBE TOPICAL SCH ×2 (09:58→14:24)
[2019-02-12] MEDS: PARoxetine 20 MG TAB PO SCH (09:58)
[2019-02-12] MEDS: TROSPIUM CHLORIDE 20 MG TABLET PO SCH (09:59)
[2019-02-12] MEDS: HYDROcodone/APAP 5-325MG 1 EACH TAB PO PRN ×2 (10:19→17:44)
[2019-02-12 11:02] LABS: Glucose,Whole Blood 101 mg/dL (75-99)
--- NOTE | 2019-02-12 13:20 | PN ---
PROGRESS NOTE DATE OF SERVICE: 02/12/2019 This is an 83-year-old woman who was admitted with significant pain and rash and possible cellulitis, also complaining of abdominal pain. The patient is apparently The patient is followed by CUSTOMER RELATIONSHIP SPECIALIST and no specific reasons for any acute CUSTOMER RELATIONSHIP SPECIALIST pathology per CUSTOMER RELATIONSHIP SPECIALIST. The CAT scan of the abdomen also showed multiple abnormalities including possible bilateral nonobstructive nephrolithiasis and as well as pericolonic fat stranding also was also noted. There is no history of fever or rigors. PAST MEDICAL HISTORY: Reviewed. REVIEW OF SYSTEMS: CARDIOVASCULAR: No angina. RESPIRATION: as mentioned earlier. GI: As mentioned earlier. : As mentioned earlier. NERVOUS SYSTEM: No focal deficits. CURRENT MEDICATIONS: Reviewed and include: 1. Tylenol 650 q.6 p.r.n. 2. [place] 5 mg. 3. Zyloprim 100 mg p.o. daily. 4. Aspirin 81 mg. 5. Lipitor 10 mg. 6. Kefzol. 7. Vitamin D. 8. Colace. 9. Lasix. 10.Heparin subcu b.i.d. 11.Dilaudid. 12.NovoLog scale. 13.Levemir. 14.Imdur. 15.Claritin. 16.Ativan p.r.n. 17.Melatonin. 18.Reglan. 19.Multivitamins. 20.Narcan. 21.Mycostatin. 22.Zofran. 23.Protonix. 24.Paxil. 25.Restoril. 26.Ultram. 27.Sanctura. PHYSICAL EXAM: Patient is alert, oriented x2. Pulse 70, blood pressure 188/81, respirations 16, temperature 97.2, pulse ox 98% on room air. HEENT: Conjunctivae normal. Oral mucosa moist. NECK: No jugular venous distension. CARDIAC: S1, S2, no murmur. RESPIRATION: Breath sounds diminished at the bases, bilateral scattered rhonchi and no crackles. ABDOMEN: Soft, obese, nontender. No mass palpable. LEGS: No edema, no swelling. NERVOUS SYSTEM: No focal deficits. Examination of the tavia-area erythema, tenderness. LABS: WBC 7.8, hemoglobin 13.2, platelets 121, glucose noted. ASSESSMENT: 1. Severe lower abdominal pain and pelvic pain with possible acute cellulitis. 2. Rule out diverticulitis. 3. Severe cellulitis. 4. Fungal intertrigo multiple locations. 5. Thrombocytopenia. 6. History of congestive heart failure. 7. History of coronary artery disease. 8. Diabetes mellitus type 2. 9. Hypertension. 10.Hyperlipidemia. 11.History of degenerative joint disease. 12.History of pneumonia. 13.History of sleep apnea. 14.History of syncope. 15.History of bradycardia. 16.History of gait dysfunction. 17.History of coronary artery disease, stent. 18.History of anxiety, depression. 19.FULL CODE. RECOMMENDATIONS: In This 83-year-old woman who presented with multiple medical issues, will monitor the patient closely. Continue with the current medications. Will treat the pain aggressively. Patient is currently on Kefzol. Will ask for the cultures and Infectious Disease evaluation. Resume the rest of medications, include DVT prophylaxis. The prognosis guarded because of multiple complex medical issues. Further recommendations to follow. MMALFONSOL / RICON: [id number] / MTDD
[2019-02-12 17:10] LABS: Glucose,Whole Blood 134 mg/dL (75-99)
--- NOTE | 2019-02-12 17:50 | PN ---
PROGRESS NOTE DATE OF SERVICE: 02/12/2019. REASON FOR CONSULTATION: Bilateral groin and breast fold cutaneous candidiasis secondary to cellulitis. HISTORY OF PRESENT ILLNESS: The patient is an 83-year-old female presenting to the ER at [facility] yesterday afternoon with chief complaints of increasing pain in her private area. Apparently, the patient did have a longstanding history of cutaneous candidiasis to the groin fold as well as breast fold area with the ointment that she has been using was not working and hence she presented to the hospital. The patient has been complaining of pain which is mostly sharp in nature 5 to 6 out of 10 and no radiation. Some surrounding swelling and redness. No foul smelling drainage. The patient denies any high-grade fever or any chills. The patient was evaluated by the ER physician. She had no fever on presentation. White count was normal. The patient was started on nystatin cream to the bilateral groin fold area and Cefazolin and admitted to the hospital. Infectious disease was consulted for further recommendations regarding antibiotic therapy. REVIEW OF SYSTEMS: Positive points have been mentioned in HPI. Rest of systems are negative. PAST MEDICAL HISTORY: Coronary artery disease, heart failure, CVA, TIA, diabetes mellitus, hyperlipidemia, hypertension, osteoarthritis, pneumonia, sleep apnea. PAST SURGICAL HISTORY: PTCA with stent, hysterectomy, bilateral cataract surgery, EGD, colonoscopy, carpal tunnel surgery. SOCIAL HISTORY: No history of smoking, drinking or drug use. FAMILY HISTORY: No pertinent findings were noticed. ALLERGIES: No known drug allergies. MEDICATIONS: Include the patient is currently on Tylenol, [place], Zyloprim, aspirin, Lipitor, cefazolin 2 g q.8h. She is on vitamin D3, Voltaren gel, Diflucan, Lasix, heparin, Dilaudid, NovoLog, Levemir, Imdur, Claritin, Ativan, Melatonin, and Namenda, Reglan, Narcan Zofran, Paxil, Restoril and Ultram. PHYSICAL EXAMINATION: Blood pressure is 188/81 with a pulse of 70. Temperature 97.5. She is 96% on room air. General description is an elderly female, lying in bed in no distress. No tachypnea or accessory muscles of respiration use. HEENT: Shows no pallor or scleral icterus. Oral mucosa membranes are dry. No pharyngeal erythema or thrush. Neck: Trachea central. No thyromegaly. Lungs unlabored breathing. Clear to auscultation anteriorly. No wheeze or crackles. Heart S1, S2. Regular rate and rhythm. ABDOMEN: Soft, no tenderness. No guarding or rigidity. Extremities some chronic swelling and . Examination of the bilateral groin and the breast folds in the presence of the RN shows extensive cutaneous candidiasis with minimal surrounding cellulitis. Neurologically, patient is awake, alert, oriented times three. Mood and affect normal. LABS: Hemoglobin 13.1, white count 7.4, BUN of 17, creatinine 0.54. UA was negative. DIAGNOSTIC IMPRESSION AND PLAN: 1. Patient with extensive bilateral groin and breast fold area cutaneous candidiasis with secondary cellulitis likely from gram-positive skin juanjo failing outpatient management. 2. The patient with chronic swelling in the legs with chronic changes of necrobiosis clinically doubt lower extremity cellulitis. PLAN: 1. Nystatin powder to the breast fold and the bilateral groin area and in view of extensive cutaneous candidiasis, oral Diflucan 100 mg daily. 2. Cefazolin 2 g q.8 hours should cover for possible cellulitis in the breast fold as well as the groin fold area. 3. We will follow up on the clinical condition and adjust her medications further if needed. Thank you for this consultation. We will follow this patient along with you. MMODL / IJN: [id number] /
[2019-02-12 20:21] LABS: Glucose,Whole Blood 146 mg/dL (75-99)
[2019-02-12] MEDS: METOCLOPRAMIDE 5 MG TAB PO SCH (20:34)
[2019-02-12] MEDS: ATORVASTATIN 10 MG TAB PO SCH (20:34)
[2019-02-12] MEDS: INSULIN DETEMIR (LEVEMIR) 100 UNIT/ML SYR SQ SCH (20:59)
[2019-02-12] MEDS: NYSTATIN 100,000 UNIT/GM POWD 15 GM TOPICAL SCH (21:40)
[2019-02-13] MEDS: HYDROmorphone 0.5 MG/0.5 ML SYRINGE IVP PRN ×5 (01:08→18:25)
[2019-02-13] MEDS: PANTOPRAZOLE 40 MG TABLET PO SCH (05:48)
[2019-02-13] MEDS: ceFAZolin IN SWFI 2 GM/20 ML SYRINGE IVP SCH ×3 (05:48→21:00)
[2019-02-13] MEDS: LORATADINE 10 MG TAB PO SCH (05:48)
[2019-02-13 06:47] LABS: Glucose,Whole Blood 92 mg/dL (75-99)
[2019-02-13 07:12] LABS: Basophils # (A) 0.1 k/uL (0-0.2); Basophils % (A) 1 %; Eosinophils # (A) 0.5 k/uL (0-0.7); Eosinophils % (A) 7 %; HCT 39.8 % (34.0-46.0); HGB 12.6 gm/dL (11.4-16.0); Hypochromasia Moderate; Lymphocytes # (A) 1.4 k/uL (1.0-4.8); Lymphocytes % (A) 22 %; MCH 27.9 pg (25.0-35.0); MCHC 31.6 g/dL (31.0-37.0); MCV 88.3 fL (80.0-100.0); Mean Platelet Volume 6.5; Monocytes # (A) 0.4 k/uL (0-1.0); Monocytes % (A) 6 %; Neutrophils # (A) 3.9 k/uL (1.3-7.7); Neutrophils % (A) 63 %; Platelet Count 136 k/uL (150-450); RBC 4.51 m/uL (3.80-5.40); RDW 15.7 % (11.5-15.5); WBC 6.2 k/uL (3.8-10.6)
[2019-02-13 07:19] LABS: Potassium 4.2 mmol/L (3.5-5.1)
[2019-02-13 07:20] LABS: Anion Gap 6 mmol/L; Blood Urea Nitrogen 13 mg/dL (7-17); Calcium 9.3 mg/dL (8.4-10.2); Carbon Dioxide 28 mmol/L (22-30); Chloride 106 mmol/L (98-107); Glucose 89 mg/dL (74-99); Sodium 140 mmol/L (137-145)
[2019-02-13] MEDS: HYDROcodone/APAP 5-325MG 1 EACH TAB PO PRN ×3 (07:48→21:28)
[2019-02-13] MEDS: INSULIN ASPART (NovoLOG) 100 UNIT/ML VIAL SQ SCH ×4 (07:54→21:22)
[2019-02-13] MEDS: SODIUM CHLORIDE 0.9% 1,000 ML IV SCH ×2 (09:02→21:02)
[2019-02-13] MEDS: MULTIVITAMINS, THERA 1 EACH TAB PO SCH (09:04)
[2019-02-13] MEDS: FUROSEMIDE 20 MG TAB PO SCH (09:04)
[2019-02-13] MEDS: ASPIRIN 81 MG PO SCH (09:04)
[2019-02-13] MEDS: ALLOPURINOL 100 MG TAB PO SCH (09:05)
[2019-02-13] MEDS: HEPARIN SODIUM,PORCINE 5,000 UNIT/ML 1 ML VIAL SQ SCH ×2 (09:05→20:59)
[2019-02-13] MEDS: DOCUSATE 100 MG CAP PO SCH ×2 (09:05→20:59)
[2019-02-13] MEDS: CHOLECALCIFEROL 1,000 UNIT TAB PO SCH (09:05)
[2019-02-13] MEDS: DICLOFENAC SODIUM GEL 100 GM TUBE TOPICAL SCH ×2 (09:06→21:01)
[2019-02-13] MEDS: FLUCONAZOLE 100 MG TAB PO SCH (09:06)
[2019-02-13] MEDS: BENZOCAINE/MENTHOL SPRAY 1 GM/SPRAY AEROSOL TOPICAL SCH ×2 (09:06→21:00)
[2019-02-13] MEDS: MEMANTINE 10 MG TAB PO SCH ×2 (09:07→20:59)
[2019-02-13] MEDS: NYSTATIN 100,000 UNIT/GM POWD 15 GM TOPICAL SCH ×2 (09:07→20:59)
[2019-02-13] MEDS: PARoxetine 20 MG TAB PO SCH (09:07)
[2019-02-13] MEDS: ISOSORBIDE MONONITRATE ER 60 MG TAB.ER.24H PO SCH (09:07)
[2019-02-13] MEDS: TROSPIUM CHLORIDE 20 MG TABLET PO SCH (09:07)
[2019-02-13 11:18] LABS: Glucose,Whole Blood 90 mg/dL (75-99)
[2019-02-13] MEDS: IOPAMIDOL-300 CONTRAST 30 ML VIAL (ORAL USE) PO PRN ×2 (12:06→13:07)
[2019-02-13] MEDS: amLODIPine 10 MG TAB PO SCH (12:36)
--- NOTE | 2019-02-13 12:48 | PN ---
PROGRESS NOTE DATE OF SERVICE: 02/13/2019 This 83-year-old woman who was admitted with severe lower abdominal pelvic pain with possible acute cellulitis, also had some abdominal distention. The patient is complaining of severe pain. Patient yelling out and the patient is on pain medications. [employer] consultation has been done. CT scan of the abdomen was also done. PAST MEDICAL HISTORY: Reviewed. REVIEW OF SYSTEMS: CARDIOVASCULAR: No angina. RESPIRATORY: No cough. GI: As mentioned earlier. : No dysuria. NERVOUS SYSTEM: No numbness or weakness. CURRENT MEDICATIONS: 1. Tylenol 650 q.6h p.r.n. 2. Jber 5 mg q.6h p.r.n. 3. Zyloprim 100 mg. 4. Artificial Tears. 5. Aspirin 81 mg daily. 6. Lipitor 10 mg q.h.s. 7. Kefzol 2 g IV q.8h. 8. Vitamin D3 1000 daily. 9. Colace 100 mg p.o. b.i.d. 10.Diflucan 100 mg daily. 11.Lasix 20 mg daily. 12.Heparin 5 subcu b.i.d. 13.Novolin 20 subcu b.i.d. 14.Imdur 60 mg. 15.Claritin 10 mg daily. 16.Ativan p.r.n. 17.Milk of magnesium. 18.Melatonin 5 mg q.h.s. 19.Namenda 10 mg p.o. b.i.d. 20.Reglan. 21.Multivitamins 1 p.o. daily. 22.Narcan 0.2 q.2h p.r.n. 23.Zofran p.r.n. 24.Protonix 40 mg. 25.Paxil 10 mg p.o. daily. 26.Restoril 15 mg q.h.s. 27.Ultram 50 mg q.6h p.r.n. 28.Sanctura 20 mg p.o. daily. PHYSICAL EXAM: Patient is conscious, oriented x1. Pulse 84, blood pressure 200/94, respirations 16, temperature 98.2, pulse ox 94% on room air. HEENT: Conjunctivae normal. Oral mucosa moist. Neck is no jugular venous distention. No carotid bruit. No lymph node enlargement. CARDIOVASCULAR: S1, S2. RESPIRATORY: Breath sounds diminished in the bases. A few scattered rhonchi. No crackles. ABDOMEN: Soft. Mild diffuse distention present. Mild diffuse tenderness present. No guarding. No rigidity. LEGS: No edema. NERVOUS SYSTEM: Mild diffuse weakness. SKIN: Diffuse intertrigo and cellulitis also present in the both groin and perineal area and under the breast also. LABS: WBC 6.2, hemoglobin 12.6. ASSESSMENT: 1. Severe lower abdominal pain with severe pelvic pain, possible acute cellulitis, rule out intraabdominal pathology. 2. Rule out diverticulitis. 3. Severe cellulitis. 4. Fungal intertrigo with multiple occasions. 5. Thrombocytopenia. 6. History of congestive heart failure. 7. History of coronary artery disease. 8. Diabetes mellitus type 2. 9. Hypertension. 10.Hyperlipidemia. 11.History of degenerative joint disease. 12.History of pneumonia. 13.History of sleep apnea. 14.History of syncope. 15.History of bradycardia. 16.History of gait dysfunction. 17.History of coronary artery disease, stent. 18.History of anxiety, depression. 19.FULL CODE. RECOMMENDATIONS AND DISCUSSION: I recommend to continue current management and symptomatic treatment. I recommend surgical evaluation. Otherwise, I would recommend flatplate of the abdomen. Continue the antibiotics. Continue the rest of medications. Symptomatic treatment to be continued. The patient also had some elevated blood pressure. I would add Norvasc to the current regimen and continue to monitor. See orders for details. Further recommendations to follow. MMODL / IJN: [id number] /
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
--- NOTE | 2019-02-13 14:38 | CT ---
EXAMINATION TYPE: CT abdomen pelvis wo con DATE OF EXAM: 02/13/2019 COMPARISON: 02/11/2019 HISTORY: distention CT DLP: 1169.6 mGycm Automated exposure control for dose reduction was used. TECHNIQUE: Helical acquisition of images was performed from the lung bases through the pelvis. FINDINGS: There is coarse interstitial density at the lung bases. There is small pleural effusion on the left s sarah. There is intact liver and spleen. Bile ducts are not dilated. Stomach is large. There is no evid ence of pancreatic mass. There is no sign of free air. There is oral contrast in the stomach and larg e bowel. Gallbladder is large. Kidneys show no hydronephrosis. There are bilateral renal calcifications up to 7 mm. There is no retr operitoneal adenopathy. There is no ascites. Bladder distends smoothly. There is no free fluid in the pelvis. There is no inguinal hernia. There is no evidence of a bowel obstruction. There are some mil d colonic diverticula without evidence of diverticulitis. There is subcutaneous edema around the abdomen. This is more on the left side. I see no bony destructive process. IMPRESSION: BASILAR MILD PULMONARY INFILTRATES AND ATELECTASIS UNCHANGED. SUBCUTANEOUS EDEMA ON THE LEFT SIDE MOR E THAN THE RIGHT APPEARS SLIGHTLY WORSE THAN RECENT EXAM. NO DISCRETE DRAINABLE FLUID COLLECTION. THI S IS CONSISTENT WITH CELLULITIS. NONOBSTRUCTING RENAL CALCULI.
[2019-02-13 17:03] LABS: Glucose,Whole Blood 86 mg/dL (75-99)
[2019-02-13 20:07] LABS: Glucose,Whole Blood 102 mg/dL (75-99)
[2019-02-13] MEDS: ATORVASTATIN 10 MG TAB PO SCH (20:59)
[2019-02-13] MEDS: METOCLOPRAMIDE 5 MG TAB PO SCH (20:59)
[2019-02-13] MEDS: MELATONIN 5 MG TABLET PO SCH (20:59)
[2019-02-13] MEDS: INSULIN DETEMIR (LEVEMIR) 100 UNIT/ML SYR SQ SCH (21:00)
--- NOTE | 2019-02-13 22:36 | PN ---
PROGRESS NOTE DATE OF SERVICE: 02/13/2019 REASON FOR FOLLOWUP: Bilateral groin and breast fold area cutaneous candidiasis with a question of secondary cellulitis. INTERVAL HISTORY: The patient is currently afebrile. The patient is breathing comfortably. Still complaining of pain to the groin area. No nausea, vomiting, or any diarrhea reported. PHYSICAL EXAMINATION: Blood pressure 149/70 with a pulse of 95, temperature 99.8. She is 94% on room air. General description is an elderly female lying in bed in no distress. Respiratory system: Unlabored breathing, clear to auscultation anteriorly. Heart S1, S2. Regular rate and rhythm. Abdomen soft. Bilateral groin area did have evidence of cutaneous candidiasis. The redness has decreased and no drainage. LABS: Hemoglobin is 12.6, white count 6.2 with a BUN of 13, creatinine 0.59. DIAGNOSTIC IMPRESSION AND PLAN: Patient with bilateral groin and breast fold area cutaneous candidiasis with secondary cellulitis. Patient is currently covered with nystatin powder and Cefazolin to continue for now. Will monitor the clinical course closely. Continue supportive care. MMODL / IJN: [id number] /
[2019-02-14] MEDS: HYDROmorphone 0.5 MG/0.5 ML SYRINGE IVP PRN ×4 (01:43→17:17)
[2019-02-14] MEDS: LORATADINE 10 MG TAB PO SCH (05:13)
[2019-02-14] MEDS: PANTOPRAZOLE 40 MG TABLET PO SCH (05:13)
[2019-02-14] MEDS: HYDROcodone/APAP 5-325MG 1 EACH TAB PO PRN (05:13)
[2019-02-14] MEDS: ceFAZolin IN SWFI 2 GM/20 ML SYRINGE IVP SCH ×2 (05:16→14:27)
[2019-02-14 06:49] LABS: Glucose,Whole Blood 84 mg/dL (75-99)
[2019-02-14 09:10] LABS: Basophils # (A) 0.1 k/uL (0-0.2); Basophils % (A) 1 %; Eosinophils # (A) 0.5 k/uL (0-0.7); Eosinophils % (A) 7 %; HCT 40.5 % (34.0-46.0); HGB 12.7 gm/dL (11.4-16.0); Hypochromasia Slight; Lymphocytes % (A) 15 %; MCH 27.5 pg (25.0-35.0); MCHC 31.3 g/dL (31.0-37.0); MCV 87.9 fL (80.0-100.0); Mean Platelet Volume 6.7; Monocytes # (A) 0.5 k/uL (0-1.0); Monocytes % (A) 7 %; Neutrophils # (A) 4.9 k/uL (1.3-7.7); Neutrophils % (A) 69 %; Platelet Count 141 k/uL (150-450); RDW 15.8 % (11.5-15.5); WBC 7.1 k/uL (3.8-10.6)
[2019-02-14 09:19] LABS: Anion Gap 5 mmol/L; Blood Urea Nitrogen 10 mg/dL (7-17); Calcium 9.1 mg/dL (8.4-10.2); Carbon Dioxide 31 mmol/L (22-30); Chloride 103 mmol/L (98-107); Glucose 86 mg/dL (74-99); Potassium 3.9 mmol/L (3.5-5.1); Sodium 139 mmol/L (137-145)
[2019-02-14] MEDS: HEPARIN SODIUM,PORCINE 5,000 UNIT/ML 1 ML VIAL SQ SCH (09:21)
[2019-02-14] MEDS: FUROSEMIDE 20 MG TAB PO SCH (09:22)
[2019-02-14] MEDS: MULTIVITAMINS, THERA 1 EACH TAB PO SCH (09:22)
[2019-02-14] MEDS: CHOLECALCIFEROL 1,000 UNIT TAB PO SCH (09:23)
[2019-02-14] MEDS: PARoxetine 20 MG TAB PO SCH (09:23)
[2019-02-14] MEDS: ISOSORBIDE MONONITRATE ER 60 MG TAB.ER.24H PO SCH (09:23)
[2019-02-14] MEDS: FLUCONAZOLE 100 MG TAB PO SCH (09:23)
[2019-02-14] MEDS: amLODIPine 10 MG TAB PO SCH (09:23)
[2019-02-14] MEDS: ASPIRIN 81 MG PO SCH (09:23)
[2019-02-14] MEDS: DOCUSATE 100 MG CAP PO SCH (09:23)
[2019-02-14] MEDS: INSULIN ASPART (NovoLOG) 100 UNIT/ML VIAL SQ SCH ×3 (09:23→17:17)
[2019-02-14] MEDS: POTASSIUM CHLORIDE ER 10 MEQ TAB.ER.PRT PO SCH (09:23)
[2019-02-14] MEDS: MEMANTINE 10 MG TAB PO SCH (09:23)
[2019-02-14] MEDS: ALLOPURINOL 100 MG TAB PO SCH (09:23)
[2019-02-14] MEDS: DICLOFENAC SODIUM GEL 100 GM TUBE TOPICAL SCH (09:25)
[2019-02-14] MEDS: NYSTATIN 100,000 UNIT/GM POWD 15 GM TOPICAL SCH (09:25)
[2019-02-14] MEDS: BENZOCAINE/MENTHOL SPRAY 1 GM/SPRAY AEROSOL TOPICAL SCH (09:26)
[2019-02-14] MEDS: TROSPIUM CHLORIDE 20 MG TABLET PO SCH (09:27)
[2019-02-14] MEDS: SODIUM CHLORIDE 0.9% 1,000 ML IV SCH (09:27)
--- NOTE | 2019-02-14 10:26 | P.PN ---
Subjective Progress Note Date: 02/14/19 CHIEF COMPLAINT: abdominal distention HISTORY OF PRESENT ILLNESS: patient seen and examined at the bedside. Patient is a poor historian. Patient is answering yes or no questions only. She denies abdominal pain. Denies nausea or vomiting. Denies constipation. Denies diarrhea. PHYSICAL EXAM: VITAL SIGNS: Reviewed. GENERAL: Well-developed in no acute distress. HEENT: No sclera icterus. Extraocular movements grossly intact. Moist buccal mucosa. Head is atraumatic, normocephalic. ABDOMEN: Soft. appears distended.. Nontender. NEUROLOGIC: Alert and oriented. Cranial nerves II through XII grossly intact. ASSESSMENT: 1. Abdominal distention, CT negative for bowel obstruction 2. Bilateral groin cellulitis PLAN: Patient is currently denying abdominal pain. She appears comfortable. Continue current diet. She is stable from a surgical standpoint. We will sign off. Please re-consult if needed. Nurse practitioner note has been reviewed by physician. Signing provider agrees with the documented findings, assessment, and plan of care. Objective - Vital Signs Vital signs: Vital Signs Temp 98.7 F 02/14/19 05:00 Pulse 79 02/14/19 05:00 Resp 18 02/14/19 05:00 BP 140/73 02/14/19 05:00 Pulse Ox 95 02/14/19 05:00 Intake & Output 02/13/19 02/14/19 02/14/19 18:59 06:59 18:59 Other: Voiding Method Bedpan Bedpan Bedpan Incontinent Incontinent Incontinent # Voids 1 3 # Bowel Movements 0 - Labs CBC & Chem 7: 02/14/19 08:22 02/14/19 08:22 Labs: Abnormal Lab Results - Last 24 Hours (Table) 02/13/19 02/14/19 02/14/19 Range/Units 20:05 08:22 08:22 RDW 15.8 H (11.5-15.5) % Plt Count 141 L (150-450) k/uL Carbon Dioxide 31 H (22-30) mmol/L POC Glucose (mg/dL) 102 H (75-99) mg/dL Microbiology - Last 24 Hours (Table) 02/11/19 20:38 Blood Culture - Preliminary Blood No Growth after 48 hours
[2019-02-14 13:14] LABS: Glucose,Whole Blood 92 mg/dL (75-99)
[2019-02-14 14:55] VITALS: BP 143/75; PULSE 61; RESP 20; TEMP 98.5
[2019-02-14 17:28] LABS: Glucose,Whole Blood 105 mg/dL (75-99)
--- NOTE | 2019-02-15 00:34 | PN ---
PROGRESS NOTE DATE OF SERVICE: 02/14/2019. REASON FOR FOLLOWUP: Bilateral groin and breast clinically significant cellulitis. INTERVAL HISTORY: The patient was seen on rounds on the floor. The patient has been afebrile. He has been breathing comfortably. Slightly lethargic and not a good historian. No nausea, vomiting, or any diarrhea per the nursing staff. The patient denies any complaint. PHYSICAL EXAMINATION: Blood pressure is 143/75 with a pulse of 61, temperature of 98.5, pulse ox 97% on room air. GENERAL DESCRIPTION: An elderly female, lying in bed in no distress. RESPIRATORY SYSTEM: Unlabored breathing. Clear to auscultation anteriorly. HEART: S1, S2. Regular. ABDOMEN: Soft, nondistended. No guarding or rigidity. EXTREMITIES: Bilateral groin and area swelling slightly decreased. No drainage. LABS: Hemoglobin is 12.7, white count 7.1. BUN of 10, creatinine 0.58. DIAGNOSTIC IMPRESSION AND PLAN: Patient with bilateral groin and breasts with secondary cellulitis. Patient is currently covered with Nystatin powder and oral Diflucan along with cefazolin. Family is leaning more toward hospice care. Antibiotic can be safely discontinued. Continue supportive care. MMODL / IJN: [id number] /
--- NOTE | 2019-02-15 06:44 | PN ---
PROGRESS NOTE DATE OF SERVICE: 02/14/2019 PRESENTING COMPLAINT: Weak and tired. INTERVAL HISTORY: [facility], seen by Dr. Leon and no further thing to be done. CT scan was unremarkable. The patient is getting treated with antibiotics for cellulitis of the groin area and fungal infection. The patient's 2 daughters are at the bedside. They did state that the patient is pretty much gradually declining at the ECF. Needs support to be fed and occasionally recognized them, overall declining and quality of life is not good. REVIEW OF SYSTEMS: Could not be done as patient rather lethargic. CURRENT MEDICATIONS: Current medications are reviewed. PHYSICAL EXAMINATION: On examination, temperature 98.7, pulse 79, respiration 18, blood pressure 140/73, pulse ox 95% on room air. GENERAL APPEARANCE: Lying on bed, lethargic. EYES: Pupils equal. Conjunctivae pale. HENT: Oral cavity dry. NECK; JVD unable to assess. RESPIRATORY: Effort normal. LUNGS: Diminished breath sounds. CARDIOVASCULAR: First and second sounds normal. No edema. ABDOMEN: Slightly distended, soft. Liver and spleen not palpable. PSYCHIATRY: Patient is rather lethargic. DERMATOLOGICAL: Areas in both the groin shows fungal infection and redness. NEUROLOGICAL: Not following commands, lethargic. INVESTIGATIONS: White count 7.1, hemoglobin 12.7. Potassium 3.9. ASSESSMENT: 1. Acute cellulitis of both the groin area with secondary Tiff infection possibly cause of patient's lower abdominal pain. 2. Chronic gout. 3. Hyperlipidemia. 4. Diabetes mellitus type 2, chronically on insulin. 5. Depression, not otherwise specified. 6. Severe cognitive impairment from late onset Alzheimer's dementia. 7. Advanced medical debility. PLAN: Continue current medication and treatment plan. I spoke to the nurse to try to assist the patient with feeding. ADVANCED CARE PLANNING: Had a lengthy discussion with both the daughters. They agree that the patient's overall prognosis is not good and quality life is rapidly declining. They did not want any artificial feeding for the patient, which is very reasonable. Also discussed about hospice and informational visit will be done for the same. The patient is getting some Dilaudid p.r.n. for the groin pain. More than 35 minutes was spent in discussion of this aspect of the case. MMODL / IJN: [id number] /
--- NOTE | 2019-02-16 09:47 | DS ---
DISCHARGE SUMMARY DATE OF ADMISSION: 02/11/2019 DATE OF DISCHARGE: 02/14/2019 FINAL DIAGNOSES: 1. Acute cellulitis of both the groin area with secondary Tiff infection causing lower abdominal pain. 2. Chronic gout. 3. Hyperlipidemia. 4. Diabetes mellitus type 2, chronically on insulin. 5. Depression, not otherwise specified. 6. Severe cognitive impairment from late onset Alzheimer's dementia. 7. Advancing medical debility. CONSULTATION: Dr. Leon from General Surgery; Dr. Ibanez from Infectious Disease. HOSPITAL COURSE: This patient presented with abdominal pain. Abdominal pain workup was negative including CT scan of the abdomen seen by Dr. Leon. Spoke to patient's daughters. Patient's quality of life was poor and declining. The patient is being discharged to hospice service under [facility]. MEDICATIONS: Pain control. On examination, decreased breath sounds. Patient is noncommunicative, barely eating. MMODL / IJN: [id number] /
== END 2019-02-14 19:40 | DRG 603 ==
LOC: EC 15:48 → 3NMEDONC 19:25 → OBSVTOIN 02-13 15:53 → 3NMEDONC 02-13 16:16 → 4MS4W 02-14 06:50
PROVIDERS: ADMIT Hospitalist; ATTEND Hospitalist
DX: L03.314 Cellulitis of groin (principal); K57.92 Diverticulitis of intestine, part unspecified, without perforation or abscess without bleeding; D69.6 Thrombocytopenia, unspecified; I11.0 Hypertensive heart disease with heart failure; I50.9 Heart failure, unspecified; E11.9 Type 2 diabetes mellitus without complications; F02.80 Dementia in other diseases classified elsewhere, unspecified severity, without behavioral disturbance, psychotic disturbance, mood disturbance, and anxiety; G30.1 Alzheimer's disease with late onset; B37.3 Candidiasis of vulva and vagina; B37.2 Candidiasis of skin and nail; E65 Localized adiposity; E78.5 Hyperlipidemia, unspecified; F32.9 Major depressive disorder, single episode, unspecified; G47.33 Obstructive sleep apnea (adult) (pediatric); I25.10 Atherosclerotic heart disease of native coronary artery without angina pectoris; L30.4 Erythema intertrigo; M1A.9XX0 Chronic gout, unspecified, without tophus (tophi); F41.9 Anxiety disorder, unspecified; R26.9 Unspecified abnormalities of gait and mobility; M15.9 Polyosteoarthritis, unspecified; R32 Unspecified urinary incontinence; Z79.4 Long term (current) use of insulin; Z79.82 Long term (current) use of aspirin; Z79.899 Other long term (current) drug therapy; Z86.73 Personal history of transient ischemic attack (TIA), and cerebral infarction without residual deficits; Z87.01 Personal history of pneumonia (recurrent); Z87.440 Personal history of urinary (tract) infections; Z95.5 Presence of coronary angioplasty implant and graft; Z90.710 Acquired absence of both cervix and uterus; Z98.42 Cataract extraction status, left eye; Z98.41 Cataract extraction status, right eye; Z96.1 Presence of intraocular lens; Z91.81 History of falling
CPT/HCPCS: 36415; 71045; 74176; 80048; 80053; 81003; 85025; 87040; 87086; 96374; 99285

== ENCOUNTER 2019-02-14 19:48 | Inpatient (IN) | payer MEDICAID ==
[2019-02-14] MEDS ORDERED: ARTIFICIAL TEARS-HYPROMELLOSE DROPS 15 ML BTL BOTH EYES PRN (20:56)
[2019-02-14] MEDS ORDERED: ONDANSETRON 4 MG TAB PO PRN (20:56)
[2019-02-14] MEDS ORDERED: MAGNESIUM HYDROXIDE 2,400 MG/10 ML CUP PO PRN (20:56)
[2019-02-14] MEDS ORDERED: MELATONIN 5 MG TABLET PO SCH (21:00)
[2019-02-14] MEDS ORDERED: PARoxetine 20 MG TAB PO SCH (21:00)
[2019-02-14] MEDS ORDERED: INSULIN DETEMIR (LEVEMIR) 100 UNIT/ML SYR SQ SCH (21:00)
[2019-02-14] MEDS ORDERED: ATORVASTATIN 10 MG TAB PO SCH (21:00)
[2019-02-14] MEDS ORDERED: HYDROcodone/APAP 5-325MG 1 EACH TAB PO PRN (21:08)
[2019-02-14 21:27] VITALS: BMI 39.0
[2019-02-14] MEDS: DICLOFENAC SODIUM GEL 100 GM TUBE TOPICAL SCH (21:58)
[2019-02-14] MEDS: MEMANTINE 10 MG TAB PO SCH (21:59)
[2019-02-14] MEDS: DOCUSATE 100 MG CAP PO SCH (21:59)
[2019-02-14] MEDS: NYSTATIN 100,000 UNIT/GM POWD 15 GM TOPICAL SCH (22:30)
[2019-02-14] MEDS: HYDROmorphone 0.5 MG/0.5 ML SYRINGE IVP PRN (22:30)
[2019-02-15] MEDS: HYDROmorphone 0.5 MG/0.5 ML SYRINGE IVP PRN ×2 (05:47→09:30)
[2019-02-15] MEDS ORDERED: LORATADINE 10 MG TAB PO SCH (06:00)
[2019-02-15 07:30] LABS: Glucose,Whole Blood 93 mg/dL (75-99)
[2019-02-15] MEDS ORDERED: PANTOPRAZOLE 40 MG TABLET PO SCH (07:30)
[2019-02-15] MEDS: DOCUSATE 100 MG CAP PO SCH (08:23)
[2019-02-15] MEDS: DICLOFENAC SODIUM GEL 100 GM TUBE TOPICAL SCH (08:24)
[2019-02-15] MEDS: MEMANTINE 10 MG TAB PO SCH (08:24)
[2019-02-15] MEDS: NYSTATIN 100,000 UNIT/GM POWD 15 GM TOPICAL SCH ×2 (08:24→16:58)
[2019-02-15] MEDS ORDERED: FUROSEMIDE 20 MG TAB PO SCH (09:00)
[2019-02-15] MEDS ORDERED: ISOSORBIDE MONONITRATE ER 60 MG TAB.ER.24H PO SCH (09:00)
[2019-02-15] MEDS ORDERED: ALLOPURINOL 100 MG TAB PO SCH (09:00)
[2019-02-15] MEDS ORDERED: MORPHINE CONC SOLN 10mg/0.5mL ORAL SYRG PO PRN (11:28)
[2019-02-15 11:37] LABS: Glucose,Whole Blood 98 mg/dL (75-99)
[2019-02-15 14:55] VITALS: BP 131/74; PULSE 72; RESP 16; TEMP 98.4
--- NOTE | 2019-02-15 16:23 | DS ---
DISCHARGE SUMMARY DATE OF ADMISSION: 02/14/2019 DATE OF DISCHARGE: 02/15/2019 FINAL DIAGNOSES: 1. Advanced severe cognitive impairment from late-onset Alzheimer's dementia. 2. Acute cellulitis of both the groin areas with secondary abhishek infection. 3. Chronic gout. 4. Hyperlipidemia. 5. Diabetes mellitus, type 2, chronically on insulin. 6. Depression not otherwise specified. 7. Advanced medical debility. HOSPITAL COURSE: This patient was admitted to hospice for advancing dementia and overall failing health, not eating or drinking. Family decided to put the patient on hospice. The patient is barely eating. Pain control with Roxanol p.r.n. On examination, she is lying in bed. Lungs have decreased breath sounds. She is just about arousable. DISCHARGE MEDICATIONS: 1. Ativan 0.5 mg q.6 p.r.n. 2. Roxanol 5 mg p.o. q.4 p.r.n. 30 mL. 3. Mycostatin 1 application topically t.i.d. 4. Scopolamine 1.5 mg patch every 72 hours p.r.n. for secretions. DISPOSITION: [facility] on board. ADDITIONAL NOTE: Care was discussed with her daughters at the bedside. Spoke with the home care team and Tara, the case manager specialist. Discussion and discharge planning more than 35 minutes. MMALFONSOL / RICON: [id number] /
[2019-02-15 17:12] LABS: Glucose,Whole Blood 125 mg/dL (75-99)
[2019-02-16 07:28] LABS: Glucose,Whole Blood 105 mg/dL (75-99)
== END 2019-02-15 18:24 | disposition hospice, inpatient (51) | DRG 57 ==
LOC: 4MS4W 19:49
PROVIDERS: ADMIT Hospitalist; ATTEND Hospitalist
DX: G30.1 Alzheimer's disease with late onset (principal); L03.314 Cellulitis of groin; I11.0 Hypertensive heart disease with heart failure; E11.9 Type 2 diabetes mellitus without complications; F02.80 Dementia in other diseases classified elsewhere, unspecified severity, without behavioral disturbance, psychotic disturbance, mood disturbance, and anxiety; B37.2 Candidiasis of skin and nail; E78.5 Hyperlipidemia, unspecified; Z51.5 Encounter for palliative care; Z66 Do not resuscitate; I25.10 Atherosclerotic heart disease of native coronary artery without angina pectoris; M1A.9XX0 Chronic gout, unspecified, without tophus (tophi); F41.9 Anxiety disorder, unspecified; F32.9 Major depressive disorder, single episode, unspecified; Z79.82 Long term (current) use of aspirin; Z79.4 Long term (current) use of insulin; Z79.899 Other long term (current) drug therapy; Z95.5 Presence of coronary angioplasty implant and graft; Z87.01 Personal history of pneumonia (recurrent); Z86.73 Personal history of transient ischemic attack (TIA), and cerebral infarction without residual deficits